=== PATIENT | male | born 1955 | race African-American/Black ===

== ENCOUNTER 2022-09-30 23:49 | Inpatient (IN) | payer MEDICAID, OTHER ==
[~2022-09-30] VITALS: Ht 175.3 cm; Wt 67.1 kg
--- NOTE | 2022-09-30 23:55 | NUR ---
GINA FROM [facility] C.O FEVER X 1 DAY
[2022-10-01] MEDS ORDERED: ONDANSETRON HCL/PF 4 MG/2 ML VIAL IVP ONE (00:30)
[2022-10-01] MEDS ORDERED: IV NS 0.9% 500 ML BAG IV ONE (00:30)
--- NOTE | 2022-10-01 00:45 | NUR ---
BLOOD COLLECTED AND SENT TO LAB
[2022-10-01] MEDS ORDERED: ONDANSETRON HCL/PF 4 MG/2 ML VIAL ONE (00:55)
--- NOTE | 2022-10-01 01:07 | NUR ---
COVID AND FLU SWABS COLLECTED AND SENT TO LAB.
[2022-10-01 01:10] LABS: BASOPHILS % (AUTO) 0.6 % (0.0-2.0); EOSINOPHILS % (AUTO) 0.1 % (0.0-6.0); HEMATOCRIT 39 % (39-51); HEMOGLOBIN 12.6 g/dL (13.5-17.5); LYMPHOCYTES # (AUTO) 1.1 K/uL (0.8-4.8); LYMPHOCYTES % (AUTO) 18.5 % (20.0-44.0); MEAN CORPUSCULAR HGB CONC 32 g/dl (31.0-36.0); MEAN CORPUSCULAR VOLUME 79 fL (80-96); MONOCYTES # (AUTO) 0.6 K/uL (0.1-1.30); MONOCYTES % (AUTO) 9.5 % (2.0-12.0); NEUTROPHILS # (AUTO) 4.4 K/uL (1.8-8.9); NEUTROPHILS % (AUTO) 71.3 % (43.0-81.0); PLATELET COUNT (AUTO) 168 K/uL (150-450); RED BLOOD CELL COUNT(AUTO) 4.92 MIL/uL (4.5-6.0); WHITE BLOOD COUNT (AUTO) 6.2 K/uL (4.3-11.0)
--- NOTE | 2022-10-01 01:14 | NUR ---
URINE COLLECTED AND SENT TO LAB
[2022-10-01 01:27] LABS: CALCIUM, SERUM 8.9 mg/dL (8.5-10.1); CARBON DIOXIDE 27 mmol/L (21-32); CHLORIDE 100 mmol/L (98-107); CREATININE 1.2 mg/dL (0.6-1.3); GLUCOSE 127 mg/dL (74-106); POTASSIUM 3.4 mmol/L (3.5-5.1); SODIUM SERUM 135 mmol/L (136-145); UREA NITROGEN, BLOOD 14 mg/dL (7-18)
[2022-10-01 01:40] LABS: ALANINE AMINOTRANSFERASE 14 U/L (12-78); ALBUMIN 3.3 g/dL (3.4-5.0); ALKALINE PHOSPHATASE 90 U/L (46-116); ASPARTATE AMINOTRANSFERASE 27 U/L (15-37); BILIRUBIN,DIRECT 0.1 mg/dL (0.0-0.2); BILIRUBIN,TOTAL 0.2 mg/dL (0.2-1.0); TOTAL PROTEIN, SERUM 8.3 g/dL (6.4-8.2)
[2022-10-01] MEDS ORDERED: ASPIRIN 325 MG TABLET PO ONE (02:00)
[2022-10-01 02:12] LABS: BILIRUBIN,URINE NEGATIVE (NEGATIVE); COLOR,URINE YELLOW (YELLOW); LEUKOCYTE ESTERASE ,URINE NEGATIVE (NEGATIVE); NITRITE, URINE NEGATIVE (NEGATIVE); PH,URINE 6.5 (5.0-8.0); PROTEIN,URINE 1+ mg/dl (NEGATIVE); UGLUCOSE NEGATIVE (NEGATIVE); UROBILINOGEN,URINE 0.2 EU/dL (0.2)
[2022-10-01 02:17] LABS: BACTERIA,URINE Rare /HPF (None Seen); SQUAMOUS EPITHELIAL CELL,UR Few /HPF (None Seen); WBC,URINE 0-2 /HPF (0-3)
[2022-10-01] MEDS ORDERED: ONDANSETRON HCL/PF 4 MG/2 ML VIAL IVP PRN (02:30)
[2022-10-01] MEDS ORDERED: ACETAMINOPHEN 325 MG TABLET PO PRN ×2 (02:30→09:00)
[2022-10-01] MEDS ORDERED: MORPHINE SULFATE INJ 2 MG/ML DISP.SYRIN IV PRN (02:30)
[2022-10-01] MEDS ORDERED: PIPERACILLIN /TAZOBACTAM 3.375 G VIAL IV ONE (02:44)
[2022-10-01] MEDS ORDERED: ASPIRIN 325 MG TABLET ONE (02:53)
[2022-10-01] MEDS ORDERED: VANCOMYCIN 1 GM in IV D5W 250 ML IV ONE (03:00)
[2022-10-01] MEDS ORDERED: PIPERACILLIN /TAZOBACTAM 3.375 G in IV D5W 50 ML IV ONE (03:00)
[2022-10-01] MEDS ORDERED: VANCOMYCIN 1 GM VIAL ONE (03:13)
--- NOTE | 2022-10-01 03:32 | NUR ---
PT BACK FROM CT Addendum: 10/01/22 at 0424 by ROLLY WRONG PT
[2022-10-01] MEDS ORDERED: ASPI-1420 PO (07:55)
[2022-10-01] MEDS ORDERED: DOCU-141 PO (07:55)
[2022-10-01] MEDS ORDERED: APIX5TAB PO (07:55)
[2022-10-01] MEDS ORDERED: MAGN400O6 PO (07:55)
[2022-10-01] MEDS ORDERED: ACET650S11 RC (07:55)
[2022-10-01] MEDS ORDERED: METF-440 PO (07:55)
[2022-10-01] MEDS ORDERED: MEMA10TA PO (07:55)
[2022-10-01] MEDS ORDERED: INSU100V11 SQ (07:55)
[2022-10-01] MEDS ORDERED: SENN-261 PO (07:55)
[2022-10-01] MEDS ORDERED: LOSA100T3 PO (07:55)
[2022-10-01] MEDS ORDERED: METO25TA20 PO (07:55)
[2022-10-01] MEDS ORDERED: DIVA125C2 PO ×2 (07:55)
[2022-10-01] MEDS ORDERED: LEVE500T9 PO (07:55)
[2022-10-01] MEDS ORDERED: BENZ-13 PO (07:55)
[2022-10-01] MEDS ORDERED: MULT-447 PO (07:55)
[2022-10-01] MEDS ORDERED: TAMS-12 PO (07:55)
[2022-10-01] MEDS ORDERED: TRAZ-257 PO (07:55)
[2022-10-01] MEDS ORDERED: ACET-868 PO (07:55)
[2022-10-01] MEDS ORDERED: OLAN2.5T3 PO (07:55)
[2022-10-01] MEDS ORDERED: CHOL100043 PO (07:55)
[2022-10-01] MEDS ORDERED: FINA5TAB11 PO (07:55)
[2022-10-01] MEDS ORDERED: ATOR40TA PO (07:55)
[2022-10-01] MEDS ORDERED: FAMO20TA8 PO (07:55)
[2022-10-01] MEDS ORDERED: IPRA3AMP23 IH (07:55)
[2022-10-01] MEDS ORDERED: OLAN5TAB3 PO (07:55)
--- NOTE | 2022-10-01 08:00 | NUR ---
ROOM 321-1
--- NOTE | 2022-10-01 08:27 | NUR ---
ROOM 326-1 PER INCLINED RAILWAY OPERATOR
--- NOTE | 2022-10-01 08:34 | NUR ---
CHRALENE GAINES, FOR REPORT, NOT AVAILABLE AT THIS TIME.
--- NOTE | 2022-10-01 08:44 | NUR ---
PT REPORT GIVEN TO CHARLENE GAINES
[2022-10-01] MEDS ORDERED: DEXTROSE 50%-WATER 50 ML DISP.SYRIN IV PRN (09:00)
[2022-10-01] MEDS ORDERED: MAGNESIUM HYDROXIDE 30 ML UDC PO PRN (09:00)
[2022-10-01] MEDS ORDERED: TRAZODONE 50 MG TABLET PO PRN (09:00)
[2022-10-01] MEDS ORDERED: ACETAMINOPHEN 650 MG/SUPP.RECT RC PRN (09:00)
--- NOTE | 2022-10-01 09:22 | NUR ---
MIDLINE NURSE AT BEDSIDE
--- NOTE | 2022-10-01 09:59 | NUR ---
MOVED TO ROOM SAFELY
--- NOTE | 2022-10-01 10:10 | NUR ---
RN NOTE PATIENT CAME TO UNIT VIA GURNEY WITH NO SIGN OF DISTRESS FROM ER. REPORT RECEIVED FROM ER NURSE. V/S TAKEN, STABLE AND RECORDED. SKIN ASSESSMENT DONE, SKIN INTACT. BELONGINGS CHECKED AND SIGNED. PATIENT WAS ORIENTED TO ROOM SET UP AND EDUCATED ON THE USE OF CALL LIGHT. PATIENT AWAKE IN BED RESTING A/O X 1. NO S/S OF PAIN NOTED AT THIS TIME. ON ROOM AIR, NO DISTRESS OR SHORTNESS OF BREATH NOTED. IV ACCESS JEFFERY MIDLINE, INTACT, PATENT AND FLUSHING WELL. FALL AND SAFETY MEASURES IN PLACE, BED ALARM ON, BED IN LOW AND LOCK POSITION, CALL LIGHT AND TABLE WITHIN EASY REACH, SIDE RAILS X2. WILL CONTINUE TO MONITOR.
[2022-10-01] MEDS: TAMSULOSIN 0.4 MG CAP.SR.24H PO SCH (11:33)
[2022-10-01] MEDS: SENNOSIDES 8.6 MG TABLET PO SCH (11:33)
[2022-10-01] MEDS: CHOLECALCIFEROL (VITAMIN D 3) 400 UNIT TABLET PO SCH (11:33)
[2022-10-01] MEDS: METFORMIN 500 MG TABLET PO SCH ×2 (11:33→17:14)
[2022-10-01] MEDS: LEVETIRACETAM (250 MG) 250 MG TABLET PO SCH ×2 (11:34→21:32)
[2022-10-01] MEDS: MEMANTINE HCL 5 MG TABLET PO SCH ×2 (11:34→17:14)
[2022-10-01] MEDS: BENZONATATE 100 MG CAPSULE PO SCH ×3 (11:34→17:13)
[2022-10-01] MEDS: FAMOTIDINE (20 MG) 20 MG TABLET PO SCH (11:34)
[2022-10-01] MEDS: ASPIRIN EC 81 MG TABLET.DR PO SCH (11:34)
[2022-10-01] MEDS: LOSARTAN POTASSIUM 50 MG TABLET PO SCH (11:34)
[2022-10-01] MEDS: MULTIVITAMINS,THERAGRAN 1 UDTAB TABLET PO SCH (11:35)
[2022-10-01] MEDS: METOPROLOL TARTRATE 50 MG TABLET PO SCH ×2 (11:35→21:00)
[2022-10-01] MEDS: OLANZAPINE 5 MG TABLET PO SCH ×3 (11:35→17:13)
[2022-10-01] MEDS: DOCUSATE SODIUM 100 MG CAPSULE PO SCH ×2 (11:35→17:14)
[2022-10-01] MEDS: APIXABAN 5 MG TABLET PO SCH ×2 (11:37→17:15)
[2022-10-01] MEDS: FINASTERIDE (5 MG) 5 MG TABLET PO SCH (11:41)
[2022-10-01] MEDS ORDERED: POTASSIUM CHLORIDE 20 MEQ TAB.PRT.SR PO ONE (12:00)
[2022-10-01 12:05] LABS: PHOSPHORUS 4.1 mg/dL (2.5-4.9)
[2022-10-01] MEDS: BLOOD SUGAR DIAGNOSTIC 1 EACH STRIP IN SCH ×3 (12:13→21:33)
[2022-10-01 12:19] LABS: THYROID STIMULATING HORMONE 1.171 uIU/mL (0.358-3.74)
[2022-10-01] MEDS: IV NS 0.9% 1,000 ML IV SCH ×2 (13:28→17:29)
[2022-10-01] MEDS: DIVALPROEX SODIUM 500 MG TABLET.DR PO SCH ×2 (13:28→17:13)
[2022-10-01 14:35] VITALS: BP 159/99
[2022-10-01 16:24] VITALS: BP 123/81
--- NOTE | 2022-10-01 19:03 | NUR ---
RN CLOSING NOTE PATIENT AWAKE IN BED RESTING A/O X 1. NO S/S OF PAIN NOTED AT THIS TIME. ON ROOM AIR, NO DISTRESS OR SHORTNESS OF BREATH NOTED. IV ACCESS JEFFERY MIDLINE, INTACT, PATENT AND FLUSHING WELL. SCHEDULE MEDICATIONS ADMINISTERED. PATIENT WAS TURNED AND REPOSITIONED PROTOCOL. FALL AND SAFETY MEASURES IN PLACE, BED ALARM ON, BED IN LOW AND LOCK POSITION, CALL LIGHT AND TABLE WITHIN EASY REACH, SIDE RAILS X2. WILL ENDORSE TO TRIP RIDER.
--- NOTE | 2022-10-01 19:39 | NUR ---
RN OPENING NOTE PATIENT AWAKE IN BED RESTING A/O X 1. NO S/S OF PAIN NOTED AT THIS TIME. ON ROOM AIR, NO DISTRESS OR SHORTNESS OF BREATH NOTED. IV ACCESS JEFFERY MIDLINE, INTACT, PATENT AND FLUSHING WELL. FALL AND SAFETY MEASURES IN PLACE, BED ALARM ON, BED IN LOW AND LOCK POSITION, CALL LIGHT AND TABLE WITHIN EASY REACH, SIDE RAILS X2.
[2022-10-01 20:00] VITALS: BP 105/57
[2022-10-01] MEDS: VANCOMYCIN 1 GM in IV D5W 250 ML IV SCH (20:16)
[2022-10-01] MEDS ORDERED: CEFEPIME 1 GM in IV D5W 50 ML IV SCH (21:00)
[2022-10-01] MEDS: ATORVASTATIN 40 MG TABLET PO SCH (21:32)
[2022-10-01] MEDS: OLANZAPINE 2.5 MG TABLET PO SCH (21:33)
[2022-10-01] MEDS: INSULIN REGULAR, HUMAN 100 UNIT/ML 3 ML VIAL SQ PRN (21:41)
[2022-10-01] MEDS: CEFEPIME 2 GM in IV D5W 100 ML IV SCH (21:42)
[2022-10-02] VITALS: BP 114/69
--- NOTE | 2022-10-02 00:53 | NUR ---
RN NOTE PRN TRAZODONE GIVEN FOR SLEEP. TOLERATED WELL.
[2022-10-02 04:00] VITALS: BP 112/76
[2022-10-02] MEDS: INSULIN REGULAR, HUMAN 100 UNIT/ML 3 ML VIAL SQ PRN ×2 (06:10→18:26)
[2022-10-02] MEDS: BLOOD SUGAR DIAGNOSTIC 1 EACH STRIP IN SCH ×4 (06:31→21:51)
--- NOTE | 2022-10-02 06:41 | NUR ---
RN CLOSING NOTE PATIENT AWAKE IN BED RESTING A/O X 1. NO S/S OF PAIN NOTED AT THIS TIME. ON ROOM AIR, NO DISTRESS OR SHORTNESS OF BREATH NOTED. IV ACCESS JEFFERY MIDLINE, INTACT, PATENT AND FLUSHING WELL. FALL AND SAFETY MEASURES IN PLACE, BED ALARM ON, BED IN LOW AND LOCK POSITION, CALL LIGHT AND TABLE WITHIN EASY REACH, SIDE RAILS X2.WILL ENDORSE CARE TO DAY SHIFT NURSE.
[2022-10-02 06:43] LABS: EOSINOPHILS % (AUTO) 7.6 % (0.0-6.0); HEMATOCRIT 34 % (39-51); HEMOGLOBIN 11.2 g/dL (13.5-17.5); LYMPHOCYTES # (AUTO) 1.1 K/uL (0.8-4.8); MEAN CORPUSCULAR HGB CONC 33 g/dl (31.0-36.0); MEAN CORPUSCULAR VOLUME 78 fL (80-96); MONOCYTES # (AUTO) 0.4 K/uL (0.1-1.30); MONOCYTES % (AUTO) 14.2 % (2.0-12.0); NEUTROPHILS % (AUTO) 37.2 % (43.0-81.0); PLATELET COUNT (AUTO) 149 K/uL (150-450); RED BLOOD CELL COUNT(AUTO) 4.32 MIL/uL (4.5-6.0); WHITE BLOOD COUNT (AUTO) 2.8 K/uL (4.3-11.0)
[2022-10-02 07:25] LABS: ALBUMIN 2.7 g/dL (3.4-5.0); BILIRUBIN,TOTAL 0.2 mg/dL (0.2-1.0); CALCIUM, SERUM 8.3 mg/dL (8.5-10.1); CREATININE 0.9 mg/dL (0.6-1.3); MAGNESIUM 1.9 mg/dL (1.8-2.4); PHOSPHORUS 3.4 mg/dL (2.5-4.9); POTASSIUM 3.7 mmol/L (3.5-5.1); TOTAL PROTEIN, SERUM 7.1 g/dL (6.4-8.2)
--- NOTE | 2022-10-02 07:36 | NUR ---
RN OPENING NOTE PATIENT AWAKE IN BED ASLEEP BUT AROUSABLE , WITH SITTER AT BEDSIDE A/O X 1. NO S/S OF PAIN NOTED AT THIS TIME. ON ROOM AIR, NO DISTRESS OR SHORTNESS OF BREATH NOTED. IV ACCESS JEFFERY MIDLINE, INTACT SL , PATENT AND INTACT . NO FEVER NOTED AND NO S/S OF COVID . FALL AND SAFETY MEASURES IN PLACE, BED ALARM ON, BED IN LOW AND LOCK POSITION, CALL LIGHT AND TABLE WITHIN EASY REACH, SIDE RAILS X2. WILL CONTINUE TO MONITOR
[2022-10-02] MEDS: DIVALPROEX SODIUM 500 MG TABLET.DR PO SCH ×3 (08:21→16:46)
[2022-10-02] MEDS: MULTIVITAMINS,THERAGRAN 1 UDTAB TABLET PO SCH (08:22)
[2022-10-02] MEDS: OLANZAPINE 5 MG TABLET PO SCH ×3 (08:22→16:46)
[2022-10-02] MEDS: FAMOTIDINE (20 MG) 20 MG TABLET PO SCH (08:22)
[2022-10-02] MEDS: LEVETIRACETAM (250 MG) 250 MG TABLET PO SCH ×2 (08:22→21:24)
[2022-10-02] MEDS: MEMANTINE HCL 5 MG TABLET PO SCH ×2 (08:22→16:46)
[2022-10-02] MEDS: SENNOSIDES 8.6 MG TABLET PO SCH (08:22)
[2022-10-02] MEDS: BENZONATATE 100 MG CAPSULE PO SCH ×3 (08:23→16:46)
[2022-10-02] MEDS: METFORMIN 500 MG TABLET PO SCH ×2 (08:23→16:46)
[2022-10-02] MEDS: DOCUSATE SODIUM 100 MG CAPSULE PO SCH ×2 (08:23→16:45)
[2022-10-02] MEDS: FINASTERIDE (5 MG) 5 MG TABLET PO SCH (08:23)
[2022-10-02] MEDS: ASPIRIN EC 81 MG TABLET.DR PO SCH (08:23)
[2022-10-02] MEDS: CHOLECALCIFEROL (VITAMIN D 3) 400 UNIT TABLET PO SCH (08:24)
[2022-10-02] MEDS: TAMSULOSIN 0.4 MG CAP.SR.24H PO SCH (08:24)
[2022-10-02] MEDS: APIXABAN 5 MG TABLET PO SCH ×2 (08:26→16:47)
[2022-10-02] MEDS: LOSARTAN POTASSIUM 50 MG TABLET PO SCH ×2 (08:28→08:32)
[2022-10-02] MEDS: METOPROLOL TARTRATE 50 MG TABLET PO SCH ×2 (08:32→21:24)
[2022-10-02] MEDS: VANCOMYCIN 1 GM in IV D5W 250 ML IV SCH (08:47)
[2022-10-02] MEDS: CEFEPIME 2 GM in IV D5W 100 ML IV SCH ×2 (10:37→21:23)
--- NOTE | 2022-10-02 10:50 | NUR ---
RN NOTES ENDORSED PATIENT TO MELVI WITH RN STORM , PATIENT FOR PUI FOR COVID , RESTRAINT WAS ORDERED PATIENT HAS THE BEHAVIOR OF CLIMBING OUR OF BED , ORDER NOTED AND CARRIED OUT .
--- NOTE | 2022-10-02 11:00 | NUR ---
RN OPENING NOTE PATIENT ALERT AND ORIENTED X1.PT HAS PERIODS OF CONFUSION. BLE NO S/S OF PAIN/DISCOMFORT NOTED AT THIS TIME. ON ROOM AIR TOLERATING WELL AT 99%. IV ACCESS JEFFERY MIDLINE, INTACT , PATENT AND INTACT, FLUSHING WELL. ALL SAFETY MEASURES IN PLACE, BED ALARM ON, BED IN LOW AND LOCKED POSITION, CALL LIGHT AND TABLE WITHIN EASY REACH, SIDE RAILS X2.
[2022-10-02 12:00] VITALS: BP 145/85
[2022-10-02 16:00] VITALS: BP 159/97
[2022-10-02 17:00] VITALS: BP 159/97
[2022-10-02] MEDS ORDERED: OLANZAPINE 10 MG VIAL IM ONE (17:30)
--- NOTE | 2022-10-02 17:30 | NUR ---
RN NOTE ATTEMPTED TO GIVE PT SCHEDULED PSYCH MEDS. REMOVED ONE RESTRAINT. PT GETTING OUT OF BED, ASKED PT TO GO BACK TO BED.PT REFUSED AND GRABBED MY RIGHT WRIST. ALEX HINES WAS CALLED. SECURITY, NURSE, AND NURSING ASSISTANTS WERE IN ROOM. HELPED PT USE RESTROOM, BUT PATIENT REFUSED TO GO BACK TO BED FOR A FEW MINUTES. PURCHASING AGENT MARIOLA KEEN WAS NOTIFIED.AND ORDERED ZYPREXA IM.
--- NOTE | 2022-10-02 18:30 | NUR ---
RN NOTE ZYPREXA IM NOT GIVEN DUE TO PT SLEEPING. MARIOLA KEEN AWARE AND ORDERED PRN FOR BROOCH MAKER NOVELTY
--- NOTE | 2022-10-02 19:45 | NUR ---
RN CLOSING NOTE PATIENT ALERT AND ORIENTED X1.PT HAS PERIODS OF CONFUSION. BLE NO S/S OF PAIN/DISCOMFORT NOTED AT THIS TIME. ON ROOM AIR TOLERATING WELL AT 99%.PT SLEEPING AT THIS TIME, BUT EASILY AROUSABLE. IV ACCESS JEFFERY MIDLINE, INTACT , PATENT AND INTACT, FLUSHING WELL. ALL SAFETY MEASURES IN PLACE, BED ALARM ON, BED IN LOW AND LOCKED POSITION, CALL LIGHT AND TABLE WITHIN EASY REACH, SIDE RAILS X2.
[2022-10-02 20:00] VITALS: BP 154/93
[2022-10-02] MEDS: OLANZAPINE 2.5 MG TABLET PO SCH (21:24)
[2022-10-02] MEDS: ATORVASTATIN 40 MG TABLET PO SCH (21:24)
[2022-10-02] MEDS ORDERED: OLANZAPINE 10 MG VIAL IM PRN (22:00)
--- NOTE | 2022-10-03 00:01 | NUR ---
MS RN OPENING NOTE PT RECEIVED IN BED, AWAKE, A&O X2, EXTREMELY RESTLESS. PT ON RA WITH CURRENT O2SAT OF 100%; NO S/S OF RESP DISTRESS, NO SOB OR COUGH, NON-LABORED AND EQUAL BREATHING. VSS, WILL CONTINUE TO MONITOR THROUGHOUT THE NIGHT NEEDED. JEFFERY MIDLINE INTACT AND PATENT, FLUSHES EASILY WITH NO RESISTANCE; NO MEDS/FLUIDS INFUSING THROUGH IT. PT NOTED TO HAVE BILATERAL SOFT WRIST RESTRAINTS; NO SIGNS OF IMPAIRED SKIN OR CIRCULATION; WILL PROVIDE PT WITH RELEASE OF RESTRAINTS, FLUIDS, HYGIENE. BED IN LOWEST POSITION, CALL LIGHT WITHIN REACH, SIDE RAILS UP X3. WILL CONTINUE TO MONITOR THROUGHOUT THE NIGHT.
[2022-10-03 04:00] VITALS: BP 184/103
[2022-10-03] MEDS: hydrALAZINE HCL IV 20 MG VIAL IV PRN (04:12)
--- NOTE | 2022-10-03 04:13 | NUR ---
RN NOTE PT NOTED TO HAVE BP OF 184/103, HR 57. PT ADMINISTERED HYDRALAZINE 10 MG IV. WILL MONITOR FOR EFFECTIVENESS.
--- NOTE | 2022-10-03 06:18 | NUR ---
MS RN CLOSING NOTE PT REMAINS IN BED, AWAKE, A&O X2, EXTREMELY RESTLESS, YELLING OUT. CONTINUES TO BE ON RA WITH O2SAT STABLE AT 100%; NO S/S OF RESP DISTRESS, NO SOB OR COUGH, NON-LABORED AND EQUAL BREATHING. BP NOTED TO BE ELEVATED FOR 0400; OTHERWISE VSS DURING THE NIGHT. JEFFERY MIDLINE INTACT AND PATENT, FLUSHES EASILY WITH NO RESISTANCE; NO MEDS/FLUIDS INFUSING THROUGH IT. BILATERAL SOFT WRIST RESTRAINTS REMAIN IN PLACE; NO SIGNS OF IMPAIRED SKIN OR CIRCULATION; PROVIDED PT WITH RELEASE OF RESTRAINTS, FLUIDS, HYGIENE. ALL DUE MEDS ADMINISTERED DURING THE NIGHT. BED IN LOWEST POSITION, CALL LIGHT WITHIN REACH, SIDE RAILS UP X3. WILL ENDORSE TO DAYSHIFT NURSE TO CONTINUE CARE.
[2022-10-03 07:42] LABS: ALBUMIN 3.1 g/dL (3.4-5.0); BILIRUBIN,TOTAL 0.4 mg/dL (0.2-1.0); CALCIUM, SERUM 8.8 mg/dL (8.5-10.1); CREATININE 0.9 mg/dL (0.6-1.3); POTASSIUM 3.2 mmol/L (3.5-5.1); TOTAL PROTEIN, SERUM 8.3 g/dL (6.4-8.2)
[2022-10-03 08:00] VITALS: BP 131/71
[2022-10-03] MEDS: VANCOMYCIN HCL 0.75 GM in IV D5W 250 ML IV SCH ×2 (08:26→20:17)
[2022-10-03] MEDS: BLOOD SUGAR DIAGNOSTIC 1 EACH STRIP IN SCH ×4 (08:26→22:26)
[2022-10-03] MEDS: BENZONATATE 100 MG CAPSULE PO SCH ×3 (08:26→17:54)
[2022-10-03] MEDS: DIVALPROEX SODIUM 500 MG TABLET.DR PO SCH ×3 (08:27→17:53)
[2022-10-03] MEDS: LEVETIRACETAM (250 MG) 250 MG TABLET PO SCH ×2 (08:27→21:33)
[2022-10-03] MEDS: SENNOSIDES 8.6 MG TABLET PO SCH (08:27)
[2022-10-03] MEDS: MEMANTINE HCL 5 MG TABLET PO SCH ×2 (08:27→17:54)
[2022-10-03] MEDS: ASPIRIN EC 81 MG TABLET.DR PO SCH (08:27)
[2022-10-03] MEDS: TAMSULOSIN 0.4 MG CAP.SR.24H PO SCH (08:28)
[2022-10-03] MEDS: CHOLECALCIFEROL (VITAMIN D 3) 400 UNIT TABLET PO SCH (08:28)
[2022-10-03] MEDS: MULTIVITAMINS,THERAGRAN 1 UDTAB TABLET PO SCH (08:28)
[2022-10-03] MEDS: FAMOTIDINE (20 MG) 20 MG TABLET PO SCH (08:28)
[2022-10-03] MEDS: FINASTERIDE (5 MG) 5 MG TABLET PO SCH (08:29)
[2022-10-03] MEDS: DOCUSATE SODIUM 100 MG CAPSULE PO SCH ×2 (08:29→17:54)
[2022-10-03] MEDS: METFORMIN 500 MG TABLET PO SCH ×3 (08:29→17:54)
[2022-10-03] MEDS: OLANZAPINE 5 MG TABLET PO SCH ×3 (08:29→17:54)
[2022-10-03] MEDS: APIXABAN 5 MG TABLET PO SCH ×2 (08:31→17:55)
[2022-10-03] MEDS: LOSARTAN POTASSIUM 50 MG TABLET PO SCH (08:47)
[2022-10-03] MEDS: METOPROLOL TARTRATE 50 MG TABLET PO SCH ×2 (08:48→21:33)
[2022-10-03] MEDS: CEFEPIME 2 GM in IV D5W 100 ML IV SCH ×2 (09:59→21:29)
[2022-10-03] MEDS ORDERED: LORAZEPAM 1 MG TABLET PO PRN (10:00)
[2022-10-03] MEDS: POTASSIUM CHLORIDE 20 MEQ POWDER PACKET PO SCH ×2 (11:14→12:09)
[2022-10-03] MEDS: INSULIN REGULAR, HUMAN 100 UNIT/ML 3 ML VIAL SQ PRN ×2 (11:40→22:29)
--- NOTE | 2022-10-03 15:30 | NUR ---
RN NOTES: BLOOD SUGAR 77 ASKED MARIOLA KEEN IF OK TO GIVE METFORMIN HE SAID TO HOLD, METFORMIN HELD
[2022-10-03 16:00] VITALS: BP 163/103
[2022-10-03 20:00] VITALS: BP 134/97
[2022-10-03] MEDS: ATORVASTATIN 40 MG TABLET PO SCH (22:26)
[2022-10-03] MEDS: TRAZODONE 50 MG TABLET PO SCH (22:27)
--- NOTE | 2022-10-03 23:35 | NUR ---
RN CLOSING NOTE PATIENT ALERT AND ORIENTED X1.PT HAS PERIODS OF CONFUSION. BLE NO S/S OF PAIN/DISCOMFORT NOTED AT THIS TIME. ON ROOM AIR TOLERATING WELL AT 99%.PT SLEEPING AT THIS TIME, BUT EASILY AROUSABLE.NOTED WITH MULTIPLE EPISODES OF AGITATION, FIGHTING AND RESISTING CARE. IV ACCESS JEFFERY MIDLINE, INTACT , PATENT AND INTACT, FLUSHING WELL. ALL SAFETY MEASURES IN PLACE, BED ALARM ON, BED IN LOW AND LOCKED POSITION, CALL LIGHT AND TABLE WITHIN EASY REACH, SIDE RAILS X2.ENDORSED TO BARBI CHANG FOR EFFIE
[2022-10-04] VITALS: BP 172/89
[2022-10-04] MEDS: hydrALAZINE HCL IV 20 MG VIAL IV PRN (04:38)
[2022-10-04 06:42] LABS: BASOPHILS % (AUTO) 0.2 % (0.0-2.0); EOSINOPHILS % (AUTO) 3.1 % (0.0-6.0); HEMATOCRIT 43 % (39-51); HEMOGLOBIN 14.3 g/dL (13.5-17.5); LYMPHOCYTES # (AUTO) 1.1 K/uL (0.8-4.8); LYMPHOCYTES % (AUTO) 23.3 % (20.0-44.0); MEAN CORPUSCULAR HGB CONC 33 g/dl (31.0-36.0); MEAN CORPUSCULAR VOLUME 79 fL (80-96); MONOCYTES # (AUTO) 0.3 K/uL (0.1-1.30); MONOCYTES % (AUTO) 6.7 % (2.0-12.0); NEUTROPHILS # (AUTO) 3.2 K/uL (1.8-8.9); NEUTROPHILS % (AUTO) 66.7 % (43.0-81.0); PLATELET COUNT (AUTO) 185 K/uL (150-450); RED BLOOD CELL COUNT(AUTO) 5.51 MIL/uL (4.5-6.0); WHITE BLOOD COUNT (AUTO) 4.8 K/uL (4.3-11.0)
[2022-10-04 06:52] LABS: ALBUMIN 3.4 g/dL (3.4-5.0); BILIRUBIN,TOTAL 0.4 mg/dL (0.2-1.0); CALCIUM, SERUM 9.5 mg/dL (8.5-10.1); CREATININE 1.1 mg/dL (0.6-1.3); POTASSIUM 3.7 mmol/L (3.5-5.1); TOTAL PROTEIN, SERUM 9.2 g/dL (6.4-8.2)
[2022-10-04 08:00] VITALS: BP 168/112
[2022-10-04] MEDS: BLOOD SUGAR DIAGNOSTIC 1 EACH STRIP IN SCH ×4 (09:15→22:22)
[2022-10-04] MEDS: SENNOSIDES 8.6 MG TABLET PO SCH (09:15)
[2022-10-04] MEDS: OLANZAPINE 5 MG TABLET PO SCH ×3 (09:16→17:46)
[2022-10-04] MEDS: METFORMIN 500 MG TABLET PO SCH ×2 (09:16→17:46)
[2022-10-04] MEDS: CHOLECALCIFEROL (VITAMIN D 3) 400 UNIT TABLET PO SCH (09:16)
[2022-10-04] MEDS: ASPIRIN EC 81 MG TABLET.DR PO SCH (09:16)
[2022-10-04] MEDS: BENZONATATE 100 MG CAPSULE PO SCH ×3 (09:16→17:46)
[2022-10-04] MEDS: FINASTERIDE (5 MG) 5 MG TABLET PO SCH (09:16)
[2022-10-04] MEDS: LOSARTAN POTASSIUM 50 MG TABLET PO SCH (09:16)
[2022-10-04] MEDS: TAMSULOSIN 0.4 MG CAP.SR.24H PO SCH (09:17)
[2022-10-04] MEDS: DIVALPROEX SODIUM 500 MG TABLET.DR PO SCH ×3 (09:17→17:46)
[2022-10-04] MEDS: FAMOTIDINE (20 MG) 20 MG TABLET PO SCH (09:17)
[2022-10-04] MEDS: MEMANTINE HCL 5 MG TABLET PO SCH ×2 (09:18→17:46)
[2022-10-04] MEDS: DOCUSATE SODIUM 100 MG CAPSULE PO SCH ×2 (09:18→17:46)
[2022-10-04] MEDS: LEVETIRACETAM (250 MG) 250 MG TABLET PO SCH ×2 (09:18→22:22)
[2022-10-04] MEDS: APIXABAN 5 MG TABLET PO SCH ×2 (09:19→17:45)
[2022-10-04] MEDS: MULTIVITAMINS,THERAGRAN 1 UDTAB TABLET PO SCH (09:23)
[2022-10-04] MEDS: METOPROLOL TARTRATE 50 MG TABLET PO SCH ×2 (09:23→22:21)
[2022-10-04] MEDS: INSULIN REGULAR, HUMAN 100 UNIT/ML 3 ML VIAL SQ PRN ×4 (10:11→19:39)
--- NOTE | 2022-10-04 14:59 | NUR ---
RN NOTE PATIENT HAS GLUCOSE LEVEL OF 131 , PATIENT REFUSED 2 UNITS OF INSULIN AFTER 3 ATTEMPTS TO ADMINISTER, PATIENT BECAME COMBATIVE. NOTIFED
[2022-10-04 16:00] VITALS: BP 146/101
--- NOTE | 2022-10-04 19:20 | NUR ---
RN NOTE PT IN BED, AO X 1-2, IN NO ACUTE DISTRESS, SATURATION AT 99% ON RA, HR IS 91. JEFFERY MIDLINE PATENT AND FLUSHING WELL, SALINE LOCKED. B SOFT WRIST RESTRAINTS IN PLACE, SKIN AND CIRCULATION ARE WNL. SAFETY MEASURES IN PLACE, BED IS LOCKED AND AT LOWEST POSITION, HOB ELEVATED, CALL LIGHT WITHIN REACH OF PATIENT. WILL CONT TO MONITOR AND REASSESS.
--- NOTE | 2022-10-04 20:42 | NUR ---
RN CLOSING NOTE PATIENT ALERT AND ORIENTED X 2. PT HAS PERIODS OF CONFUSION. NO S/S OF PAIN/DISCOMFORT NOTED AT THIS TIME. ON ROOM AIR TOLERATING WELL AT 94%. PT SLEEPING AT THIS TIME, BUT EASILY AROUSABLE. NOTED WITH MULTIPLE EPISODES OF AGITATION, FIGHTING AND RESISTING CARE. IV ACCESS JEFFERY MIDLINE, INTACT , PATENT AND INTACT, FLUSHING WELL. ALL SAFETY MEASURES IN PLACE, BED ALARM ON, BED IN LOW AND LOCKED POSITION, CALL LIGHT AND TABLE WITHIN EASY REACH, SIDE RAILS X2.
[2022-10-04] MEDS: ATORVASTATIN 40 MG TABLET PO SCH (22:22)
[2022-10-04] MEDS: TRAZODONE 50 MG TABLET PO SCH (22:22)
[2022-10-05 04:00] VITALS: BP 149/75
[2022-10-05 08:00] VITALS: BP 143/84
[2022-10-05] MEDS ORDERED: ACETAMINOPHEN 650 MG/20.3 ML UDC PO PRN ×2 (08:30)
[2022-10-05] MEDS: SENNOSIDES 8.6 MG TABLET PO SCH (09:00)
[2022-10-05] MEDS: ASPIRIN EC 81 MG TABLET.DR PO SCH (09:00)
[2022-10-05] MEDS: CHOLECALCIFEROL (VITAMIN D 3) 400 UNIT TABLET PO SCH (09:00)
[2022-10-05] MEDS: TAMSULOSIN 0.4 MG CAP.SR.24H PO SCH (09:00)
[2022-10-05] MEDS: LOSARTAN POTASSIUM 50 MG TABLET PO SCH (09:00)
[2022-10-05] MEDS: VALPROIC ACID 250 MG/5 ML UDC PO SCH ×3 (09:00→17:00)
[2022-10-05] MEDS: METOPROLOL TARTRATE 50 MG TABLET PO SCH ×2 (09:00→21:00)
[2022-10-05] MEDS ORDERED: LEVETIRACETAM SOL (5 ML) 100 MG/ML UDC PO SCH (09:00)
[2022-10-05] MEDS: OLANZAPINE 5 MG TABLET PO SCH ×3 (09:00→17:00)
[2022-10-05] MEDS: MEMANTINE HCL 5 MG TABLET PO SCH ×2 (09:00→17:00)
[2022-10-05] MEDS: BENZONATATE 100 MG CAPSULE PO SCH ×3 (09:00→17:00)
[2022-10-05] MEDS: DOCUSATE SODIUM LIQ 100 MG/10 ML UDC PO SCH ×2 (09:00→17:00)
[2022-10-05] MEDS: FAMOTIDINE (20 MG) 20 MG TABLET PO SCH (09:00)
[2022-10-05] MEDS: APIXABAN 5 MG TABLET PO SCH ×2 (09:00→17:00)
[2022-10-05] MEDS: METFORMIN 500 MG TABLET PO SCH ×2 (09:00→17:00)
[2022-10-05] MEDS: FINASTERIDE (5 MG) 5 MG TABLET PO SCH (09:00)
[2022-10-05] MEDS: MULTIVITAMINS,THERAGRAN 1 UDTAB TABLET PO SCH (09:00)
[2022-10-05] MEDS: BLOOD SUGAR DIAGNOSTIC 1 EACH STRIP IN SCH ×4 (09:46→22:06)
--- NOTE | 2022-10-05 09:59 | NUR ---
RN NOTE NOTIFIED MARIOLA KEEN MD PATIENT ASPIRATING BREAKFAST. MD ORDERED RT TO SUCTION AND SWALLOW EVALUATION. PATIENT IS COMBATIVE AT THIS TIME.
[2022-10-05 16:00] VITALS: BP 130/83
[2022-10-05 17:07] LABS: *SPE A/G RATIO 0.7 (0.7-1.7); *SPE ALPHA-1-GLOBULIN 0.3 g/dL (0.0-0.4); *SPE ALPHA-2-GLOBULIN 0.9 g/dL (0.4-1.0); *SPE BETA GLOBULIN 1.5 g/dL (0.7-1.3); *SPE M-SPIKE Not Observed g/dL (Not Observed)
[2022-10-05] MEDS: INSULIN REGULAR, HUMAN 100 UNIT/ML 3 ML VIAL SQ PRN ×2 (18:22→22:07)
--- NOTE | 2022-10-05 19:10 | NUR ---
RN NOTE PT IN BED, AO X 1-2, IN NO ACUTE DISTRESS, SATURATION AT 97% ON 2L VIA NC, HR IS 111. JEFFERY MIDLINE PATENT AND FLUSHING WELL, SALINE LOCKED. B SOFT WRIST RESTRAINTS IN PLACE, SKIN AND CIRCULATION ARE WNL. SAFETY MEASURES IN PLACE, BED IS LOCKED AND AT LOWEST POSITION, HOB ELEVATED, CALL LIGHT WITHIN REACH OF PATIENT. WILL CONT TO MONITOR AND REASSESS.
[2022-10-05 20:00] VITALS: BP 139/67
--- NOTE | 2022-10-05 20:24 | NUR ---
RN CLOSING NOTE PATIENT ALERT AND ORIENTED X 2. BREATHING ON NC OF 4LPM AT 91%. PATIENT COMBATIVE AND REFUSING CARE. IV ACCESS JEFFERY MIDLINE, INTACT , PATENT AND INTACT, FLUSHING WELL. ALL SAFETY MEASURES IN PLACE, BED ALARM ON, BED IN LOW AND LOCKED POSITION, CALL LIGHT AND TABLE WITHIN EASY REACH, SIDE RAILS X2. WILL ENDORSE CONTINUITY OF CARE TO TOLL PATROLMAN
[2022-10-05] MEDS ORDERED: CEFEPIME 1 GM in IV D5W 50 ML IV SCH (21:00)
[2022-10-05] MEDS: CEFEPIME 2 GM in IV D5W 100 ML IV SCH (21:37)
[2022-10-05] MEDS: TRAZODONE 50 MG TABLET PO SCH (21:44)
[2022-10-05] MEDS: ATORVASTATIN 40 MG TABLET PO SCH (21:44)
[2022-10-05] MEDS ORDERED: LEVETIRACETAM (500MG) 500 MG/5 ML VIAL IV ONE (22:35)
[2022-10-05] MEDS: LEVETIRACETAM (500MG) 500 MG in IV NS 0.9% 100 ML IV SCH (22:39)
[2022-10-05] MEDS: LORAZEPAM INJ 2 MG/ML VIAL IV PRN (23:03)
[2022-10-06 04:00] VITALS: BP 125/80
[2022-10-06] MEDS: CEFEPIME 2 GM in IV D5W 100 ML IV SCH ×3 (04:12→21:33)
[2022-10-06 08:00] VITALS: BP 142/66
[2022-10-06] MEDS: VALPROIC ACID 250 MG/5 ML UDC PO SCH ×3 (08:00→18:03)
[2022-10-06] MEDS: BLOOD SUGAR DIAGNOSTIC 1 EACH STRIP IN SCH ×4 (08:01→21:41)
[2022-10-06 08:02] LABS: CALCIUM, SERUM 8.3 mg/dL (8.5-10.1); POTASSIUM 3.9 mmol/L (3.5-5.1)
--- NOTE | 2022-10-06 08:15 | NUR ---
RN NOTE PATIENT BLOOD SUGAR 133, BUT DID NOT ADMINISTER INSULIN BECAUSE PATIENT IS NPO, INSULIN NOT GIVEN DUE TO RISK OF HYPOGLYCEMIA.
--- NOTE | 2022-10-06 08:45 | NUR ---
RN NOTE PATIENT ASPIRATED YESTERDY AND HE IS GOING TO HAVE SWALLOW EVALUATION TODAY. CHARGE NURSE INFORMED AND SHE SAID TO HOLD ALL PO MEDICATION UNTIL WE GET A CLARIFICATION FORM PATIENT'S DOCTOR.
[2022-10-06] MEDS: ASPIRIN EC 81 MG TABLET.DR PO SCH (09:00)
[2022-10-06] MEDS: TAMSULOSIN 0.4 MG CAP.SR.24H PO SCH (09:00)
[2022-10-06] MEDS: DOCUSATE SODIUM LIQ 100 MG/10 ML UDC PO SCH ×2 (09:00→18:04)
[2022-10-06] MEDS: FAMOTIDINE (20 MG) 20 MG TABLET PO SCH (09:00)
[2022-10-06] MEDS: MEMANTINE HCL 5 MG TABLET PO SCH ×2 (09:00→18:04)
[2022-10-06] MEDS: MULTIVITAMINS,THERAGRAN 1 UDTAB TABLET PO SCH (09:00)
[2022-10-06] MEDS: FINASTERIDE (5 MG) 5 MG TABLET PO SCH (09:00)
[2022-10-06] MEDS: BENZONATATE 100 MG CAPSULE PO SCH ×3 (09:00→18:04)
[2022-10-06] MEDS: APIXABAN 5 MG TABLET PO SCH ×2 (09:00→18:05)
[2022-10-06] MEDS: OLANZAPINE 5 MG TABLET PO SCH ×3 (09:00→18:03)
[2022-10-06] MEDS: METOPROLOL TARTRATE 50 MG TABLET PO SCH ×2 (09:00→21:34)
[2022-10-06] MEDS: SENNOSIDES 8.6 MG TABLET PO SCH (09:00)
[2022-10-06] MEDS: METFORMIN 500 MG TABLET PO SCH ×2 (09:00→18:03)
[2022-10-06] MEDS: CHOLECALCIFEROL (VITAMIN D 3) 400 UNIT TABLET PO SCH (09:00)
[2022-10-06] MEDS: LOSARTAN POTASSIUM 50 MG TABLET PO SCH (09:00)
[2022-10-06] MEDS: LEVETIRACETAM (500MG) 500 MG in IV NS 0.9% 100 ML IV SCH ×2 (10:09→21:34)
[2022-10-06] MEDS: IV D5/ 0.9% NACL 1,000 ML IV SCH (12:31)
--- NOTE | 2022-10-06 13:00 | NUR ---
RN NOTE PATIENT IS NPO DR. KEEN ORDERED NPO EXCEPT MEDIATIONS CRUSHED WITH APPLE SAUCE. PATIENT COULD TOLERATE THE CRUSHED MEDIATION WITH APPLE SAUCE WITHOUT ASPIRATION OR DISTRESS. ALL VITALS WNL.
[2022-10-06 16:00] VITALS: BP 115/71
--- NOTE | 2022-10-06 19:15 | NUR ---
RN NOTE PT IN BED, AO X 1-2, IN NO ACUTE DISTRESS, SATURATION AT 98% ON 4L VIA NC, HR IS 95. JEFFERY MIDLINE PATENT AND FLUSHING WELL, WITH D5NS AT 75 ML/HR. B SOFT WRIST RESTRAINTS IN PLACE, SKIN AND CIRCULATION ARE WNL. SAFETY MEASURES IMPLEMENTED, BED IS LOCKED AND AT LOWEST POSITION, HOB ELEVATED, CALL LIGHT WITHIN REACH OF PATIENT. WILL CONT TO MONITOR AND REASSESS.
--- NOTE | 2022-10-06 19:30 | NUR ---
RN CLOSING NOTE PATIENT ALERT AND ORIENTED X 2-3. BREATHING ON NC OF 4LPM AT 96%. PATIENT SLEPT MOST OF THE CASEY AND WOKE UP AND MEDCIATION WERE ADMINISTERED CRUSHED WITH APPLE SAUCE PATIENT IS NPO EXCEPT MEDS. IV D5 AT 75ML/HR RUNNING. ORDERED BY DR. KEEN. ACCESS JEFFERY MIDLINE, INTACT AND FLUSHING WELL. ALL SAFETY MEASURES IN PLACE, BED ALARM ON, BED IN LOW AND LOCKED POSITION, CALL LIGHT AND TABLE WITHIN EASY REACH, SIDE RAILS X2. WILL ENDORSE CONTINUITY OF CARE TO CAN SEALER NURSE.
[2022-10-06 20:00] VITALS: BP 120/84
[2022-10-06] MEDS: TRAZODONE 50 MG TABLET PO SCH (21:34)
[2022-10-06] MEDS: ATORVASTATIN 40 MG TABLET PO SCH (21:34)
[2022-10-06] MEDS: INSULIN REGULAR, HUMAN 100 UNIT/ML 3 ML VIAL SQ PRN (21:42)
[2022-10-07] MEDS: LORAZEPAM INJ 2 MG/ML VIAL IV PRN (03:25)
[2022-10-07] MEDS: IV D5/ 0.9% NACL 1,000 ML IV SCH ×2 (03:26→15:49)
[2022-10-07 04:00] VITALS: BP 125/80
[2022-10-07] MEDS: CEFEPIME 2 GM in IV D5W 100 ML IV SCH ×3 (04:18→22:10)
--- NOTE | 2022-10-07 07:05 | NUR ---
RN notes Received patient in bed. Patient is resting without active complaint. IV site is dry and intact with NS running at 75mL/hr. Circulation is good with restraints use. Call amin is placed within reach. Bed is locked and placed in the lowest position. All safety measures have been implemented. Will continue monitoring and care.
[2022-10-07] MEDS: BLOOD SUGAR DIAGNOSTIC 1 EACH STRIP IN SCH ×4 (07:30→22:32)
[2022-10-07 07:37] LABS: CALCIUM, SERUM 8.1 mg/dL (8.5-10.1); POTASSIUM 3.8 mmol/L (3.5-5.1)
[2022-10-07 08:00] VITALS: BP 101/63
[2022-10-07] MEDS: MEMANTINE HCL 5 MG TABLET PO SCH ×2 (08:34→17:22)
[2022-10-07] MEDS: FAMOTIDINE (20 MG) 20 MG TABLET PO SCH (08:34)
[2022-10-07] MEDS: CHOLECALCIFEROL (VITAMIN D 3) 400 UNIT TABLET PO SCH (08:34)
[2022-10-07] MEDS: DOCUSATE SODIUM LIQ 100 MG/10 ML UDC PO SCH ×2 (08:34→17:22)
[2022-10-07] MEDS: OLANZAPINE 5 MG TABLET PO SCH ×3 (08:34→17:22)
[2022-10-07] MEDS: METFORMIN 500 MG TABLET PO SCH ×2 (08:34→17:22)
[2022-10-07] MEDS: BENZONATATE 100 MG CAPSULE PO SCH ×3 (08:35→17:23)
[2022-10-07] MEDS: MULTIVITAMINS,THERAGRAN 1 UDTAB TABLET PO SCH (08:36)
[2022-10-07] MEDS: SENNOSIDES 8.6 MG TABLET PO SCH (08:36)
[2022-10-07] MEDS: TAMSULOSIN 0.4 MG CAP.SR.24H PO SCH (08:36)
[2022-10-07] MEDS: ASPIRIN EC 81 MG TABLET.DR PO SCH (08:36)
[2022-10-07] MEDS: FINASTERIDE (5 MG) 5 MG TABLET PO SCH (08:36)
[2022-10-07] MEDS: METOPROLOL TARTRATE 50 MG TABLET PO SCH ×2 (08:37→22:11)
[2022-10-07] MEDS: INSULIN REGULAR, HUMAN 100 UNIT/ML 3 ML VIAL SQ PRN (08:40)
[2022-10-07] MEDS: APIXABAN 5 MG TABLET PO SCH ×2 (08:41→17:25)
[2022-10-07] MEDS: VALPROIC ACID 250 MG/5 ML UDC PO SCH ×3 (08:45→17:23)
[2022-10-07] MEDS: LOSARTAN POTASSIUM 50 MG TABLET PO SCH (08:45)
[2022-10-07] MEDS: LEVETIRACETAM (500MG) 500 MG in IV NS 0.9% 100 ML IV SCH (10:35)
--- NOTE | 2022-10-07 14:30 | NUR ---
RN notes Patient didn't pass urine during this shift. Assisted patient to sit at bedside and try to urinate. He still couldn't pass urine. Bladder scan showed >300mL residual urine. Informed DEBBIE Mathews about acute retention of urine, he ordered nettles insertion. Done as ordered.
[2022-10-07 16:00] VITALS: BP 96/62
--- NOTE | 2022-10-07 18:46 | NUR ---
RN notes Patient is resting in bed. Noted that patient is tired-looking all day without any active complaint. Awake to pain. No choking was noted, but observed that his swallowing is very slow. Fed patient meds and fluids with a small spoon. Vital signs are normal. Morton collected 400mL yellowish urine. Circulation with restraints use is good. Call amin is placed within reach. Bed is locked and placed in the lowest position. All safety measures have been implemented. Will endorse PM nurse to continue monitoring and care.
[2022-10-07 20:00] VITALS: BP 136/80
--- NOTE | 2022-10-07 20:00 | NUR ---
MS RN NOTE RECEIVED PT IN BED SEMI SANCHEZ POSITION. A/O X 1-2 CONFUSED. NO SOB, NO DISTRESS OR DISCOMFORT NOTED. DENIES PAIN. IVF D5 1/2 NS INFUSING AT JEFFERY MIDLINE AT 75 ML/HR, NO S/S OF INFILTRATION NOTED. BILATERAL SOFT WRIST RESTRAINTS ON, F/C INTACT AND PATENT DRAINING YELLOWISH COLOR URINE. KEPT HIM DRY AND CLEAN. ALL NEEDS ATTENDED. VSS. CONTINUE TO MONITOR HIM.
[2022-10-07] MEDS: ATORVASTATIN 40 MG TABLET PO SCH (22:11)
[2022-10-07] MEDS: TRAZODONE 50 MG TABLET PO SCH (22:11)
[2022-10-07] MEDS: LEVETIRACETAM SOL (5 ML) 100 MG/ML UDC GT SCH (22:13)
[2022-10-08 04:00] VITALS: BP 128/70
[2022-10-08] MEDS: CEFEPIME 2 GM in IV D5W 100 ML IV SCH ×2 (04:42→12:54)
[2022-10-08] MEDS: IV D5/ 0.9% NACL 1,000 ML IV SCH (04:42)
[2022-10-08] MEDS: LOSARTAN POTASSIUM 50 MG TABLET PO SCH (10:15)
[2022-10-08 10:16] VITALS: BP 161/74
[2022-10-08] MEDS: METOPROLOL TARTRATE 50 MG TABLET PO SCH (10:16)
[2022-10-08] MEDS: LEVETIRACETAM SOL (5 ML) 100 MG/ML UDC GT SCH (10:16)
[2022-10-08] MEDS: VALPROIC ACID 250 MG/5 ML UDC PO SCH ×2 (10:16→13:56)
[2022-10-08] MEDS: OLANZAPINE 5 MG TABLET PO SCH ×2 (10:16→13:56)
[2022-10-08] MEDS: MEMANTINE HCL 5 MG TABLET PO SCH (10:17)
[2022-10-08] MEDS: BENZONATATE 100 MG CAPSULE PO SCH ×2 (10:18→13:56)
[2022-10-08] MEDS: METFORMIN 500 MG TABLET PO SCH (10:18)
[2022-10-08] MEDS: CHOLECALCIFEROL (VITAMIN D 3) 400 UNIT TABLET PO SCH (10:18)
[2022-10-08] MEDS: SENNOSIDES 8.6 MG TABLET PO SCH (10:18)
[2022-10-08] MEDS: BLOOD SUGAR DIAGNOSTIC 1 EACH STRIP IN SCH ×2 (10:19→12:54)
[2022-10-08] MEDS: ASPIRIN EC 81 MG TABLET.DR PO SCH (10:19)
[2022-10-08] MEDS: MULTIVITAMINS,THERAGRAN 1 UDTAB TABLET PO SCH (10:19)
[2022-10-08] MEDS: TAMSULOSIN 0.4 MG CAP.SR.24H PO SCH (10:19)
[2022-10-08] MEDS: FAMOTIDINE (20 MG) 20 MG TABLET PO SCH (10:19)
[2022-10-08] MEDS: FINASTERIDE (5 MG) 5 MG TABLET PO SCH (10:19)
[2022-10-08] MEDS: APIXABAN 5 MG TABLET PO SCH (10:21)
[2022-10-08] MEDS: DOCUSATE SODIUM LIQ 100 MG/10 ML UDC PO SCH (10:32)
[2022-10-08] MEDS ORDERED: CEFE2FRO IV (14:06)
--- NOTE | 2022-10-08 15:51 | NUR ---
rn note spoke with CHARLENE Watson from [facility] for anayeli.
--- NOTE | 2022-10-08 17:13 | NUR ---
RN NOTE PT D/C TO SNF, D/C INSTRUCTIONS GIVEN TO 2 AMBULANCE PERSONNEL. IV ACCESS KEPT IN PLACE, PT TO CONTINUE IV ABX CEFEPIME FOR [address] C[address] PL[address] DRAINING WELL. V/S STABLE. PT IN O2 VIA NC @2L WITH O2 SAT 96. NOT IN DISTRESS.
== END 2022-10-08 16:52 | DRG 137 ==
LOC: ER 23:52 → TELE 10-01 08:07 → TELE1 10-02 10:50 → MEDSG1 10-02 11:15
PROVIDERS: ADMIT Nurse Practitioner Acute Care; ATTEND Nurse Practitioner Acute Care
PROC: 05HA33Z Insertion of Infusion Device into Left Brachial Vein, Percutaneous Approach (ICD-10-PCS; principal; 2022-10-01)
DX: U07.1 COVID-19 (principal); J69.0 Pneumonitis due to inhalation of food and vomit; G93.40 Encephalopathy, unspecified; J15.6 Pneumonia due to other Gram-negative bacteria; I21.A1 Myocardial infarction type 2; D68.59 Other primary thrombophilia; E87.20 Acidosis, unspecified; E87.1 Hypo-osmolality and hyponatremia; G30.9 Alzheimer's disease, unspecified; F02.83 Dementia in other diseases classified elsewhere, unspecified severity, with mood disturbance; J15.9 Unspecified bacterial pneumonia; Z20.822 Contact with and (suspected) exposure to COVID-19; Z66 Do not resuscitate; G40.909 Epilepsy, unspecified, not intractable, without status epilepticus; I10 Essential (primary) hypertension; I25.2 Old myocardial infarction; N40.0 Benign prostatic hyperplasia without lower urinary tract symptoms; K21.9 Gastro-esophageal reflux disease without esophagitis; F32.A Depression, unspecified; E78.5 Hyperlipidemia, unspecified; E87.6 Hypokalemia; Z74.09 Other reduced mobility; D72.819 Decreased white blood cell count, unspecified; E11.9 Type 2 diabetes mellitus without complications; J44.0 Chronic obstructive pulmonary disease with (acute) lower respiratory infection; R13.10 Dysphagia, unspecified; F29 Unspecified psychosis not due to a substance or known physiological condition; Z79.51 Long term (current) use of inhaled steroids; Z79.4 Long term (current) use of insulin; Z79.82 Long term (current) use of aspirin; Z79.84 Long term (current) use of oral hypoglycemic drugs; Z79.899 Other long term (current) drug therapy; Z79.01 Long term (current) use of anticoagulants; F25.0 Schizoaffective disorder, bipolar type; Y95 Nosocomial condition; Z74.01 Bed confinement status; R09.89 Other specified symptoms and signs involving the circulatory and respiratory systems; R09.02 Hypoxemia; R06.03 Acute respiratory distress
CPT/HCPCS: 36410; 36415; 71045-TC; 80048-TC; 80053-TC; 80076-TC; 80164-TC; 80202-TC; 81001; 82728-TC; 82962-TC; 83605-TC; 83735-TC; 83880; 84100-TC; 84155; 84165; 84439-TC; 84443-TC; 84484-TC; 85025-TC; 85730-TC; 86140-TC; 86803; 87040-TC; 87081-TC; 87806; 92526; 92611-TC; 93307-TC; 94799-TC; 97110-TC; 97112-TC; 97116-TC; 97530-TC; A4349; C9803; G0378; J0360; J0692; J1815; J1953; J2060; J2405; J2543; J3370; J3490; J7030; J7040; J7042; J7050; J7060; U0003

== ENCOUNTER 2023-03-22 22:01 | Inpatient (IN) | payer MEDICAID, MEDICARE ==
[~2023-03-22] VITALS: Ht 177.8 cm; Wt 72.6 kg
[~2023-03-22 22:01] MED LIST: ACET-868 PO; ACET650S11 RC; APIX5TAB PO; ASPI-1420 PO; ATOR40TA PO; BENZ-13 PO; CEFE2FRO IV; CHOL100043 PO; DIVA125C2 PO; DOCU-141 PO; FAMO20TA8 PO; FINA5TAB11 PO; INSU100V11 SQ; IPRA3AMP23 IH; LEVE500T9 PO; LOSA100T3 PO; MAGN400O6 PO; MEMA10TA PO; METF-440 PO; METO25TA20 PO; MULT-447 PO; OLAN2.5T3 PO; OLAN5TAB3 PO; SENN-261 PO; TAMS-12 PO; TRAZ-257 PO
--- NOTE | 2023-03-22 22:09 | NUR ---
CALLED [facility] AND SPOKE WITH CARLOS TO SEND OVER CLINICALS
--- NOTE | 2023-03-22 22:16 | NUR ---
Pedro torres in [facility] - 03/22/23 at 2227 by BRANDEE RT AT PT'S BEDSIDE FOR ABG
--- NOTE | 2023-03-22 22:27 | NUR ---
COVID SWAB COLLECTED, SENT TO LAB
[2023-03-22] MEDS ORDERED: LEVOFLOXACIN 750 MG /D5W 150ML 150 ML IV ONE ×2 (22:30→22:57)
--- NOTE | 2023-03-22 22:31 | NUR ---
RECIEVED FAX FROM [facility]
[2023-03-22 22:54] LABS: BASOPHILS % (AUTO) 0.2 % (0.0-2.0); EOSINOPHILS % (AUTO) 0.4 % (0.0-6.0); HEMATOCRIT 37 % (39-51); HEMOGLOBIN 12.1 g/dL (13.5-17.5); LYMPHOCYTES # (AUTO) 0.9 K/uL (0.8-4.8); LYMPHOCYTES % (AUTO) 10.2 % (20.0-44.0); MEAN CORPUSCULAR HGB CONC 32 g/dl (31.0-36.0); MEAN CORPUSCULAR VOLUME 77 fL (80-96); MONOCYTES # (AUTO) 0.7 K/uL (0.1-1.30); MONOCYTES % (AUTO) 8.3 % (2.0-12.0); NEUTROPHILS # (AUTO) 7.3 K/uL (1.8-8.9); NEUTROPHILS % (AUTO) 80.9 % (43.0-81.0); PLATELET COUNT (AUTO) 162 K/uL (150-450); RED BLOOD CELL COUNT(AUTO) 4.86 MIL/uL (4.5-6.0)
[2023-03-22 23:17] LABS: ABG BASE EXCESS 3.6 mmol/L; ABG PCO2 40.2 mmHg (35.0-45.0); ABG PH 7.457 (7.350-7.450); ABG PO2 65.3 mmHg (75.0-100.0); COHb 0.9 % (0.5-1.5); MetHb 0.4 % (0.0-1.5); SITE, ABG Right Radial; VENT MODE, BG Nasal cannula
[2023-03-22 23:17] LABS: CALCIUM, SERUM 8.8 mg/dL (8.5-10.1); CARBON DIOXIDE 30 mmol/L (21-32); CHLORIDE 101 mmol/L (98-107); CREATININE 1.3 mg/dL (0.6-1.3); GLUCOSE 127 mg/dL (74-106); POTASSIUM 3.7 mmol/L (3.5-5.1); SODIUM SERUM 138 mmol/L (136-145); UREA NITROGEN, BLOOD 24 mg/dL (7-18)
--- NOTE | 2023-03-22 23:17 | NUR ---
RT AT PT'S BEDSIDE FOR ABG
--- NOTE | 2023-03-22 23:18 | NUR ---
INSERTED 16FR WITH URINE OUTPUT
[2023-03-22] MEDS ORDERED: IPRATROPIUM NEB FS 0.5 MG/2.5 ML AMPUL.NEB ONE (23:21)
[2023-03-22] MEDS ORDERED: ALBUTEROL FS 2.5 MG/3 ML VIAL.NEB ONE (23:21)
[2023-03-22] MEDS ORDERED: ALBUTEROL FS 2.5 MG/3 ML VIAL.NEB NEB ONE (23:30)
[2023-03-22] MEDS ORDERED: IPRATROPIUM NEB FS 0.5 MG/2.5 ML AMPUL.NEB NEB ONE (23:30)
[2023-03-22 23:32] LABS: ALANINE AMINOTRANSFERASE 23 U/L (12-78); ALBUMIN 2.9 g/dL (3.4-5.0); ALKALINE PHOSPHATASE 93 U/L (46-116); ASPARTATE AMINOTRANSFERASE 21 U/L (15-37); BILIRUBIN,DIRECT 0.2 mg/dL (0.0-0.2); BILIRUBIN,TOTAL 0.8 mg/dL (0.2-1.0); TOTAL PROTEIN, SERUM 8.2 g/dL (6.4-8.2)
--- NOTE | 2023-03-22 23:44 | NUR ---
PT ARRIVED ON NC AT 6L A/O X2, FROM SNF AUDIABLE RONCHI NOTED ON ASSESSMENT, LOW GRADE FEVER OF 99.2 SEPSIS WORK UP INITATED. CULTRES AND BLOOD LABS DRAWN. CONNECTED TO BEDSIDE MONITOR AND PLACED IN BED IN [facility].
--- NOTE | 2023-03-22 23:48 | NUR ---
RT AT PT'S BEDSIDE FOR BREATHING TX
[2023-03-22 23:50] LABS: BILIRUBIN,URINE NEGATIVE (NEGATIVE); COLOR,URINE YELLOW (YELLOW); LEUKOCYTE ESTERASE ,URINE NEGATIVE (NEGATIVE); NITRITE, URINE NEGATIVE (NEGATIVE); PH,URINE 7.5 (5.0-8.0); PROTEIN,URINE 2+ mg/dl (NEGATIVE); UGLUCOSE NEGATIVE (NEGATIVE)
[2023-03-23] MEDS ORDERED: HALOPERIDOL LACTATE INJ 5 MG/ML VIAL IM ONE
[2023-03-23] MEDS ORDERED: methylPREDNISolone SOD SUCC 125 MG/2ML VIAL IV ONE
[2023-03-23 00:02] LABS: BACTERIA,URINE Few /HPF (None Seen); MUCUS,URINE Moderate /LPF (None Seen); RBC,URINE NONE SEEN /HPF (0-2); SQUAMOUS EPITHELIAL CELL,UR None Seen /HPF (None Seen); WBC,URINE NONE SEEN /HPF (0-3)
[2023-03-23] MEDS ORDERED: HALOPERIDOL LACTATE INJ 5 MG/ML VIAL ONE (00:08)
[2023-03-23] MEDS ORDERED: methylPREDNISolone SOD SUCC 125 MG/2ML VIAL ONE (00:08)
[2023-03-23] MEDS ORDERED: ASPIRIN 300 MG/SUPP.RECT RC ONE ×2 (00:08)
--- NOTE | 2023-03-23 00:18 | NUR ---
MOVE SHEET SUBMITTED
--- NOTE | 2023-03-23 00:33 | NUR ---
MEDICAL DELIVERY TECHNICIAN AT PT'S BEDSIDE
--- NOTE | 2023-03-23 00:46 | NUR ---
[facility] PAGED
--- NOTE | 2023-03-23 01:57 | NUR ---
TROPONIN 238
[2023-03-23] MEDS ORDERED: ENOXAPARIN SODIUM 80 MG/0.8 ML DISP.SYRIN SQ ONE ×2 (02:00→02:03)
[2023-03-23] MEDS ORDERED: ONDANSETRON HCL/PF 4 MG/2 ML VIAL IVP PRN (02:00)
[2023-03-23] MEDS ORDERED: ACETAMINOPHEN 325 MG TABLET PO PRN (02:00)
[2023-03-23] MEDS ORDERED: DEXTROSE 50%-WATER 50 ML DISP.SYRIN IV PRN (02:00)
[2023-03-23] MEDS ORDERED: ALBUTEROL FS 2.5 MG/0.5 ML VIAL.NEB NEB PRN (02:00)
[2023-03-23] MEDS ORDERED: MORPHINE SULFATE INJ 2 MG/ML DISP.SYRIN IV PRN (02:00)
--- NOTE | 2023-03-23 02:51 | NUR ---
REPORT GIVEN TO RAYMOND OGDEN RN FOR EFFIE
--- NOTE | 2023-03-23 03:44 | NUR ---
PT TRANSFERRED TO 112-2 VIA ACLS PROTOCOL. VSS.
[2023-03-23] MEDS ORDERED: CEFEPIME 2 GM in IV D5W 100 ML IV ONE (04:00)
[2023-03-23 04:31] VITALS: BP 86/56
--- NOTE | 2023-03-23 05:21 | NUR ---
CLOSING NOTES: RECEIVED FROM ER UNRESPONSIVE TO NAME BEING CALLED / DEEP RUBBING THE CHEST /PUPILS 2 IN SIZE NONREACTIVE /ARMS AND LEGS FLACCID B/P RIGHT ARM 86/50 HR 75 RESP 18 02 5 LITERS SATS 95% TEXTED MD DA SILVA AND MADE HIM AWARE HE RECEIVED THE TEXT AND RESPONDED WITH "OK" READING THE ER NOTES HE WAS UNRESPONSIVE AT ONE POINT AND NONRESPONSIVE TO DEEP CHEST RUBBING...ER NURSE STATED WHEN HE IS AWAKE HIS SPEECH IS GARBLED PADDED THE SIDE RAILS D/T HX OF SEIZURES SKIN INTACT CALLED THE STRIKE OFF MACHINE OPERATOR TO BRING ME THE ORDERED IVPB ATB THAT IS ORDERED FOR 4AM LEONARDO CATH IN PLACE HX BPH SIDERAILS UP BEDALARM ON
[2023-03-23] MEDS ORDERED: CEFEPIME 1 GM VIAL ONE (05:35)
[2023-03-23] MEDS ORDERED: IPRATROPIUM/ALBUTEROL INHALER IH SCH (06:00)
--- NOTE | 2023-03-23 06:13 | NUR ---
BECAUSE OF PATIENT BEING A DIAB AND IN THIS UNRESPONSIVE STATE BLOOD SUGAR CHECKED 200
[2023-03-23] MEDS ORDERED: IPRATROPIUM NEB FS 0.5 MG/2.5 ML AMPUL.NEB NEB PRN (07:00)
[2023-03-23] MEDS: ALBUTEROL FS 2.5 MG/0.5 ML VIAL.NEB HHN SCH ×3 (07:35→19:21)
[2023-03-23] MEDS: BLOOD SUGAR DIAGNOSTIC 1 EACH STRIP VI SCH ×4 (07:58→21:40)
[2023-03-23 08:00] VITALS: BP 100/67
[2023-03-23] MEDS: DIVALPROEX SODIUM 125 MG CAP.SPRINK PO SCH ×3 (08:00→16:19)
[2023-03-23] MEDS: LOSARTAN POTASSIUM 50 MG TABLET PO SCH (09:00)
[2023-03-23] MEDS: METOPROLOL TARTRATE 25 MG TABLET PO SCH ×2 (09:00→16:19)
[2023-03-23] MEDS: MEMANTINE HCL 5 MG TABLET PO SCH ×2 (09:00→16:19)
[2023-03-23] MEDS: FINASTERIDE (5 MG) 5 MG TABLET PO SCH (09:00)
[2023-03-23] MEDS: LEVETIRACETAM (250 MG) 250 MG TABLET PO SCH ×2 (09:00→16:19)
[2023-03-23] MEDS: DOCUSATE SODIUM 100 MG CAPSULE PO SCH ×2 (09:00→16:19)
[2023-03-23] MEDS: FAMOTIDINE (20 MG) 20 MG TABLET PO SCH (09:00)
[2023-03-23] MEDS: TAMSULOSIN 0.4 MG CAP.SR.24H PO SCH (09:00)
[2023-03-23] MEDS: MULTIVIT W/MINERALS 1 TAB TABLET PO SCH (09:00)
[2023-03-23] MEDS: OLANZAPINE 5 MG TABLET PO SCH ×4 (09:00→18:44)
[2023-03-23] MEDS: BENZONATATE 100 MG CAPSULE PO SCH ×3 (09:00→16:19)
[2023-03-23] MEDS ORDERED: HEPARIN SODIUM, PORCINE 5000 UNITS/1 ML VIAL SQ SCH (09:00)
[2023-03-23] MEDS: CHOLECALCIFEROL 1,000 UNIT TABLET (VIT D3) PO SCH ×3 (09:00→16:19)
[2023-03-23] MEDS: ASPIRIN EC 81 MG TABLET.DR PO SCH (09:00)
[2023-03-23] MEDS: INSULIN REGULAR, HUMAN 100 UNIT/ML 3 ML VIAL SQ PRN ×3 (09:08→18:17)
--- NOTE | 2023-03-23 09:30 | NUR ---
SINCE I TOOK THE SHIFT PATIENT IS SLEEPING AND UNRESPONSIVE, BUT VITAL SIGNS WITHIN NORMAL, BLOOD SUGAR 211. ALL PO MEDS HELD BECAUSE PATIENT IS NOT ABUSABLE TO THE CHEST RUB. WILL LET THE DOTOR KNOW NOW. PER DATA CLERK NURSE PATIENT WAS GIVEN HALDOL 10 MG IN THE ER, SO MAYBE THAT IS THE REASON THAT PATIENT IS UNABLE TO RESPONSE AND IS IN A DEEP SLEEP.
[2023-03-23] MEDS ORDERED: BENZ1TAB7 PO (10:13)
[2023-03-23] MEDS ORDERED: LACT1CAP69 PO (10:13)
[2023-03-23] MEDS ORDERED: VALP250S4 PO (10:13)
[2023-03-23] MEDS ORDERED: FLUO40CA49 PO (10:14)
[2023-03-23] MEDS ORDERED: PANT40TA2 PO (10:14)
[2023-03-23] MEDS ORDERED: CLON0.1T PO (10:14)
[2023-03-23] MEDS ORDERED: LORA-259 PO (10:14)
[2023-03-23] MEDS ORDERED: DONE5TAB34 PO (10:14)
[2023-03-23] MEDS ORDERED: FERR325T23 PO (10:14)
[2023-03-23] MEDS ORDERED: LACT10SO3 PO (10:14)
[2023-03-23 12:00] VITALS: BP 101/65
[2023-03-23] MEDS: IPRATROPIUM NEB FS 0.5 MG/2.5 ML AMPUL.NEB NEB SCH ×2 (13:30→19:21)
[2023-03-23] MEDS: APIXABAN 5 MG TABLET PO SCH ×2 (14:14→21:38)
[2023-03-23 16:00] VITALS: BP 103/70
[2023-03-23] MEDS: CEFEPIME 2 GM in IV D5W 100 ML IV SCH (17:55)
--- NOTE | 2023-03-23 19:00 | NUR ---
RN CLOSING NOTE PATIENT ALERT ORIENTED TIMES 1-2,ON NC 5 LITERS. LEONARDO DRAINING CORNELIA COLOR URINE, PATIENT ON ABX. PATIENT WAS SLEEPING THE WHOLE DAY ALL PO MEDICATION HELD, DR. GRIMALDO WAS NOTIFIED. PATIENT WOKE UP AROUND 1845, HAD DINNER, QUALITY CONTROL LAB TECH FEED THE PATIENT. ALREADY INDORSED THE PATIENT TO THE [place] FLOOR REFINISHER NURSE FOR EFFIE.
[2023-03-23 20:00] VITALS: BP 107/63
[2023-03-23] MEDS: TRAZODONE 50 MG TABLET PO SCH (21:38)
[2023-03-23] MEDS: ATORVASTATIN 40 MG TABLET PO SCH (21:38)
[2023-03-23] MEDS: OLANZAPINE 2.5 MG TABLET PO SCH (21:38)
[2023-03-23] MEDS: *INSULIN REGULAR(HUMULIN R)HUM 100 UNIT/ML VIAL SQ PRN (21:46)
[2023-03-24] VITALS: BP 108/69
[2023-03-24] MEDS: ALBUTEROL FS 2.5 MG/0.5 ML VIAL.NEB HHN SCH ×4 (00:56→20:19)
[2023-03-24] MEDS: IPRATROPIUM NEB FS 0.5 MG/2.5 ML AMPUL.NEB NEB SCH ×4 (00:56→20:19)
[2023-03-24 04:00] VITALS: BP 92/60
[2023-03-24 05:42] LABS: HEMATOCRIT 34 % (39-51); HEMOGLOBIN 11.1 g/dL (13.5-17.5); LYMPHOCYTES % (AUTO) 3.7 % (20.0-44.0); MEAN CORPUSCULAR HGB CONC 32 g/dl (31.0-36.0); MEAN CORPUSCULAR VOLUME 77 fL (80-96); MONOCYTES % (AUTO) 5.3 % (2.0-12.0); PLATELET COUNT (AUTO) 173 K/uL (150-450); RED BLOOD CELL COUNT(AUTO) 4.44 MIL/uL (4.5-6.0); WHITE BLOOD COUNT (AUTO) 10.7 K/uL (4.3-11.0)
[2023-03-24 05:43] LABS: LYMPHOCYTES # (AUTO) 0.4 K/uL (0.8-4.8); MONOCYTES # (AUTO) 0.6 K/uL (0.1-1.30); NEUTROPHILS # (AUTO) 9.7 K/uL (1.8-8.9)
[2023-03-24] MEDS: CEFEPIME 2 GM in IV D5W 100 ML IV SCH ×2 (06:00→19:18)
[2023-03-24 06:24] LABS: ALBUMIN 2.5 g/dL (3.4-5.0); BILIRUBIN,TOTAL 0.4 mg/dL (0.2-1.0); CALCIUM, SERUM 8.8 mg/dL (8.5-10.1); CREATININE 1.3 mg/dL (0.6-1.3); MAGNESIUM 2.1 mg/dL (1.8-2.4); PHOSPHORUS 4.7 mg/dL (2.5-4.9); POTASSIUM 3.9 mmol/L (3.5-5.1); TOTAL PROTEIN, SERUM 7.6 g/dL (6.4-8.2)
--- NOTE | 2023-03-24 06:44 | NUR ---
INVESTMENT SALES ASSISTANT CLOSING NOTE PT IS RESTING IN BED, AWAKE, A&O X1-2, BREATHING EVEN AND UNLABORED, O2 VIA NC, LFA 20G, C/D/I, LEONARDO PATENT DRAINING CLEAR YELLOW URINE, ALL DUE MEDS GIVEN PER MD ORDERS, TOLERATED WELL, ALL BASIC NEEDS MET AND ANTICIPATED, WILL CONTINUE TO MONITOR
--- NOTE | 2023-03-24 07:00 | NUR ---
BREAKDOWN WORKER OPENING NOTE PATIENT A/A/OX3 02 5L N/C SATURATION 96%, NO RESPIRATORY DISTRESS NOTED, HOB ELEVATED. IV ACCESS LFA #20 INTACT. ON TELEMETRY SR, DENIES CHEST PAIN, KAREN SOB. F/C DRAINING CLEAR YELLOW URINE. SAFETY MEASURES IN PLACE, BED LOCKED TO THE LOWEST POSITION, SIDE RAILS UP X3. CALL LIGHT AND TABLE WITHIN REACH. CONT. TO MONITOR.
[2023-03-24 08:00] VITALS: BP 110/64
[2023-03-24] MEDS: *INSULIN REGULAR(HUMULIN R)HUM 100 UNIT/ML VIAL SQ PRN ×4 (08:04→21:47)
[2023-03-24] MEDS: LEVETIRACETAM (250 MG) 250 MG TABLET PO SCH ×2 (08:28→17:15)
[2023-03-24] MEDS: TAMSULOSIN 0.4 MG CAP.SR.24H PO SCH (08:28)
[2023-03-24] MEDS: FAMOTIDINE (20 MG) 20 MG TABLET PO SCH (08:28)
[2023-03-24] MEDS: CHOLECALCIFEROL 1,000 UNIT TABLET (VIT D3) PO SCH ×3 (08:28→17:15)
[2023-03-24] MEDS: MEMANTINE HCL 5 MG TABLET PO SCH ×2 (08:28→17:16)
[2023-03-24] MEDS: MULTIVIT W/MINERALS 1 TAB TABLET PO SCH (08:28)
[2023-03-24] MEDS: FINASTERIDE (5 MG) 5 MG TABLET PO SCH (08:28)
[2023-03-24] MEDS: BENZONATATE 100 MG CAPSULE PO SCH ×3 (08:28→17:15)
[2023-03-24] MEDS: DIVALPROEX SODIUM 125 MG CAP.SPRINK PO SCH ×3 (08:30→17:14)
[2023-03-24] MEDS: DOCUSATE SODIUM 100 MG CAPSULE PO SCH ×2 (08:30→17:15)
[2023-03-24] MEDS: ASPIRIN EC 81 MG TABLET.DR PO SCH (08:31)
[2023-03-24] MEDS: APIXABAN 5 MG TABLET PO SCH ×2 (08:33→17:17)
[2023-03-24] MEDS: METOPROLOL TARTRATE 25 MG TABLET PO SCH ×2 (08:43→17:00)
[2023-03-24] MEDS: LOSARTAN POTASSIUM 50 MG TABLET PO SCH (08:44)
[2023-03-24 10:09] LABS: THYROID STIMULATING HORMONE 1.341 uIU/mL (0.358-3.74)
[2023-03-24] MEDS: BLOOD SUGAR DIAGNOSTIC 1 EACH STRIP VI SCH ×4 (11:17→21:45)
[2023-03-24 12:00] VITALS: BP 95/52
--- NOTE | 2023-03-24 12:19 | NUR ---
FILM OR VIDEOTAPE EDITOR NOTE THE LAB CALLED ME (SOFÍA) CRITICAL TROPONIN LEVEL (109). I WILL CALL TO JASMIN RAMIREZ WITH RESULTS.
[2023-03-24] MEDS: OLANZAPINE 5 MG TABLET PO SCH ×2 (13:10→17:14)
[2023-03-24 16:00] VITALS: BP 105/65
--- NOTE | 2023-03-24 17:36 | NUR ---
PRESS OPERATOR PRINTING NOTE LOPRESSOR HELD PULSE 58
--- NOTE | 2023-03-24 18:25 | NUR ---
OFFSHORE WIND OPERATIONS MANAGER NOTE PATIENT AGITATED AND ATTEMPTING TO GET OUT OF BED, PULLING OXYGEN OFF, PULLING LEONARDO CATHETER. DR. ESTES ORDERED TO GIVE HALDOL 10MG IM X1, CONT. WITH SAME MEDS AND PSYCH CONSULT. CHARGE NURSE SOON GAOT THE ORDER.
[2023-03-24] MEDS ORDERED: HALOPERIDOL 5 MG TABLET PO SCH (18:30)
--- NOTE | 2023-03-24 18:52 | NUR ---
QUARRY EXTRACTION WORKER NOTE HALDOL 10MG IM ADMINISTERED DIRECTED BY . PATIENT ASSISTED BY ANOTHER NURSE TOLERATED WELL.
[2023-03-24] MEDS ORDERED: HALOPERIDOL LACTATE INJ 5 MG/ML VIAL IM ONE (19:00)
--- NOTE | 2023-03-24 19:00 | NUR ---
MEDICATION AIDE CLOSING NOTE PATIENT IS AWAKE, CALM, DENIES PAIN. 02 3L N/C NO S/S OF RESPIRATORY DISTRESS NOTED. HOB ELEVATED. BILATERAL SOFT WRIST RESTRAINTS IN PLACE, DR. ESTES ORDERED TODAY ALSO DOCTOR MEERA ORDERED DNR STATUS IN THIS PATIENT. ORDER COSIGNED BY RN. SULLIVAN WAS EFFECTIVE. SAFETY MEASURES IN PLACE, BED LOCKED TO THE LOWEST POSITION, CALL LIGHT WITHIN REACH.I WILL ENDOESE TO THE FOLLOWING NURSE.
--- NOTE | 2023-03-24 19:45 | NUR ---
RN OPENING NOTES: RECEIVED PATIENT IN BED, AWAKE, ALERT/ORIENTED X2 WITH CONFUSION AND VERBALLY RESPONSIVE. ON O2 AT 3L/MIN VIA N/C AND PT TOLERATED WELL. HOB ELEVATED. IV ACCESS LFA #20 INTACT AND PATENT. NO S/S OF INFILTRATIONS. NO C/O PAIN OR DISCOMFORT. NO ACUTE DISTRESS. F/C IN PLACE. DRAINING BY GRAVITY. NOTED CLEAR YELLOW URINE. BILATERAL SOFT RESTRAINTS ON. ALL SAFETY MEASURES IN PLACE, BED IN LOWEST POSITION AND LOCKED. SIDE RAILS UP X3. PLACE CALL LIGHT WITHIN REACH. WILL CONTINUE TO MONITOR.
[2023-03-24 20:00] VITALS: BP 95/60
--- NOTE | 2023-03-24 21:31 | NUR ---
RN NOTES: CALLED SISTER REZA [phone] FOR UPDATES, LEFT MESSAGE. WILL TRY AGAIN
[2023-03-24] MEDS: TRAZODONE 50 MG TABLET PO SCH (21:38)
[2023-03-24] MEDS: MUPIROCIN OINT 2% 22 GM TUBE TP SCH (21:38)
[2023-03-24] MEDS: OLANZAPINE 2.5 MG TABLET PO SCH (21:38)
[2023-03-24] MEDS: ATORVASTATIN 40 MG TABLET PO SCH (21:38)
[2023-03-25] VITALS: BP 136/84
--- NOTE | 2023-03-25 00:30 | NUR ---
RN NOTES: PT'S SISTER CALLED BACK, REZA [phone]. SHE MENTIONED, WHILE PT WAS AT SNF, HE WAS ON PUREED DIET WITH NECTAR THICK LIQUID. BECAUSE OF ASPIRATION PRECAUTION. PT IS ON REGULAR DIET NOW. REQUESTED FOR SWALLOW EVAL. AND AFTER SWALLOW EVAL, IF PT ID NOT ABLE TO PASS, CONSIDER GTUBE FEEDING. NOTIFIED ERIKA FORD. HE AGREED. NOTED AND CARRIED OUT. SISTER WANTS THE MORNING NURSE TO CALL HER AFTER SWALLOW EVAL. WILL ENDORSE TO MORNING SHIFT NURSE.
[2023-03-25] MEDS: ALBUTEROL FS 2.5 MG/0.5 ML VIAL.NEB HHN SCH ×4 (01:47→19:52)
[2023-03-25] MEDS: IPRATROPIUM NEB FS 0.5 MG/2.5 ML AMPUL.NEB NEB SCH ×4 (01:47→19:52)
[2023-03-25 04:00] VITALS: BP 139/84
[2023-03-25] MEDS: CEFEPIME 2 GM in IV D5W 100 ML IV SCH ×2 (05:24→18:17)
--- NOTE | 2023-03-25 06:46 | NUR ---
RN CLOSING NOTES: PATIENT IN BED, AWAKE, ALERT/ORIENTED X2 WITH CONFUSION AND VERBALLY RESPONSIVE. ON O2 AT 3L/MIN VIA N/C AND PT TOLERATED WELL. O2 SAT 95%. HOB ELEVATED. IV ACCESS LFA #20 INTACT AND PATENT. NO S/S OF INFILTRATIONS. NO C/O PAIN OR DISCOMFORT. NO ACUTE DISTRESS. F/C IN PLACE. DRAINING BY GRAVITY. NOTED CLEAR YELLOW URINE. BILATERAL SOFT RESTRAINTS ON. RELEASED Q 2 HOURS TO CHECK CIRCULATION. ALL SAFETY MEASURES IN PLACE, BED IN LOWEST POSITION AND LOCKED. SIDE RAILS UP X3. PLACE CALL LIGHT WITHIN REACH. WILL ENDORSE TO MORNING SHIFT NURSE.
--- NOTE | 2023-03-25 07:35 | NUR ---
MOTOR VEHICLE ASSEMBLER OPENING NOTE (MELVI DAY SHIFT) PATIENT IS ASLEEP, EASILY AROUSED, AND ORIENTED X 3 WITH CONFUSION. 02. ON 3 L N/C SATURATION 100%, NO RESPIRATORY DISTRESS NOTED, HOB ELEVATED. IV ACCESS LFA #20 INTACT. ON TELEMETRY SR, DENIES CHEST PAIN, KAREN SOB. F/C DRAINING CLEAR YELLOW URINE. SAFETY MEASURES IN PLACE, BED LOCKED TO THE LOWEST POSITION, SIDE RAILS UP X 3 AND PADDED FOR SEIZURE PRECAUTIONS. bILATERAL WRIST RESTRAINTS ON FOR SAFETY FROM PULLING OUT LINES AND TRYING TO GET UP OOB WITHOUT CALLING FOR ASSISTANCE. CALL LIGHT AND TABLE WITHIN REACH. WILL CONTINUE TO CARE FOR AND TO MONITOR PATIENT PER MD'S POC.
[2023-03-25 08:00] VITALS: BP 158/91
[2023-03-25] MEDS: INSULIN REGULAR, HUMAN 100 UNIT/ML 3 ML VIAL SQ PRN ×3 (11:09→18:16)
[2023-03-25] MEDS: BLOOD SUGAR DIAGNOSTIC 1 EACH STRIP VI SCH ×4 (11:09→21:17)
[2023-03-25] MEDS: DIVALPROEX SODIUM 125 MG CAP.SPRINK PO SCH ×3 (11:10→17:16)
[2023-03-25] MEDS: DOCUSATE SODIUM 100 MG CAPSULE PO SCH ×2 (11:11→17:16)
[2023-03-25] MEDS: ASPIRIN EC 81 MG TABLET.DR PO SCH (11:11)
[2023-03-25] MEDS: LOSARTAN POTASSIUM 50 MG TABLET PO SCH (11:13)
[2023-03-25] MEDS: APIXABAN 5 MG TABLET PO SCH ×2 (11:14→17:20)
[2023-03-25] MEDS: ATORVASTATIN 40 MG TABLET PO SCH (11:15)
[2023-03-25] MEDS: LEVETIRACETAM (250 MG) 250 MG TABLET PO SCH ×2 (11:15→17:20)
[2023-03-25] MEDS: METOPROLOL TARTRATE 25 MG TABLET PO SCH ×2 (11:16→17:22)
[2023-03-25] MEDS: CHOLECALCIFEROL 1,000 UNIT TABLET (VIT D3) PO SCH ×3 (11:18→17:23)
[2023-03-25] MEDS: FAMOTIDINE (20 MG) 20 MG TABLET PO SCH (11:18)
[2023-03-25] MEDS: MEMANTINE HCL 5 MG TABLET PO SCH ×2 (11:18→17:23)
[2023-03-25] MEDS: BENZONATATE 100 MG CAPSULE PO SCH ×3 (11:18→17:23)
[2023-03-25] MEDS: MULTIVIT W/MINERALS 1 TAB TABLET PO SCH (11:18)
[2023-03-25] MEDS: FINASTERIDE (5 MG) 5 MG TABLET PO SCH (11:18)
[2023-03-25] MEDS: OLANZAPINE 5 MG TABLET PO SCH ×3 (11:23→17:23)
[2023-03-25] MEDS: TAMSULOSIN 0.4 MG CAP.SR.24H PO SCH (11:23)
[2023-03-25] MEDS: MUPIROCIN OINT 2% 22 GM TUBE TP SCH ×2 (11:25→23:03)
[2023-03-25 12:00] VITALS: BP 137/77
[2023-03-25 15:03] LABS: BASOPHILS % (AUTO) 0.1 % (0.0-2.0); HEMATOCRIT 35 % (39-51); HEMOGLOBIN 11.1 g/dL (13.5-17.5); LYMPHOCYTES # (AUTO) 0.5 K/uL (0.8-4.8); LYMPHOCYTES % (AUTO) 9.2 % (20.0-44.0); MEAN CORPUSCULAR HGB CONC 32 g/dl (31.0-36.0); MEAN CORPUSCULAR VOLUME 77 fL (80-96); MONOCYTES # (AUTO) 0.7 K/uL (0.1-1.30); MONOCYTES % (AUTO) 12.5 % (2.0-12.0); NEUTROPHILS # (AUTO) 4.3 K/uL (1.8-8.9); NEUTROPHILS % (AUTO) 76.2 % (43.0-81.0); PLATELET COUNT (AUTO) 231 K/uL (150-450); RED BLOOD CELL COUNT(AUTO) 4.48 MIL/uL (4.5-6.0); WHITE BLOOD COUNT (AUTO) 5.6 K/uL (4.3-11.0)
[2023-03-25 15:42] LABS: CALCIUM, SERUM 8.6 mg/dL (8.5-10.1); CREATININE 0.8 mg/dL (0.6-1.3)
[2023-03-25 16:00] VITALS: BP 135/85
--- NOTE | 2023-03-25 18:34 | NUR ---
ASSISTANT PROSECUTING ATTORNEY CLOSING NOTE (MELVI DAY SHIFT) PATIENT IS AWAKE, CALM, DENIES PAIN. 02 3L N/C NO S/S OF RESPIRATORY DISTRESS NOTED. HOB ELEVATED. BILATERAL SOFT WRIST RESTRAINTS IN PLACE, LEONARDO CATHETER REMOVED DUE TO PT'S DISCOMFORT. VITAL SIGNS STABLE THROUGHOUT THE DAY. SAFETY MEASURES IN PLACE, BED LOCKED TO THE LOWEST POSITION, CALL LIGHT WITHIN REACH. WILL ENDOESE TO THE CARE PROGRAM RESIDENT NURSE FOR anayeli.
[2023-03-25] MEDS: IV NS 0.9% 1,000 ML IV PRN (19:52)
[2023-03-25 20:00] VITALS: BP 153/83
--- NOTE | 2023-03-25 20:16 | NUR ---
RESTRAINTS Patient in bed, restless, confused. Redd soft wrist restraints in place, unable to dc as patients still attempted removing lines/tubings by himself. Will cont to monitor.
[2023-03-25] MEDS: *INSULIN REGULAR(HUMULIN R)HUM 100 UNIT/ML VIAL SQ PRN (21:17)
[2023-03-25] MEDS: TRAZODONE 50 MG TABLET PO SCH (21:20)
[2023-03-25] MEDS: OLANZAPINE 2.5 MG TABLET PO SCH (21:20)
--- NOTE | 2023-03-25 23:10 | NUR ---
INDICATION FOR BACTROBAN OINTMENT Bactroban ointment non administered. Indication unknown, patient no MRSA on test, no wound. Will endorse to oncoming RN to follow up if medication still needed.
[2023-03-26 00:31] VITALS: BP 150/78
[2023-03-26] MEDS: ALBUTEROL FS 2.5 MG/0.5 ML VIAL.NEB HHN SCH ×4 (01:48→19:53)
[2023-03-26] MEDS: IPRATROPIUM NEB FS 0.5 MG/2.5 ML AMPUL.NEB NEB SCH ×4 (01:49→19:53)
[2023-03-26 04:00] VITALS: BP 166/90
--- NOTE | 2023-03-26 06:33 | NUR ---
END OF SHIFT REPORT Patient in bed, Alert Oriented x1 to self only. Bilateral soft wrist restraints in place. Sinus rhythm in the potline monitor, HR 65. Oxygen sat high 100 in 2L NC. Patient slept most of the night. This morning restless, trying to get out of bed, dangles both legs off the bed, strong BUE/BLE extremities, LFA IV line dislodged. Multiple IV peripheral attempts unsuccessful, patient hard stick. IV abx due at 0600am unable to infuse as no IV access at this time. Notified Dr. Rodriguez with new order for MIDLINE cath insertion. Informed House sup CHARLENE Kern, as well as 1:1 sitter needed. Will endorse to oncoming RN.
--- NOTE | 2023-03-26 07:30 | NUR ---
TELE OPENING RN NOTES RECEIVED Patient in bed AWAKE, Alert Oriented x1 to self only. Bilateral soft wrist restraints in place. Sinus rhythm in the personnel monitor. ON 02 VIA NC, TOLERATING WELL, NO SOB NOTED, RESPIRATION EVEN AND UNLABORED. NO PIV NOTED. BILATERAL SOFT WRIST RESTRAINT NOTED, CHECK FOR SKIN AND CIRCULATION PER PROTOCOL. SAFETY MEASURES IN PLACED. CALL LIGHT WITHIN REACH. BED IN LOWEST POSITION. PLAN OF CARE CONTINUE.
[2023-03-26 07:46] LABS: BASOPHILS % (AUTO) 0.1 % (0.0-2.0); EOSINOPHILS % (AUTO) 3.6 % (0.0-6.0); HEMATOCRIT 37 % (39-51); HEMOGLOBIN 11.8 g/dL (13.5-17.5); LYMPHOCYTES # (AUTO) 0.8 K/uL (0.8-4.8); LYMPHOCYTES % (AUTO) 11.8 % (20.0-44.0); MEAN CORPUSCULAR HGB CONC 32 g/dl (31.0-36.0); MEAN CORPUSCULAR VOLUME 78 fL (80-96); MONOCYTES # (AUTO) 0.7 K/uL (0.1-1.30); MONOCYTES % (AUTO) 10.2 % (2.0-12.0); NEUTROPHILS # (AUTO) 5.2 K/uL (1.8-8.9); NEUTROPHILS % (AUTO) 74.3 % (43.0-81.0); PLATELET COUNT (AUTO) 256 K/uL (150-450); RED BLOOD CELL COUNT(AUTO) 4.81 MIL/uL (4.5-6.0); WHITE BLOOD COUNT (AUTO) 7.1 K/uL (4.3-11.0)
[2023-03-26] MEDS: BLOOD SUGAR DIAGNOSTIC 1 EACH STRIP VI SCH ×4 (07:50→22:34)
[2023-03-26 08:00] VITALS: BP 157/71
[2023-03-26 08:05] LABS: CALCIUM, SERUM 9.4 mg/dL (8.5-10.1); CREATININE 0.8 mg/dL (0.6-1.3); MAGNESIUM 2.1 mg/dL (1.8-2.4); PHOSPHORUS 2.4 mg/dL (2.5-4.9)
[2023-03-26] MEDS: FINASTERIDE (5 MG) 5 MG TABLET PO SCH (08:19)
[2023-03-26] MEDS: DOCUSATE SODIUM 100 MG CAPSULE PO SCH ×2 (08:19→16:17)
[2023-03-26] MEDS: CHOLECALCIFEROL 1,000 UNIT TABLET (VIT D3) PO SCH ×3 (08:19→16:17)
[2023-03-26] MEDS: ASPIRIN EC 81 MG TABLET.DR PO SCH (08:19)
[2023-03-26] MEDS: BENZONATATE 100 MG CAPSULE PO SCH ×3 (08:19→16:17)
[2023-03-26] MEDS: OLANZAPINE 5 MG TABLET PO SCH ×3 (08:19→16:17)
[2023-03-26] MEDS: MULTIVIT W/MINERALS 1 TAB TABLET PO SCH (08:19)
[2023-03-26] MEDS: FAMOTIDINE (20 MG) 20 MG TABLET PO SCH (08:19)
[2023-03-26] MEDS: TAMSULOSIN 0.4 MG CAP.SR.24H PO SCH (08:20)
[2023-03-26] MEDS: LEVETIRACETAM (250 MG) 250 MG TABLET PO SCH ×2 (08:20→16:17)
[2023-03-26] MEDS: DIVALPROEX SODIUM 125 MG CAP.SPRINK PO SCH ×3 (08:20→16:17)
[2023-03-26] MEDS: METOPROLOL TARTRATE 25 MG TABLET PO SCH ×2 (08:21→16:53)
[2023-03-26] MEDS: MEMANTINE HCL 5 MG TABLET PO SCH ×2 (08:21→16:17)
[2023-03-26] MEDS: LOSARTAN POTASSIUM 50 MG TABLET PO SCH (08:21)
[2023-03-26] MEDS: APIXABAN 5 MG TABLET PO SCH ×2 (08:23→16:18)
[2023-03-26] MEDS: MUPIROCIN OINT 2% 22 GM TUBE TP SCH (09:00)
--- NOTE | 2023-03-26 09:00 | NUR ---
NEW PERIPHERAL IV LINE INSERTED ON LEFT FOREAM GAUGE 20, NOTED PATENT AND INTACT, FLUSHES WELL, IV FLUIDS RESTARTED.
[2023-03-26] MEDS: CEFEPIME 2 GM in IV D5W 100 ML IV SCH ×2 (09:06→17:00)
[2023-03-26] MEDS: NEUTRA PHOS 1 POWD.PACKET PO SCH ×2 (10:27→17:00)
[2023-03-26] MEDS: INSULIN REGULAR, HUMAN 100 UNIT/ML 3 ML VIAL SQ PRN (11:33)
[2023-03-26 12:00] VITALS: BP 110/69
--- NOTE | 2023-03-26 12:00 | NUR ---
HELD INSULIN DUE TO PATIENT HAD A EPISODE OF HYPOGLYCEMIA THIS MORNING.
[2023-03-26 16:00] VITALS: BP 112/71
--- NOTE | 2023-03-26 18:15 | NUR ---
TELE CLOSING RN NOTES Patient in bed AWAKE, Alert Oriented x1 to self only. Sinus rhythm in the bus monitor. ON 02 VIA NC, TOLERATING WELL, NO SOB NOTED, RESPIRATION EVEN AND UNLABORED. LEFT FOREAM PIV NOTED PATENT AND INTACT, FLUSHES WELL, ON IV FLUIDS ORDERED. BILATERAL SOFT WRIST RESTRAINT NOTED, CHECK FOR SKIN AND CIRCULATION PER PROTOCOL. SAFETY MEASURES IN PLACED. CALL LIGHT WITHIN REACH. BED IN LOWEST POSITION. WILL ENDORSE TO NIGHT NURSE FOR EFFIE.
--- NOTE | 2023-03-26 18:39 | NUR ---
PATIENT'S SISTER AND DPOA WANT'S TO SPEAK WITH MD, INFORMED DR. ESTES AND GAVE PATIENT'S SISTER PHONE NUMBER.
--- NOTE | 2023-03-26 19:30 | NUR ---
noc rn opening Received patient in bed. a/ox1, with bilateral soft wrist restraints. no s/s of apparent distress on 1lpm of o2 via nc. denies pain. reading sr with 69 bpm. IV NS running @60mls/hr. safety in place-- bed in lowest, locked position, rails up X4, bed alarm in place. will continue with patient's plan of care.
[2023-03-26 20:00] VITALS: BP 131/77
[2023-03-26] MEDS: TRAZODONE 50 MG TABLET PO SCH (21:35)
[2023-03-26] MEDS: ATORVASTATIN 40 MG TABLET PO SCH (21:35)
[2023-03-26] MEDS: OLANZAPINE 2.5 MG TABLET PO SCH (21:35)
[2023-03-26] MEDS: *INSULIN REGULAR(HUMULIN R)HUM 100 UNIT/ML VIAL SQ PRN (22:35)
--- NOTE | 2023-03-26 22:52 | NUR ---
noc rn note Patient weaned off oxygen. saturating 97% on room air.
[2023-03-27] MEDS: ALBUTEROL FS 2.5 MG/0.5 ML VIAL.NEB HHN SCH ×3 (01:45→13:21)
[2023-03-27] MEDS: IPRATROPIUM NEB FS 0.5 MG/2.5 ML AMPUL.NEB NEB SCH ×3 (01:45→13:21)
[2023-03-27] MEDS: IV NS 0.9% 1,000 ML IV PRN (03:16)
[2023-03-27 05:00] VITALS: BP 151/81
--- NOTE | 2023-03-27 05:36 | NUR ---
noc rn note-pain management patient BP very high 180 sbp. Patient in pain. given morphine 2mg as ordered PRN. will re-assess.
[2023-03-27] MEDS: CEFEPIME 2 GM in IV D5W 100 ML IV SCH ×2 (06:02→17:13)
--- NOTE | 2023-03-27 06:30 | NUR ---
noc rn note blood sugar 114 Hg/dL. no coverage needed.
[2023-03-27] MEDS: BLOOD SUGAR DIAGNOSTIC 1 EACH STRIP VI SCH ×3 (06:36→16:55)
[2023-03-27] MEDS: INSULIN REGULAR, HUMAN 100 UNIT/ML 3 ML VIAL SQ PRN (06:36)
--- NOTE | 2023-03-27 06:44 | NUR ---
noc rn closing note Patient in bed a/ox1, with bilateral soft wrist restraints. no s/s of apparent distress on room air. denies pain. IV NS running 60mls/hr. now M/S status. all needs attended. all scheduled medications administered. safety kept in place the whole shift. will endorse to morning shift rn for continuity of care.
--- NOTE | 2023-03-27 07:00 | NUR ---
RN OPENING NOTE RECEIVED PATIENT IN ROOM A/O X1, VERBALLY RESPONSIVE, ON ROOM AIR, WITH NO SIGNS OF SOB, DISTRESS, WITH BILATERAL SOFT RESTRAINS IN PLACE, WILL BE REMOVED EVERY 15 MINUTES TO MONITOR SKIN AND CIRCULATION PER HOSPITALS POLICY. IV ON LFA MARTÍNEZ 20 WITH NS 60ML/HR. WITH CONDOM CATH, URINE YELLOW. ALL MEASURES IMPLEMENTED, HOB ELEVATED,, BED IN LOWEST AND LOCKED POSITION, TABLE AND CALL LIGHT WITHIN REACH
[2023-03-27 07:12] LABS: BASOPHILS % (AUTO) 0.1 % (0.0-2.0); EOSINOPHILS % (AUTO) 4.2 % (0.0-6.0); HEMATOCRIT 37 % (39-51); HEMOGLOBIN 11.6 g/dL (13.5-17.5); LYMPHOCYTES # (AUTO) 0.7 K/uL (0.8-4.8); LYMPHOCYTES % (AUTO) 11.8 % (20.0-44.0); MEAN CORPUSCULAR HGB CONC 32 g/dl (31.0-36.0); MEAN CORPUSCULAR VOLUME 77 fL (80-96); MONOCYTES # (AUTO) 0.8 K/uL (0.1-1.30); MONOCYTES % (AUTO) 12.2 % (2.0-12.0); NEUTROPHILS # (AUTO) 4.5 K/uL (1.8-8.9); NEUTROPHILS % (AUTO) 71.7 % (43.0-81.0); PLATELET COUNT (AUTO) 240 K/uL (150-450); RED BLOOD CELL COUNT(AUTO) 4.75 MIL/uL (4.5-6.0); WHITE BLOOD COUNT (AUTO) 6.3 K/uL (4.3-11.0)
[2023-03-27 07:25] LABS: CALCIUM, SERUM 8.9 mg/dL (8.5-10.1); CREATININE 0.7 mg/dL (0.6-1.3); MAGNESIUM 2.2 mg/dL (1.8-2.4); PHOSPHORUS 2.7 mg/dL (2.5-4.9); POTASSIUM 3.7 mmol/L (3.5-5.1)
--- NOTE | 2023-03-27 08:20 | NUR ---
RECEIVED ON ROOM AIR WITH 98% SPO2. NO SOB NOTED Addendum: 03/27/23 at 0821 by DARRIN HILLS RT Amended: Links added.
[2023-03-27] MEDS: DIVALPROEX SODIUM 125 MG CAP.SPRINK PO SCH ×3 (08:49→16:13)
[2023-03-27] MEDS: CHOLECALCIFEROL 1,000 UNIT TABLET (VIT D3) PO SCH ×3 (08:50→16:14)
[2023-03-27] MEDS: LOSARTAN POTASSIUM 50 MG TABLET PO SCH (08:50)
[2023-03-27] MEDS: ASPIRIN EC 81 MG TABLET.DR PO SCH (08:50)
[2023-03-27] MEDS: LEVETIRACETAM (250 MG) 250 MG TABLET PO SCH ×2 (08:50→16:14)
[2023-03-27] MEDS: OLANZAPINE 5 MG TABLET PO SCH ×3 (08:50→16:14)
[2023-03-27] MEDS: MEMANTINE HCL 5 MG TABLET PO SCH ×2 (08:50→16:13)
[2023-03-27] MEDS: MULTIVIT W/MINERALS 1 TAB TABLET PO SCH (08:51)
[2023-03-27] MEDS: TAMSULOSIN 0.4 MG CAP.SR.24H PO SCH (08:51)
[2023-03-27] MEDS: APIXABAN 5 MG TABLET PO SCH ×2 (08:51→16:16)
[2023-03-27] MEDS: FINASTERIDE (5 MG) 5 MG TABLET PO SCH (08:51)
[2023-03-27] MEDS: BENZONATATE 100 MG CAPSULE PO SCH ×3 (08:51→16:13)
[2023-03-27] MEDS: DOCUSATE SODIUM 100 MG CAPSULE PO SCH ×2 (08:51→16:13)
[2023-03-27] MEDS: FAMOTIDINE (20 MG) 20 MG TABLET PO SCH (08:52)
[2023-03-27] MEDS: METOPROLOL TARTRATE 50 MG TABLET PO SCH ×2 (09:56→16:14)
[2023-03-27] MEDS ORDERED: CEFE2PIG2 IV (12:45)
[2023-03-27 16:06] VITALS: BP 117/68
[2023-03-27 16:14] VITALS: BP 117/68
--- NOTE | 2023-03-27 17:30 | NUR ---
RN NOTE [facility], ALERT AND ORIENTED X1, ON ROOM AIR,, 02 SAT 97%. NO SOB, DISCOMFORT OR ACUTE DISTRESS NOTED. PATIENT IN TO CONTINUE WITH ANTIBIOTIC, IV ACCESS ON LFA MARTÍNEZ 20 LEFT PATENT AND FLUSHING WELL. ALL DISCHARGE FORMS WERE SIGNED, INSTRUCTIONS GIVEN TO ANGELINA CHANG FROM [facility]. PATIENT LEFT VIA AMBULANCE.
== END 2023-03-27 20:53 | DRG 137 ==
LOC: ER 22:11 → TELE1 03-23 03:07 → MEDSG1 03-26 22:25
PROVIDERS: ADMIT Nurse Practitioner Acute Care; ATTEND Nurse Practitioner Acute Care
DX: J15.6 Pneumonia due to other Gram-negative bacteria (principal); J96.01 Acute respiratory failure with hypoxia; N17.0 Acute kidney failure with tubular necrosis; G93.41 Metabolic encephalopathy; D63.8 Anemia in other chronic diseases classified elsewhere; F03.93 Unspecified dementia, unspecified severity, with mood disturbance; E86.0 Dehydration; I21.A1 Myocardial infarction type 2; D50.9 Iron deficiency anemia, unspecified; E11.9 Type 2 diabetes mellitus without complications; Z66 Do not resuscitate; F20.9 Schizophrenia, unspecified; G40.909 Epilepsy, unspecified, not intractable, without status epilepticus; I25.2 Old myocardial infarction; J44.0 Chronic obstructive pulmonary disease with (acute) lower respiratory infection; K21.9 Gastro-esophageal reflux disease without esophagitis; N40.0 Benign prostatic hyperplasia without lower urinary tract symptoms; Z79.51 Long term (current) use of inhaled steroids; Z79.4 Long term (current) use of insulin; Z79.82 Long term (current) use of aspirin; Z79.899 Other long term (current) drug therapy; Z79.01 Long term (current) use of anticoagulants; Z79.84 Long term (current) use of oral hypoglycemic drugs; F32.9 Major depressive disorder, single episode, unspecified; E87.6 Hypokalemia; I10 Essential (primary) hypertension; J81.1 Chronic pulmonary edema; F03.94 Unspecified dementia, unspecified severity, with anxiety; F41.9 Anxiety disorder, unspecified; Y95 Nosocomial condition; Z78.1 Physical restraint status; Z86.16 Personal history of COVID-19
CPT/HCPCS: 31720; 36415; 36600; 70450-TC; 71045-TC; 80048-TC; 80053-TC; 80061-TC; 80076-TC; 81001; 82728-TC; 82803-TC; 82962-TC; 83540-TC; 83605-TC; 83735-TC; 83880; 84100-TC; 84439-TC; 84443-TC; 84484-TC; 85025-TC; 87040-TC; 87081-TC; 92526; 92611-TC; 93307-TC; 94799-TC; 97116-TC; 97530-TC; A4223; A4349; C9803; G0378; J0692; J1630; J1650; J1815; J1956; J2270; J2930; J7030; J7050; J7060

== ENCOUNTER 2023-04-14 10:25 | Inpatient (IN) | payer MEDICARE, OTHER ==
[~2023-04-14] VITALS: Ht 172.7 cm; Wt 75.3 kg
[~2023-04-14 10:25] MED LIST changes: -BENZ-13 PO; +BENZ1TAB7 PO; -CEFE2FRO IV; +CEFE2PIG2 IV; +CLON0.1T PO; -DIVA125C2 PO; +DONE5TAB34 PO; +FERR325T23 PO; +FLUO40CA49 PO; +LACT10SO3 PO; +LACT1CAP69 PO; +LORA-259 PO; -OLAN2.5T3 PO; +PANT40TA2 PO; +VALP250S4 PO
[2023-04-14] MEDS ORDERED: IV NS 0.9% 1,000 ML BAG IV ONE (11:00)
--- NOTE | 2023-04-14 11:45 | NUR ---
MOVE SHEET SUBMITTED.
--- NOTE | 2023-04-14 11:49 | NUR ---
iv established. 20G RAC
--- NOTE | 2023-04-14 11:49 | NUR ---
blood drawn and sent to lab
[2023-04-14 11:59] LABS: BASOPHILS % (AUTO) 0.5 % (0.0-2.0); HEMATOCRIT 35 % (39-51); HEMOGLOBIN 10.8 g/dL (13.5-17.5); LYMPHOCYTES # (AUTO) 1.5 K/uL (0.8-4.8); LYMPHOCYTES % (AUTO) 22.4 % (20.0-44.0); MEAN CORPUSCULAR HGB CONC 31 g/dl (31.0-36.0); MEAN CORPUSCULAR VOLUME 78 fL (80-96); MONOCYTES # (AUTO) 0.5 K/uL (0.1-1.30); MONOCYTES % (AUTO) 7.5 % (2.0-12.0); NEUTROPHILS # (AUTO) 4.5 K/uL (1.8-8.9); NEUTROPHILS % (AUTO) 65.6 % (43.0-81.0); PLATELET COUNT (AUTO) 330 K/uL (150-450); RED BLOOD CELL COUNT(AUTO) 4.47 MIL/uL (4.5-6.0); WHITE BLOOD COUNT (AUTO) 6.8 K/uL (4.3-11.0)
[2023-04-14 12:07] LABS: ALANINE AMINOTRANSFERASE 20 U/L (12-78); ALKALINE PHOSPHATASE 127 U/L (46-116); ASPARTATE AMINOTRANSFERASE 11 U/L (15-37); BILIRUBIN,DIRECT 0.1 mg/dL (0.0-0.2); BILIRUBIN,TOTAL 0.4 mg/dL (0.2-1.0); CALCIUM, SERUM 9.6 mg/dL (8.5-10.1); CARBON DIOXIDE 31 mmol/L (21-32); CHLORIDE 104 mmol/L (98-107); CREATININE 1.1 mg/dL (0.6-1.3); GLUCOSE 104 mg/dL (74-106); LIPASE 35 U/L (73-393); POTASSIUM 3.8 mmol/L (3.5-5.1); SODIUM SERUM 139 mmol/L (136-145); TOTAL PROTEIN, SERUM 9.4 g/dL (6.4-8.2); UREA NITROGEN, BLOOD 9 mg/dL (7-18)
--- NOTE | 2023-04-14 12:15 | NUR ---
urine collected and sent to lab
--- NOTE | 2023-04-14 13:07 | NUR ---
EPIC CAN LABELER PAGED.
[2023-04-14 13:24] LABS: BILIRUBIN,URINE NEGATIVE (NEGATIVE); COLOR,URINE YELLOW (YELLOW); LEUKOCYTE ESTERASE ,URINE NEGATIVE (NEGATIVE); NITRITE, URINE NEGATIVE (NEGATIVE); PH,URINE 6.5 (5.0-8.0); PROTEIN,URINE NEGATIVE (NEGATIVE); UGLUCOSE NEGATIVE (NEGATIVE); UROBILINOGEN,URINE 0.2 EU/dL (0.2)
[2023-04-14] MEDS ORDERED: ACETAMINOPHEN 325 MG TABLET PO PRN (13:30)
[2023-04-14] MEDS ORDERED: ONDANSETRON HCL/PF 4 MG/2 ML VIAL IVP PRN (13:30)
[2023-04-14] MEDS ORDERED: Z GUARD REMEDY 4 OZ OINT TP PRN (13:30)
--- NOTE | 2023-04-14 13:43 | NUR ---
patient taken to ct via marly
[2023-04-14] MEDS ORDERED: ASPIRIN 325 MG TABLET PO ONE (14:00)
--- NOTE | 2023-04-14 14:46 | NUR ---
GOT BED 313-1 ADMITTING INFORMED.
--- NOTE | 2023-04-14 15:35 | NUR ---
report given to maryjane for continuation of care
--- NOTE | 2023-04-14 15:49 | NUR ---
PATIENT TRANSFERRED VIA ACLS PROTOCOL
--- NOTE | 2023-04-14 16:00 | NUR ---
BUCKET WASH OPERATOR NOTE. 67 YEAR OLD MALE CAME IN FROM ED WITH ALTERED MENTAL STATUS. A/OX1, VITALS ARE ELEVATED BP-204/110. DR MARTINEZ NOTIFIED ORDERED HYDRALAZINE 20MG IV PUSH Q6 PRN. PT IS AWAKE AND RESPONSIVE TO VOICE. PT IS SHIVERING AND PROVIDED WARM BLANKET. TEMP AT 98.2F. ABLE TO MAKE NEEDS KNOWN. PT CONTINUES TO TRY AND GET OU OF BED. BED AT LOWEST POSITION. SIDE RAILS UP X4. CALL LIGHT WITHIN REACH. WILL CONTINUE TO MONITOR. Addendum: 04/14/23 at 1730 by ERWIN ISLAS RN PT ON TELE WITH NORMAL SINUS RYTHEM 84. BED ALARM ON.
[2023-04-14] MEDS ORDERED: hydrALAZINE HCL IV 20 MG VIAL IV PRN (16:30)
--- NOTE | 2023-04-14 17:15 | NUR ---
RN NOTE- BP- 166/90. CONTINUE TO MONITOR,
--- NOTE | 2023-04-14 17:49 | NUR ---
RN NOTE WRIST RESTRAINTS PLACED. PT NON COOPERATIVE AND PULLING ON TELE MONITOR. NON EVASIVE METHODS DONE PRIOR AND DID NOT HELP. WILL CONTINUE TO MONITOR.
--- NOTE | 2023-04-14 18:20 | NUR ---
RN NOTE- CATHLEEN DHALIWAL (SISTER) PHONED. PRIMARY CAREGIVER . SHE SAID PT HAD CARDIAC ARREST 4 YEARS AGO AND HAD BRAIN DAMAGE FROM IT. DX DEMENTIA, SCHIZOPHRENIA. PT ON PUREED DIET IN PAST DUE TO PREVIOUS ASPIRATION . WILL MONITOR / ASSIST
--- NOTE | 2023-04-14 18:47 | NUR ---
RN NOTE- CT SHOWED SUSPICIOUS FOR INFARCT. PARAMETERS OF HYDRALAZINE CHANGED PER DR MARTINEZ. NIH STROKE SCALE ASSESS DONE. ST OT PT ORDERED
--- NOTE | 2023-04-14 19:00 | NUR ---
RN CLOSING NOTE. PATENT LAYING IN BED WITH BILATERAL SOFT WRIST RESTRAINTS. PT IS A/OX1 AND IS UNCOOPERATIVE.NO SIGNS OF SOB AT THE MOMENT. RIGHT ARM AC #20G INTACT AND PATENT SL. O2 @99% VIA NC AT 3L. TELE MONITOR ON READING SINUS TACH 114. BED AT LOWEST POSITION. HOB AT 45*, CALL LIGHT WITHIN REACH. WILL ENDORSE TO NOC SHIFT FOR EFFIE.
--- NOTE | 2023-04-14 19:30 | NUR ---
CLINICAL TRIALS DATA COORDINATOR OPENING NOTE RECEIVED PATIENT FROM AM NURSE; PATIENT AWAKE IN BED, A/O X 1, CONFUSED; STABLE ON 3LPM OXYGEN VIA NASAL CANNULA, BREATHING EVENLY AND NO S/S OF DISTRESS NOTED; PATIENT WAS ON BILATERAL SOFT WRIST RESTRAINTS FOR SAFETY; HOOKED ON TELE MONITORING CURRENTLY READING SINUS TACHYCARDIA; WITH IV ACCESS AT [facility] G#20 SALINE LOCK; PATIENT WAS NOTED TO HAVE GARBLED SPEECH BUT IS ABLE TO RESPOND ON FEW QUESTIONS; SAFETY MEASURES IMPLEMENTED, HEAD OF BED ELEVATED, BED LOCKED IN LOWEST POSITION, SIDE RAILS UP X 4, CALL LIGHT WITHIN REACH; WILL CONTINUE TO MONITOR THROUGHOUT SHIFT
[2023-04-14 20:00] VITALS: BP 191/105
[2023-04-14] MEDS ORDERED: ENOXAPARIN SODIUM 40 MG/0.4 ML DISP.SYRIN SQ SCH (21:00)
[2023-04-14] MEDS: ATORVASTATIN 40 MG TABLET PO SCH (21:09)
[2023-04-15] VITALS: BP 142/94
[2023-04-15 04:00] VITALS: BP 164/99
--- NOTE | 2023-04-15 06:48 | NUR ---
FOREMAN OR SUPERVISOR AND OPERATOR CLOSING NOTE PATIENT AWAKE IN BED, A/O X 1, CONFUSED; STABLE ON 3LPM OXYGEN VIA NASAL CANNULA, BREATHING EVENLY AND NO S/S OF DISTRESS NOTED; PATIENT WAS ON BILATERAL SOFT WRIST RESTRAINTS FOR SAFETY, CHECKED FOR CIRCULATION ACCORDINGLY; HOOKED ON TELE MONITORING CURRENTLY READING SINUS RHYTHM 60SS BPM; WITH IV ACCESS AT RAC G#20 SALINE LOCK, INTACT AND PATENT; PATIENT WAS NOTED TO HAVE GARBLED SPEECH; ADMINISTERED MEDICATIONS PRESCRIBED; PATIENT'S NEEDS ATTENDED; SAFETY MEASURES IMPLEMENTED, HEAD OF BED ELEVATED, BED LOCKED IN LOWEST POSITION, SIDE RAILS UP X 4, CALL LIGHT WITHIN REACH; WILL ENDORSE TO AM NURSE FOR EFFIE.
[2023-04-15 06:58] LABS: BASOPHILS % (AUTO) 0.3 % (0.0-2.0); EOSINOPHILS % (AUTO) 1.8 % (0.0-6.0); HEMATOCRIT 38 % (39-51); LYMPHOCYTES # (AUTO) 1.3 K/uL (0.8-4.8); LYMPHOCYTES % (AUTO) 16.1 % (20.0-44.0); MEAN CORPUSCULAR HGB CONC 32 g/dl (31.0-36.0); MEAN CORPUSCULAR VOLUME 78 fL (80-96); MONOCYTES # (AUTO) 0.8 K/uL (0.1-1.30); MONOCYTES % (AUTO) 9.8 % (2.0-12.0); NEUTROPHILS # (AUTO) 5.6 K/uL (1.8-8.9); PLATELET COUNT (AUTO) 213 K/uL (150-450); RED BLOOD CELL COUNT(AUTO) 4.89 MIL/uL (4.5-6.0); WHITE BLOOD COUNT (AUTO) 7.8 K/uL (4.3-11.0)
--- NOTE | 2023-04-15 07:21 | NUR ---
MANGLE CATCHER OPENING NOTE RECEIVED PATIENT IN BED, SLEEPING, AROUSABLE TO VERBAL STIMULI, A/O X 1, CONFUSED; STABLE ON 3LPM OXYGEN VIA NASAL CANNULA, BREATHING EVENLY AND NO S/S OF DISTRESS NOTED, SATURATING AT 98%, PATIENT WAS ON BILATERAL SOFT WRIST RESTRAINTS FOR SAFETY, HOOKED ON TELE MONITORING CURRENTLY READING SR WITH A HR OF 64, WITH IV ACCESS AT RAC G#20 SALINE LOCK, INTACT AND PATIENT, FLUSHING WELL, WAS NOTED TO HAVE GARBLED SPEECH BUT IS ABLE TO RESPOND ON FEW QUESTIONS; SAFETY MEASURES IMPLEMENTED, HEAD OF BED ELEVATED, BED LOCKED IN LOWEST POSITION, SIDE RAILS UP X 4, CALL LIGHT WITHIN EASY REACH, WILL CONTINUE TO MONITOR THROUGHOUT SHIFT
[2023-04-15 08:00] VITALS: BP 152/101
[2023-04-15 08:18] LABS: ALBUMIN 2.7 g/dL (3.4-5.0); BILIRUBIN,TOTAL 0.6 mg/dL (0.2-1.0); CALCIUM, SERUM 9.4 mg/dL (8.5-10.1); CREATININE 0.8 mg/dL (0.6-1.3); MAGNESIUM 1.8 mg/dL (1.8-2.4); PHOSPHORUS 3.5 mg/dL (2.5-4.9); POTASSIUM 3.7 mmol/L (3.5-5.1); TOTAL PROTEIN, SERUM 8.5 g/dL (6.4-8.2)
[2023-04-15] MEDS ORDERED: IOHEXOL-350 100 ML VIAL IV ONE ×2 (10:04→10:46)
[2023-04-15] MEDS ORDERED: IV NS 0.9% 250 ML IV ONE ×2 (10:04→10:46)
[2023-04-15] MEDS ORDERED: CT SWABBABLE VALVE TRANS SET 1 EA INFUS.SET MC ONE (10:04)
[2023-04-15 10:38] LABS: CHOLESTEROL 141 mg/dL (<200); HDL CHOLESTEROL 55 mg/dL (40-60); LDL 69 mg/dL (0-99); TRIGLYCERIDES 42 mg/dL (30-150)
--- NOTE | 2023-04-15 11:16 | NUR ---
RN NOTES CTA OF BRAIN AND CAROTID DONE, NO RESULTS AT THIS TIME. PER TIME STAMP ASSEMBLER NANCY, HOLD METFORMIN FOR 48 HOURS, RESUMED ON 04/17/23 AT 1700.
[2023-04-15 12:00] VITALS: BP 130/78
[2023-04-15] MEDS ORDERED: ALBUTEROL FS 2.5 MG/0.5 ML VIAL.NEB NEB PRN (12:00)
[2023-04-15] MEDS ORDERED: IPRATROPIUM NEB FS 0.5 MG/2.5 ML AMPUL.NEB NEB PRN (12:00)
[2023-04-15] MEDS: VALPROIC ACID 250 MG/5 ML UDC PO SCH ×2 (13:00→16:49)
[2023-04-15] MEDS: OLANZAPINE 5 MG TABLET PO SCH ×2 (13:00→16:50)
[2023-04-15 16:00] VITALS: BP 120/85
[2023-04-15] MEDS: LEVETIRACETAM SOL (5 ML) 100 MG/ML UDC PO SCH (16:49)
[2023-04-15] MEDS: MEMANTINE HCL 5 MG TABLET PO SCH (16:50)
[2023-04-15] MEDS: FAMOTIDINE (20 MG) 20 MG TABLET PO SCH (16:50)
[2023-04-15] MEDS: METOPROLOL TARTRATE 25 MG TABLET PO SCH (16:52)
[2023-04-15] MEDS: APIXABAN 5 MG TABLET PO SCH (16:55)
[2023-04-15] MEDS: METFORMIN 500 MG TABLET PO SCH (17:00)
[2023-04-15] MEDS: BENZTROPINE MESYLATE (1 MG) 1 MG TABLET PO SCH (17:15)
--- NOTE | 2023-04-15 18:44 | NUR ---
MERCHANDISE EXECUTION LEADER CLOSING NOTE (315-1) RECEIVED PATIENT IN BED, SLEEPING, A/O X 1, CONFUSED; STABLE ON 3LPM OXYGEN VIA NASAL CANNULA, BREATHING EVENLY AND NO S/S OF DISTRESS NOTED, SATURATING AT 98%, PATIENT WAS ON BILATERAL SOFT WRIST RESTRAINTS FOR SAFETY, ON CARDIAC MONITORING CURRENTLY READING SR WITH A HR OF 77, WITH IV ACCESS AT R WRIST G#18 SALINE LOCK, INTACT AND PATIENT, FLUSHING WELL, SAFETY MEASURES IN PLACE AND MAINTAINED AT ALL TIMES, HEAD OF BED ELEVATED, BED LOCKED IN LOWEST POSITION, SIDE RAILS UP X 4, CALL LIGHT WITHIN EASY REACH, SCHEDULED MEDICATIONS ADMINISTERED, PATIENT WAS TURNED AND REPOSITIONED PER PROTOCOL, ALL NEEDS ATTENDED AND ANTICIPATED, WILL ENDORSE TO CLOUD AUTOMATION TESTER NURSE.
--- NOTE | 2023-04-15 19:25 | NUR ---
TELERN FULLY AWAKE, TRYING TO GET OOB. ON BILATERAL SOFT WRIST RESTRAINTS. SAFETY PRECAUTIONS EMPHASIZED, NEEDS FURTHER INSTRUCTIONS NEEDS CONSTANT MONITORING. SR ON THE MONITOR, CONTINUED MONITORING. V/S STABLE.
[2023-04-15 20:00] VITALS: BP 135/84
[2023-04-15] MEDS: ATORVASTATIN 40 MG TABLET PO SCH (21:47)
[2023-04-15] MEDS: TRAZODONE 50 MG TABLET PO SCH (21:48)
[2023-04-15] MEDS: DONEPEZIL 5 MG TABLET PO SCH (21:48)
--- NOTE | 2023-04-15 22:00 | NUR ---
TELERN ASSESSED PER FLOW SHEET. ABLE TO FOLLOW INSTRUCTIONS. DUE MEDS ADMINISTERED CRUSHED WITH PUDDING, ASSISTED ATE 100 %.HS CARE DONE, KEPT EDRY CLEAN AND COMFORTABLE. REPOSITIONED PER COMFORT.
[2023-04-16] VITALS: BP 130/87
[2023-04-16 04:00] VITALS: BP 129/80
--- NOTE | 2023-04-16 06:53 | NUR ---
MSRN AM CARE DONE. WAS SCREAMING EAR;IER AND WANTED TO GET OUT OF BED. WANTED TO EAT SOLID FOOD. WILL ADDRESS TO INCOMING RN . ALLOWED ONLY PUREED DIET.
--- NOTE | 2023-04-16 07:22 | NUR ---
YARN COMBER OPENING NOTE RECEIVED PATIENT IN BED, SLEEPING, A/O X 1, CONFUSED; STABLE ON 3LPM OXYGEN VIA NASAL CANNULA, BREATHING EVENLY AND NO S/S OF DISTRESS NOTED, SATURATING AT 98%, PATIENT WAS ON BILATERAL SOFT WRIST RESTRAINTS FOR SAFETY, HOOKED ON TELE MONITORING CURRENTLY READING SR WITH A HR OF 62, WITH IV ACCESS AT R WRIST #18G SALINE LOCK, INTACT AND PATIENT, FLUSHING WELL, WAS NOTED TO HAVE GARBLED SPEECH BUT IS ABLE TO RESPOND ON FEW QUESTIONS; SAFETY MEASURES IMPLEMENTED, HEAD OF BED ELEVATED, BED LOCKED IN LOWEST POSITION, SIDE RAILS UP X 4, CALL LIGHT WITHIN EASY REACH, WILL CONTINUE TO MONITOR.
[2023-04-16 08:00] VITALS: BP 154/98
[2023-04-16] MEDS: VALPROIC ACID 250 MG/5 ML UDC PO SCH ×3 (08:49→16:45)
[2023-04-16] MEDS: LEVETIRACETAM SOL (5 ML) 100 MG/ML UDC PO SCH ×2 (08:49→16:45)
[2023-04-16] MEDS: TAMSULOSIN 0.4 MG CAP.SR.24H PO SCH (08:50)
[2023-04-16] MEDS: OLANZAPINE 5 MG TABLET PO SCH ×3 (08:50→16:45)
[2023-04-16] MEDS: MEMANTINE HCL 5 MG TABLET PO SCH ×2 (08:50→16:46)
[2023-04-16] MEDS: APIXABAN 5 MG TABLET PO SCH ×2 (08:51→16:47)
[2023-04-16] MEDS: FAMOTIDINE (20 MG) 20 MG TABLET PO SCH ×2 (08:51→16:45)
[2023-04-16] MEDS: METOPROLOL TARTRATE 25 MG TABLET PO SCH ×2 (08:52→16:46)
[2023-04-16] MEDS: FERROUS SULFATE (325 MG) 325 MG/TAB TABLET PO SCH (08:52)
[2023-04-16] MEDS: LOSARTAN POTASSIUM 50 MG TABLET PO SCH (08:52)
[2023-04-16] MEDS: BENZTROPINE MESYLATE (1 MG) 1 MG TABLET PO SCH ×2 (08:52→17:10)
[2023-04-16] MEDS: METFORMIN 500 MG TABLET PO SCH ×2 (09:00→17:00)
[2023-04-16] MEDS: FINASTERIDE (5 MG) 5 MG TABLET PO SCH (09:16)
[2023-04-16] MEDS ORDERED: ASPI-1169 PO (10:49)
[2023-04-16] MEDS ORDERED: INSU3INS8 SQ (10:49)
[2023-04-16] MEDS ORDERED: AMIN30LI27 PO (10:49)
[2023-04-16] MEDS: ASPIRIN EC 81 MG TABLET.DR PO SCH (11:30)
[2023-04-16] MEDS ORDERED: DOCUSATE SODIUM 100 MG CAPSULE PO PRN (12:00)
[2023-04-16] MEDS ORDERED: DOCUSATE SODIUM 250 MG CAPSULE PO ONE (12:00)
--- NOTE | 2023-04-16 14:43 | NUR ---
TEXTED DR. RAMOS FOR MRI APPROVAL.
--- NOTE | 2023-04-16 14:44 | NUR ---
MRI ON HOLD FOR NOW PER DR. RAMSO HE WILL LET US KNOW.
[2023-04-16 16:00] VITALS: BP 172/96
--- NOTE | 2023-04-16 16:30 | NUR ---
RN NOTE CALLED MRI UNIT TO ASK UPDATE REGARDING PROCEDURE BUT WAS INFORMED BY TECH THAT THEY ARE STILL WAITING FOR AN AUTHORIZATION. WILL ENDORSE TO AVIATION PROGRAM MANAGER NURSE.
--- NOTE | 2023-04-16 18:37 | NUR ---
SHIP RIGGER CLOSING NOTE PATIENT IN BED, AA/O X 1-2, CONFUSED; STABLE ON 3LPM OXYGEN VIA NASAL CANNULA, BREATHING EVENLY AND NO S/S OF DISTRESS NOTED, SATURATING AT 98%, PATIENT WAS ON BILATERAL SOFT WRIST RESTRAINTS FOR SAFETY, ON CARDIAC MONITORING CURRENTLY READING SB WITH A HR OF 52, WITH IV ACCESS AT R WRIST G#18 SALINE LOCK, INTACT AND PATIENT, FLUSHING WELL, SAFETY MEASURES IN PLACE AND MAINTAINED AT ALL TIMES, HEAD OF BED ELEVATED, BED LOCKED IN LOWEST POSITION, SIDE RAILS UP X 4, CALL LIGHT WITHIN EASY REACH, SCHEDULED MEDICATIONS ADMINISTERED, PATIENT WAS TURNED AND REPOSITIONED PER PROTOCOL, ALL NEEDS ATTENDED AND ANTICIPATED, WILL ENDORSE TO MERCURY CELL CLEANER NURSE.
--- NOTE | 2023-04-16 19:40 | NUR ---
PLANT SECURITY GUARD OPENING NOTE RECEIVED PATIENT IN BED, SLEEPING. PT A/O X 1, CONFUSED. ON 3LPM OXYGEN VIA NASAL CANNULA, BREATHING EVENLY. NO S/S OF DISTRESS NOTED. PATIENT ON BILATERAL SOFT WRIST RESTRAINTS FOR SAFETY. ON CARDIAC MONITORING CURRENTLY READING SR. IV ACCESS TO RIGHT WRIST #18G SALINE LOCK, INTACT AND PATIENT, FLUSHING WELL. SAFETY MEASURES IMPLEMENTED, HEAD OF BED ELEVATED, BED LOCKED IN LOWEST POSITION, SIDE RAILS UP X 4, CALL LIGHT WITHIN EASY REACH, WILL CONTINUE TO MONITOR.
[2023-04-16 20:00] VITALS: BP 140/83
[2023-04-16] MEDS: DONEPEZIL 5 MG TABLET PO SCH (22:18)
[2023-04-16] MEDS: ATORVASTATIN 40 MG TABLET PO SCH (22:18)
[2023-04-16] MEDS: TRAZODONE 50 MG TABLET PO SCH (22:18)
[2023-04-17] VITALS: BP 122/80
[2023-04-17 04:00] VITALS: BP 132/84
[2023-04-17 05:53] LABS: BASOPHILS % (AUTO) 0.4 % (0.0-2.0); EOSINOPHILS % (AUTO) 7.8 % (0.0-6.0); HEMATOCRIT 38 % (39-51); HEMOGLOBIN 12.2 g/dL (13.5-17.5); LYMPHOCYTES # (AUTO) 1.3 K/uL (0.8-4.8); LYMPHOCYTES % (AUTO) 39.8 % (20.0-44.0); MEAN CORPUSCULAR HGB CONC 32 g/dl (31.0-36.0); MEAN CORPUSCULAR VOLUME 77 fL (80-96); MONOCYTES # (AUTO) 0.3 K/uL (0.1-1.30); MONOCYTES % (AUTO) 10.2 % (2.0-12.0); NEUTROPHILS # (AUTO) 1.4 K/uL (1.8-8.9); NEUTROPHILS % (AUTO) 41.8 % (43.0-81.0); PLATELET COUNT (AUTO) 226 K/uL (150-450); RED BLOOD CELL COUNT(AUTO) 4.91 MIL/uL (4.5-6.0); WHITE BLOOD COUNT (AUTO) 3.3 K/uL (4.3-11.0)
[2023-04-17 06:10] LABS: CALCIUM, SERUM 9.1 mg/dL (8.5-10.1); CREATININE 0.8 mg/dL (0.6-1.3); MAGNESIUM 1.8 mg/dL (1.8-2.4); PHOSPHORUS 3.4 mg/dL (2.5-4.9); POTASSIUM 3.6 mmol/L (3.5-5.1)
--- NOTE | 2023-04-17 06:30 | NUR ---
BLEACHER SULFITE PULP CLOSING NOTE LEFT PATIENT IN BED, SLEEPING. PT A/O X 1, CONFUSED. ON 3LPM OXYGEN VIA NASAL CANNULA. NO S/S OF DISTRESS NOTED. PATIENT ON BILATERAL SOFT WRIST RESTRAINTS FOR SAFETY. ON CARDIAC MONITORING CURRENTLY READING SR. IV ACCESS TO RIGHT WRIST #18G SALINE LOCK, INTACT AND PATIENT, FLUSHING WELL. SAFETY MEASURES IMPLEMENTED, HEAD OF BED ELEVATED, BED LOCKED IN LOWEST POSITION, SIDE RAILS UP X 4, CALL LIGHT WITHIN EASY REACH. PT LEFT CLEAN, AND DRY. ALL DUE MEDS GIVEN. WILL ENDORSE PT TO AM SHIFT NURSE FOR EFFIE.
--- NOTE | 2023-04-17 07:25 | NUR ---
COMPUTER NUMERICAL CONTROL PROGRAMMER OPENING NOTE RECEIVED PATIENT ASLEEP IN BED BUT EASILY AROUSABLE, A/O X 1-2, CONFUSED; ON 2LPM OXYGEN VIA NASAL CANNULA, WITH EVEN AND UNLABORED BREATHING AND NO S/S OF DISTRESS NOTED. PATIENT ON TELE MONITORING CURRENTLY READING SR WITH A HR OF 61, WITH IV ACCESS AT LEFT WRIST #18G SALINE LOCK, INTACT AND PATIENT. PATIENT WAS ON BILATERAL SOFT WRIST RESTRAINTS FOR SAFETY. SAFETY MEASURES IMPLEMENTED, HEAD OF BED ELEVATED, BED LOCKED IN LOWEST POSITION, SIDE RAILS UP X 4, CALL LIGHT WITHIN EASY REACH, WILL CONTINUE WITH THE PLAN OF CARE.
[2023-04-17] MEDS: OLANZAPINE 5 MG TABLET PO SCH ×3 (08:57→16:59)
[2023-04-17] MEDS: VALPROIC ACID 250 MG/5 ML UDC PO SCH ×3 (08:57→16:59)
[2023-04-17] MEDS: LEVETIRACETAM SOL (5 ML) 100 MG/ML UDC PO SCH ×2 (08:57→16:59)
[2023-04-17] MEDS: TAMSULOSIN 0.4 MG CAP.SR.24H PO SCH (08:57)
[2023-04-17] MEDS: FERROUS SULFATE (325 MG) 325 MG/TAB TABLET PO SCH (08:58)
[2023-04-17] MEDS: MEMANTINE HCL 5 MG TABLET PO SCH ×2 (08:58→17:00)
[2023-04-17] MEDS: ASPIRIN EC 81 MG TABLET.DR PO SCH (08:59)
[2023-04-17] MEDS: APIXABAN 5 MG TABLET PO SCH ×2 (08:59→17:03)
[2023-04-17] MEDS: FINASTERIDE (5 MG) 5 MG TABLET PO SCH (09:00)
[2023-04-17] MEDS: BENZTROPINE MESYLATE (1 MG) 1 MG TABLET PO SCH ×2 (09:00→16:59)
[2023-04-17] MEDS: LOSARTAN POTASSIUM 50 MG TABLET PO SCH (09:01)
[2023-04-17] MEDS: METOPROLOL TARTRATE 25 MG TABLET PO SCH ×2 (09:02→17:00)
[2023-04-17] MEDS: METFORMIN 500 MG TABLET PO SCH ×2 (09:05→16:59)
[2023-04-17] MEDS: FAMOTIDINE (20 MG) 20 MG TABLET PO SCH ×2 (09:05→16:59)
[2023-04-17 09:24] VITALS: BP 151/85
--- NOTE | 2023-04-17 10:40 | NUR ---
ELECTROLYSIS OPERATOR NOTE SEEN AND EXAMINED BY HOSPITALIST DEUCE.
[2023-04-17 13:15] VITALS: BP 133/81
[2023-04-17 18:47] VITALS: BP 141/91
--- NOTE | 2023-04-17 18:55 | NUR ---
ASSISTANT SUPERINTENDENT FOR CURRICULUM CLOSING NOTES PATIENT RESTING IN BED, A/O X 1-2, CONFUSED; STABLE ON 2LPM OXYGEN VIA NASAL CANNULA, WITH EVEN AND UNLABORED BREATHING AND NO S/S OF DISTRESS NOTED. PATIENT ON TELE MONITORING CURRENTLY READING SR WITH A HR OF 63, WITH IV ACCESS AT LEFT WRIST #18G SALINE LOCK, INTACT AND PATIENT. PATIENT WAS ON BILATERAL SOFT WRIST RESTRAINTS FOR SAFETY. WILL CONTINUE NEURO CHECK EVERY 4 HOURS , NO SIGNIFICANT CHANGES. SAFETY MEASURES IMPLEMENTED, HEAD OF BED ELEVATED, BED LOCKED IN LOWEST POSITION, SIDE RAILS UP X 4, CALL LIGHT WITHIN EASY REACH, WILL CONTINUE WITH THE PLAN OF CARE.
--- NOTE | 2023-04-17 19:50 | NUR ---
GALLERY MANAGER OPENING NOTE RECEIVED PATIENT IN BED, AWAKE. PT A/O X 1-2, CONFUSED. ON 3LPM OXYGEN VIA NASAL CANNULA, BREATHING EVENLY. NO S/S OF DISTRESS NOTED. PATIENT ON BILATERAL SOFT WRIST RESTRAINTS FOR SAFETY. ON CARDIAC MONITORING CURRENTLY READING SR, WITH HR: 60. IV ACCESS TO RIGHT WRIST #18G SALINE LOCK, INTACT AND PATIENT, FLUSHING WELL. SAFETY MEASURES IMPLEMENTED, HEAD OF BED ELEVATED, BED LOCKED IN LOWEST POSITION, SIDE RAILS UP X 4, CALL LIGHT WITHIN EASY REACH, WILL CONTINUE TO MONITOR.
[2023-04-17 20:00] VITALS: BP 162/98
[2023-04-17] MEDS: DONEPEZIL 5 MG TABLET PO SCH (21:39)
[2023-04-17] MEDS: TRAZODONE 50 MG TABLET PO SCH (21:39)
[2023-04-17] MEDS: ATORVASTATIN 40 MG TABLET PO SCH (21:39)
[2023-04-18] VITALS: BP 149/76
[2023-04-18 04:00] VITALS: BP 144/82
--- NOTE | 2023-04-18 06:40 | NUR ---
ROCK STAR CLOSING NOTE LEFT PATIENT IN BED, AWAKE. PT A/O X 1, CONFUSED. NO S/S OF RESPIRATORY DISTRESS NOTED. PATIENT ON BILATERAL SOFT WRIST RESTRAINTS FOR SAFETY. ON CARDIAC MONITORING. IV ACCESS TO RIGHT WRIST #18G SALINE LOCK, INTACT AND PATIENT, FLUSHING WELL. SAFETY MEASURES IMPLEMENTED, HEAD OF BED ELEVATED, BED LOCKED IN LOWEST POSITION, SIDE RAILS UP X 4, CALL LIGHT WITHIN EASY REACH. PT LEFT CLEAN, AND DRY. ALL DUE MEDS GIVEN. WILL ENDORSE PT TO INCOMING SHIFT NURSE FOR CONTINUITY OF CARE.
--- NOTE | 2023-04-18 07:18 | NUR ---
ASSOCIATE PROFESSOR OF GEOLOGY OPENING NOTE RECEIVED PATIENT AWAKE IN BED , A/O X 1-2, CONFUSED; ON 2LPM OXYGEN VIA NASAL CANNULA, WITH EVEN AND UNLABORED BREATHING AND NO S/S OF DISTRESS NOTED. PATIENT ON TELE MONITORING CURRENTLY READING SR WITH A HR OF 68, WITH IV ACCESS AT LEFT WRIST #18G SALINE LOCK, INTACT AND PATIENT. PATIENT WAS ON BILATERAL SOFT WRIST RESTRAINTS FOR SAFETY. SAFETY MEASURES IMPLEMENTED, HEAD OF BED ELEVATED, BED LOCKED IN LOWEST POSITION, SIDE RAILS UP X 4, CALL LIGHT WITHIN EASY REACH, WILL CONTINUE WITH THE PLAN OF CARE.
[2023-04-18 08:00] VITALS: BP 152/88
[2023-04-18] MEDS: APIXABAN 5 MG TABLET PO SCH ×2 (08:43→09:00)
[2023-04-18] MEDS: LEVETIRACETAM (250 MG) 250 MG TABLET PO SCH ×3 (08:44→17:29)
[2023-04-18] MEDS: MEMANTINE HCL 5 MG TABLET PO SCH ×3 (08:44→17:30)
[2023-04-18] MEDS: ASPIRIN EC 81 MG TABLET.DR PO SCH ×2 (08:44→09:00)
[2023-04-18] MEDS: BENZTROPINE MESYLATE (1 MG) 1 MG TABLET PO SCH ×3 (08:44→17:30)
[2023-04-18] MEDS: FERROUS SULFATE (325 MG) 325 MG/TAB TABLET PO SCH ×2 (08:44→09:00)
[2023-04-18] MEDS: TAMSULOSIN 0.4 MG CAP.SR.24H PO SCH ×2 (08:44→09:00)
[2023-04-18] MEDS: FAMOTIDINE (20 MG) 20 MG TABLET PO SCH ×3 (08:44→17:30)
[2023-04-18] MEDS: FINASTERIDE (5 MG) 5 MG TABLET PO SCH ×2 (08:45→09:00)
[2023-04-18] MEDS: VALPROIC ACID 250 MG/5 ML UDC PO SCH ×4 (08:45→17:29)
[2023-04-18] MEDS: OLANZAPINE 5 MG TABLET PO SCH ×4 (08:45→17:29)
[2023-04-18] MEDS: METFORMIN 500 MG TABLET PO SCH ×3 (08:45→17:29)
[2023-04-18] MEDS: LOSARTAN POTASSIUM 50 MG TABLET PO SCH ×2 (08:46→09:00)
[2023-04-18] MEDS: METOPROLOL TARTRATE 25 MG TABLET PO SCH ×3 (08:46→17:30)
[2023-04-18 09:34] LABS: BASOPHILS % (AUTO) 0.5 % (0.0-2.0); EOSINOPHILS % (AUTO) 6.8 % (0.0-6.0); HEMATOCRIT 39 % (39-51); HEMOGLOBIN 12.4 g/dL (13.5-17.5); LYMPHOCYTES # (AUTO) 0.9 K/uL (0.8-4.8); LYMPHOCYTES % (AUTO) 20.3 % (20.0-44.0); MEAN CORPUSCULAR HGB CONC 32 g/dl (31.0-36.0); MEAN CORPUSCULAR VOLUME 78 fL (80-96); MONOCYTES # (AUTO) 0.5 K/uL (0.1-1.30); MONOCYTES % (AUTO) 9.9 % (2.0-12.0); NEUTROPHILS # (AUTO) 2.9 K/uL (1.8-8.9); NEUTROPHILS % (AUTO) 62.5 % (43.0-81.0); PLATELET COUNT (AUTO) 248 K/uL (150-450); RED BLOOD CELL COUNT(AUTO) 5.05 MIL/uL (4.5-6.0); WHITE BLOOD COUNT (AUTO) 4.6 K/uL (4.3-11.0)
--- NOTE | 2023-04-18 09:50 | NUR ---
FARM CONTRACTOR BUYER NOTE PATIENT BECOME AGITATED TRYING TO GET UP FROM HIS BED WITHOUT ASSISTANCE. TRYING TO ENCOURAGE PATIENT TO CALM DOWN. ASSISTED PATIENT TO WALK AROUND THE [address] BUT PATIENT STILL AGITATED. PLACE ON 2 POINT RESTRAINT TO PREVENT FROM INJURY. INFORMED HOSPITALIST DEUCE OF PATIENT'S BEHAVIOR.
[2023-04-18 09:51] LABS: MAGNESIUM 1.6 mg/dL (1.8-2.4); PHOSPHORUS 2.9 mg/dL (2.5-4.9); POTASSIUM 3.6 mmol/L (3.5-5.1)
[2023-04-18] MEDS ORDERED: LORAZEPAM INJ 2 MG/ML VIAL IV STA (10:20)
--- NOTE | 2023-04-18 10:35 | NUR ---
SAFETY TRAINER NOTE WITNESSED WASTING OF PARTIAL DOSE OF MEDICATION ATIVAN WITH CHARLENE PAUL ORDERED.
--- NOTE | 2023-04-18 10:40 | NUR ---
MS RN NOTE PATIENT ASSISTED TO BED AND PLACED ON 4 POINT RESTRAINT. PATIENT STILL AGITATED AT THIS POINT. PROVIDED WITH LOW STIMULUS ENVIRONMENT.
--- NOTE | 2023-04-18 10:45 | NUR ---
NEUROPATHOLOGIST NOTE SEEN BY HOSPITALIST BLANK TRIPATHI, PATIENT WAS STILL AGITATED WITH RESTRAINTS ON, PROVIDED WITH CALM AND QUIET ENVIRONMENT. WITH ORDER TO GIVE ATIVAN X1. WASTED ATIVAN WITH CHARLENE JACKSON AND ADMINISTERED MEDICATION ORDERED. COMFORT MEASURES PROVIDED. WILL CONTINUE WITH PLAN OF CARE.
--- NOTE | 2023-04-18 10:45 | NUR ---
ALARM INSTALLATION TECHNICIAN NOTE KEPT PATIENT ON 4POINT RESTRAINT PER HOSPITALIST TO ALSO FOR DE ESCALATION. PATIENT KEPT WITHIN VISUAL FIELD FOR MONITORING. PROVIDED WITH CALM AND QUIET ENVIRONMENT.
--- NOTE | 2023-04-18 11:20 | NUR ---
AVIATION WARFARE SYSTEMS OPERATOR NOTE PATIENT STILL RESTLESS BUT APPEARS LESS AGITATED THAN LAST TIME.
[2023-04-18 12:00] VITALS: BP 136/93
--- NOTE | 2023-04-18 13:00 | NUR ---
GETTERER NOTE' PATIENT MORE COOPERATIVE NOW, PATIENT FINISHED HIS LUNCH BUT REFUSED MEDICATIONS. KEPT ON 4 POINT RESTRAINT WITH NO APPARENT CIRCULATORY AND MOTOR DEFICIT. WILL CONTINUE WITH PLAN OF CARE.
[2023-04-18 16:00] VITALS: BP 137/84
[2023-04-18] MEDS: RIVAROXABAN 10 MG TABLET PO SCH (17:32)
--- NOTE | 2023-04-18 18:58 | NUR ---
SALES PROMOTION MANAGER CLOSING NOTES PATIENT RESTING IN BED, A/O X 1-2, CONFUSED; STABLE ON 2LPM OXYGEN VIA NASAL CANNULA, WITH EVEN AND UNLABORED BREATHING AND NO S/S OF DISTRESS NOTED. PATIENT NOT ON TELE MONITORING WITH D/C ORDER FROM MD, WITH IV ACCESS AT RIGHT FA #22G SALINE LOCK, INTACT AND PATIENT. PATIENT WAS ON BILATERAL SOFT WRIST RESTRAINTS FOR SAFETY. WILL CONTINUE NEURO CHECK EVERY 4 HOURS , NO SIGNIFICANT CHANGES. PATIENT BECAME CALM AND ABLE TO TOOK HIS MEDS. SAFETY MEASURES IMPLEMENTED, HEAD OF BED ELEVATED, BED LOCKED IN LOWEST POSITION, SIDE RAILS UP X 4, CALL LIGHT WITHIN EASY REACH, WILL ENDORSE ACCORDINGLY.
[2023-04-18 20:00] VITALS: BP 194/99
--- NOTE | 2023-04-18 20:00 | NUR ---
RN MS OPENING NOTES RECEIVED PATIENT IN BED, A/O X 2 CONFUSED, HOOKED TO OXYGEN VIA NASAL CANNULA AT 2LPM SATURATING WELL NO SOB/ NOTED AT THIS TIME. ON PUREED DIET CRUSHED MEDICATIONS ON ASPIRATION PRECAUTIONS KEPT HEAD OF THE BED ELEVATED AT ALL TIMES. AMBULATE WITH ASSISTANCE. ON 4 POINT RESTRAINT. ON PERMISSIVE HYPERTENSION. KEPT BED ON LOWER LOCKED POSITION, KEPT SIDE RAILS UP X 3 ALL THE TIME, KEPT CALL LIGHT WITHIN AT REACH. KEPT PATIENT WARM AND COMFORTABLE. WILL CONTINUE TO MONITOR
[2023-04-18] MEDS: DONEPEZIL 5 MG TABLET PO SCH (21:35)
[2023-04-18] MEDS: ATORVASTATIN 40 MG TABLET PO SCH (21:35)
[2023-04-18] MEDS: TRAZODONE 50 MG TABLET PO SCH (21:35)
--- NOTE | 2023-04-19 06:32 | NUR ---
RN MS CLOSING NOTES PATIENT IS IN BED, A/O X 2 CONFUSED, HOOKED TO OXYGEN VIA NASAL CANNULA AT 2LPM SATURATING WELL NO SOB/ NOTED AT THIS TIME. ON PUREED DIET CRUSHED MEDICATIONS ON ASPIRATION PRECAUTIONS KEPT HEAD OF THE BED ELEVATED AT ALL TIMES. AMBULATE WITH ASSISTANCE. ON 4 POINT RESTRAINT. ON PERMISSIVE HYPERTENSION. KEPT BED ON LOWER LOCKED POSITION, ALL DUE MEDICATIONS GIVEN, ALL NEEDS ATTENDED, KEPT PATIENT WARM AND COMFORTABLE, KEPT SIDE RAILS UP X 3 ALL THE TIME, KEPT CALL LIGHT WITHIN AT REACH. KEPT PATIENT WARM AND COMFORTABLE. WILL ENDORSED TO NECT SHIFT FOR EFFIE.
[2023-04-19 06:44] LABS: BASOPHILS % (AUTO) 1.2 % (0.0-2.0); HEMATOCRIT 37 % (39-51); HEMOGLOBIN 11.5 g/dL (13.5-17.5); LYMPHOCYTES # (AUTO) 1.4 K/uL (0.8-4.8); LYMPHOCYTES % (AUTO) 32.8 % (20.0-44.0); MEAN CORPUSCULAR HGB CONC 31 g/dl (31.0-36.0); MEAN CORPUSCULAR VOLUME 78 fL (80-96); MONOCYTES # (AUTO) 0.6 K/uL (0.1-1.30); MONOCYTES % (AUTO) 13.9 % (2.0-12.0); NEUTROPHILS # (AUTO) 1.8 K/uL (1.8-8.9); NEUTROPHILS % (AUTO) 44.1 % (43.0-81.0); PLATELET COUNT (AUTO) 211 K/uL (150-450); RED BLOOD CELL COUNT(AUTO) 4.69 MIL/uL (4.5-6.0); WHITE BLOOD COUNT (AUTO) 4.1 K/uL (4.3-11.0)
[2023-04-19 07:26] LABS: CALCIUM, SERUM 8.9 mg/dL (8.5-10.1); CREATININE 0.8 mg/dL (0.6-1.3); MAGNESIUM 1.7 mg/dL (1.8-2.4); PHOSPHORUS 3.4 mg/dL (2.5-4.9); POTASSIUM 3.9 mmol/L (3.5-5.1)
[2023-04-19 07:30] VITALS: BP 137/74
--- NOTE | 2023-04-19 07:45 | NUR ---
RN MS OPENING NOTES RECEIVED PT ASLEEP IN BED WITH HOB SLIGHTLY ELEVATED, EASILY AWAKEN BY VERBAL AND TACTILE STIMULI, RESPONSIVE, ABLE TO MAKE NEEDS KNOWN. A/OX1-2, APPEARS CONFUSED, ON OXYGEN SUPPLEMENTATION AT 2LPM VIA NC, SATURATING WELL. NO NOTED DYSPNEA NOTED AT THIS TIME, BREATHING EVEN. ON ASPIRATION AND FALL PRECAUTIONS. IV ACCESS NOTED ON THE LFA G#22 SALINE LOCKED. ON SOFT RESTRAINT ON ALL EXTREMITIES, CIRCULATION GOOD. SAFETY MEASURES IN PLACE: BED IN LOWEST AND LOCKED POSITION, SIDE RAILS UP X 3 ALL THE TIME, BED ALARM ON, VISUAL CHECKS HOURLY, CALL LIGHT AND TRAY TABLE WITHIN EASY REACH.
--- NOTE | 2023-04-19 08:06 | NUR ---
MS RN NOTES - DISCONTINUED LOWER BILATERAL SOFT RESTRAINTS, PATIENT IS CALM, COOPERATIVE AT THE MOMENT, MD AWARE.
[2023-04-19] MEDS: LOSARTAN POTASSIUM 50 MG TABLET PO SCH ×2 (09:00→09:39)
[2023-04-19] MEDS: METOPROLOL TARTRATE 25 MG TABLET PO SCH ×2 (09:00→17:00)
[2023-04-19] MEDS: METFORMIN 500 MG TABLET PO SCH ×2 (09:39→18:16)
[2023-04-19] MEDS: OLANZAPINE 5 MG TABLET PO SCH ×3 (09:39→18:16)
[2023-04-19] MEDS: FAMOTIDINE (20 MG) 20 MG TABLET PO SCH ×2 (09:39→18:17)
[2023-04-19] MEDS: LEVETIRACETAM (250 MG) 250 MG TABLET PO SCH ×2 (09:39→18:17)
[2023-04-19] MEDS: VALPROIC ACID 250 MG/5 ML UDC PO SCH ×3 (09:39→18:16)
[2023-04-19] MEDS: FERROUS SULFATE (325 MG) 325 MG/TAB TABLET PO SCH (09:39)
[2023-04-19] MEDS: TAMSULOSIN 0.4 MG CAP.SR.24H PO SCH (09:39)
[2023-04-19] MEDS: BENZTROPINE MESYLATE (1 MG) 1 MG TABLET PO SCH ×2 (09:39→18:18)
[2023-04-19] MEDS: FINASTERIDE (5 MG) 5 MG TABLET PO SCH (09:40)
[2023-04-19] MEDS: ASPIRIN EC 81 MG TABLET.DR PO SCH (09:40)
[2023-04-19] MEDS: MEMANTINE HCL 5 MG TABLET PO SCH ×2 (09:41→18:18)
--- NOTE | 2023-04-19 09:53 | NUR ---
RN NOTES - PERMISSIVE HTN = NO TREATMENT REQUIRED FOR SBP BELOW 180 PER MD. CONTINUE MS LEVEL PER MD.
[2023-04-19] MEDS ORDERED: MAGNESIUM OXIDE 400 MG TABLET PO ONE (10:00)
--- NOTE | 2023-04-19 11:44 | NUR ---
RN NOTES - PATIENT IS AGITATED, STARTED ABOUT 40 MINUTES AGO, PATIENT IS NOT DIRECT-ABLE DESPITE REORIENTATION. PATIENT'S GRASP IS REALLY STRONG, STILL ON BILATERAL SOFT WRIST RESTRAINTS DUE TO FALL RISK. INFORMED MD, AWAITING NEW ORDERS. WILL CONTINUE TO MONITOR.
[2023-04-19 15:30] VITALS: BP 154/90
--- NOTE | 2023-04-19 15:53 | NUR ---
RN NOTES - HOSPITALIST ORDERED ATIVAN 1 MG IVP ONCE FOR AGITATION/ANXIETY, CARRIED OUT
[2023-04-19] MEDS ORDERED: LORAZEPAM INJ 2 MG/ML VIAL IV ONE (16:00)
--- NOTE | 2023-04-19 16:21 | NUR ---
PARTIAL DOSE WASTED AND WITNESSED: ATIVAN 1MG IV.
--- NOTE | 2023-04-19 16:21 | NUR ---
RN NOTES - PATIENT SEVERELY AGITATED EVIDENCED BY TRYING TO GET OUT BED, SCREAMING, PATIENT ISNT REDIRECTABLE. GIVEN 1 MG ATIVAN IVP ORDERED BY . WASTE WITNESSED BY CHARLENE THOMAS. WILL CONTINUE TO MONITOR.
[2023-04-19] MEDS: RIVAROXABAN 10 MG TABLET PO SCH (18:17)
--- NOTE | 2023-04-19 19:26 | NUR ---
RN MS CLOSING NOTES PT ASLEEP IN BED WITH HOB SLIGHTLY ELEVATED, EASILY AROUSABLE, RESPONSIVE, ABLE TO MAKE NEEDS KNOWN. A/OX1-2, STILL ON OXYGEN SUPPLEMENTATION AT 2LPM VIA NC, SATURATING WELL BREATHING WITHOUT DIFFICULT. STILL WITH IV ACCESS NOTED ON THE LFA G#22 SALINE LOCKED. MAINTAINED ON SOFT RESTRAINT ON BILATERAL WRIST, CIRCULATION GOOD. KEPT SAFE, ALL DUE MEDS GIVEN, ALL NEEDS MET. SAFETY MEASURES MAINTAINED: BED IN LOWEST AND LOCKED POSITION, SIDE RAILS UP X 3 ALL THE TIME, BED ALARM ON, VISUAL CHECKS DONE HOURLY. ENDORSED TO DELINQUENT TAX COLLECTOR NURSE
--- NOTE | 2023-04-19 19:50 | NUR ---
MS RN OPENING NOTES RECEIVED PATIENT ASLEEP IN BED WITH HOB SLIGHTLY ELEVATED. EASILY AWAKEN BY VERBAL STIMULI. PATIENT IS RESPONSIVE. A/O X 2, ABLE TO MAKE NEEDS KNOWN. PATIENT ON 2LPM OXYGEN VIA NC, BREATHING EVEN AND UNLABORED, NO DISTRESS OR SOB NOTED. NO S/S OF PAIN NOTED AT THIS TIME. IV ACCESS LFA #22G ON SALINE LOCK, INTACT AND PATENT. ON BILATERAL SOFT WRIST RESTRAINT, GOOD CIRCULATION. SAFETY MEASURES IN PLACEWITH BED IN LOWEST AND LOCKED POSITION. SIDE RAILS UP X 4. CALL LIGHT AND TRAY WITHIN EASY REACH. BED ALARM ON. WILL CONTINUE TO MONITOR THE PATIENT.
[2023-04-19 20:00] VITALS: BP 142/94
[2023-04-19] MEDS: ATORVASTATIN 40 MG TABLET PO SCH (22:10)
[2023-04-19] MEDS: TRAZODONE 50 MG TABLET PO SCH (22:10)
[2023-04-19] MEDS: DONEPEZIL 5 MG TABLET PO SCH (22:10)
--- NOTE | 2023-04-20 07:26 | NUR ---
MS RN CLOSING NOTES PATIENT ASLEEP IN BED WITH HOB SLIGHTLY ELEVATED. EASILY AWAKEN BY VERBAL STIMULI. PATIENT IS RESPONSIVE. A/O X 2-3, ABLE TO MAKE NEEDS KNOWN. PATIENT ON 2LPM OXYGEN VIA NC, BREATHING EVEN AND UNLABORED, NO DISTRESS OR SOB NOTED. NO S/S OF PAIN NOTED AT THIS TIME. IV ACCESS LFA #22G ON SALINE LOCK, INTACT AND PATENT. ON BILATERAL SOFT WRIST RESTRAINT, GOOD CIRCULATION. SAFETY MEASURES MAINTAINED DURING SHIFT. WILL ENDORSE TO THE AM NURSE FOR EFFIE.
--- NOTE | 2023-04-20 07:30 | NUR ---
MS RN OPENING NOTES RECEIVED PATIENT RESTING ON BED WITH HOB SLIGHTLY ELEVATED. EASILY AWAKEN BY VERBAL STIMULI, RESPONSIVE AND A/O X 2-3, ABLE TO MAKE NEEDS KNOWN. ON O2 AT 2LPM VIA NASAL CANNULA TOLERATING WELL. NO SOB NOTED. NOT IN DISTRESS. WITH IV ACCESS AT THE LEFT FOREARM G22, SALINE LOCK, INTACT AND PATENT. ON BILATERAL SOFT WRIST RESTRAINT WITH GOOD CIRCULATION NOTED. SAFETY MEASURES IN PLACED. CALL LIGHT WITHIN REACH. BED ON LOWEST LOCKED POSITION, SIDE RAILS UP X2. WILL CONTINUE TO MONITOR.
[2023-04-20 08:00] VITALS: BP 134/88
[2023-04-20] MEDS: METOPROLOL TARTRATE 25 MG TABLET PO SCH ×2 (09:00→18:02)
[2023-04-20] MEDS: ASPIRIN EC 81 MG TABLET.DR PO SCH (10:05)
[2023-04-20] MEDS: FAMOTIDINE (20 MG) 20 MG TABLET PO SCH ×2 (10:05→18:00)
[2023-04-20] MEDS: BENZTROPINE MESYLATE (1 MG) 1 MG TABLET PO SCH ×2 (10:05→18:00)
[2023-04-20] MEDS: VALPROIC ACID 250 MG/5 ML UDC PO SCH ×3 (10:05→17:59)
[2023-04-20] MEDS: TAMSULOSIN 0.4 MG CAP.SR.24H PO SCH (10:06)
[2023-04-20] MEDS: LEVETIRACETAM (250 MG) 250 MG TABLET PO SCH ×2 (10:06→18:00)
[2023-04-20] MEDS: FINASTERIDE (5 MG) 5 MG TABLET PO SCH (10:06)
[2023-04-20] MEDS: FERROUS SULFATE (325 MG) 325 MG/TAB TABLET PO SCH (10:06)
[2023-04-20] MEDS: METFORMIN 500 MG TABLET PO SCH ×2 (10:06→18:00)
[2023-04-20] MEDS: OLANZAPINE 5 MG TABLET PO SCH ×3 (10:08→18:00)
[2023-04-20] MEDS: MEMANTINE HCL 5 MG TABLET PO SCH ×2 (10:08→18:00)
[2023-04-20] MEDS: LOSARTAN POTASSIUM 50 MG TABLET PO SCH (10:12)
[2023-04-20] MEDS ORDERED: LORAZEPAM INJ 2 MG/ML VIAL IV PRN (11:00)
[2023-04-20 16:00] VITALS: BP 153/90
[2023-04-20] MEDS: RIVAROXABAN 10 MG TABLET PO SCH (18:12)
--- NOTE | 2023-04-20 18:30 | NUR ---
MS RN CLOSING NOTES PATIENT ON BED WITH HOB SLIGHTLY ELEVATED AND A/O X 2-3, ABLE TO MAKE NEEDS KNOWN. ON O2 AT 2LPM VIA NASAL CANNULA TOLERATING WELL. NO SOB NOTED. NOT IN DISTRESS. WITH IV ACCESS AT THE LEFT FOREARM G22, SALINE LOCKED, INTACT AND PATENT. ON BILATERAL SOFT WRIST RESTRAINT WITH GOOD CIRCULATION NOTED. DUE MEDS GIVEN. SAFETY MEASURES IN PLACED. CALL LIGHT WITHIN REACH. BED ON LOWEST LOCKED POSITION, SIDE RAILS UP X2. WILL ENDORSE TO NEXT SHIFT FOR EFFIE.
--- NOTE | 2023-04-20 19:30 | NUR ---
MS RN OPENING NOTES RECEIVED PT ON BED WITH HOB SLIGHTLY ELEVATED. A/O X1, ORIENTED TO PERSON ONLY, ABLE TO VERBALIZE SOME NEEDS BUT UNABLE TO UNDERSTAND SOME WORDS DUE TO GARBLED SPEECH. ON O2 AT 2LPM VIA NASAL CANNULA TOLERATING WELL. NO SOB NOTED. NOT IN DISTRESS. WITH IV ACCESS AT THE LEFT FOREARM G22, SALINE LOCKED, INTACT AND PATENT. ON BILATERAL SOFT WRIST RESTRAINT WITH GOOD CIRCULATION NOTED. SAFETY MEASURES IN PLACE: CALL LIGHT WITHIN REACH, BED ON LOWEST LOCKED POSITION, SIDE RAILS UP X2. WILL CONTINUE TO MONITOR AND ASSIST.
[2023-04-20 20:00] VITALS: BP 163/96
--- NOTE | 2023-04-20 20:23 | NUR ---
RN NOTE: BP 163/96, HR 60. NO MEDS GIVEN DUE TO PERMISSIVE HTN UP TO 180 SBP.
[2023-04-20] MEDS: ATORVASTATIN 40 MG TABLET PO SCH (21:21)
[2023-04-20] MEDS: TRAZODONE 50 MG TABLET PO SCH (21:21)
[2023-04-20] MEDS: DONEPEZIL 5 MG TABLET PO SCH (21:21)
--- NOTE | 2023-04-21 05:06 | NUR ---
RN NOTE: PT COMFORTABLY SLEEPING AT THIS TIME AND HAS BEEN SINCE 0130. WAS RESTLESS/AGITATED SINCE START OF SHIFT, PT KEPT SAYING "I NEED TO GET OUT OF THIS BED". EXPLAINED TO PATIENT THAT HE NEEDS TO STAY TO GET BETTER AND THAT WE DONT WANT HIM TO FALL, PT NODS TO SHOW UNDERSTANDING BUT WILL LATER TRY TO GET OUT AGAIN. GIVEN FOOD/WATER MULTIPLE TIMES PER REQUEST, MADE COMFORTABLE, REDIRECTED, PROVIDED DISTRACTION, PT STAYED RESTLESS. CHANGED THE SHEETS AROUND 0100 THEN FELL ASLEEP RIGHT AFTER. NEUROCHECK PERFORMED AT THIS TIME, NO CHANGES FROM LAST ASSESSMENT.
--- NOTE | 2023-04-21 06:44 | NUR ---
MS RN CLOSING NOTES PT ON BED WITH HOB SLIGHTLY ELEVATED, SLEEPING AT THIS TIME, EASILY AROUSABLE. A/O X1, ORIENTED TO PERSON ONLY, ABLE TO VERBALIZE SOME NEEDS BUT UNABLE TO UNDERSTAND SOME WORDS DUE TO UNCLEAR SPEECH. STABLE ON O2 AT 2LPM VIA NASAL CANNULA TOLERATING WELL. NO SOB NOTED. NOT IN DISTRESS. WITH IV ACCESS AT THE LEFT FOREARM G22, SALINE LOCKED, INTACT AND PATENT. ON BILATERAL SOFT WRIST RESTRAINT, CIRCULATION ASSESSED REGULARLY, WNL. ALL CARE PROVIDED AND MEDS TOLERATED WELL. SAFETY MEASURES MAINTAINED: CALL LIGHT WITHIN REACH, BED ON LOWEST LOCKED POSITION, SIDE RAILS UP X2. WILL ENDORSE EFFIE TO DAY SHIFT NURSE.
[2023-04-21 07:00] VITALS: BP 148/85
--- NOTE | 2023-04-21 07:39 | NUR ---
MS RN OPENING NOTE RECEIVED PATIENT RESTING ON BED WITH HOB SLIGHTLY ELEVATED. EASILY AWAKEN BY VERBAL STIMULI, RESPONSIVE AND A/O X 2-3, ABLE TO MAKE NEEDS KNOWN. ON O2 AT 2LPM VIA NASAL CANNULA TOLERATING WELL. NO SOB NOTED. NOT IN DISTRESS. WITH IV ACCESS AT THE LFA G22, SALINE LOCK, INTACT, PATENT, AND INFUSING WELL. ON BILATERAL SOFT WRIST RESTRAINT WITH GOOD CIRCULATION NOTED. SAFETY MEASURES IN PLACED. CALL LIGHT WITHIN REACH. BED ON LOWEST LOCKED POSITION, SIDE RAILS UP X2. WILL CONTINUE TO MONITOR PATIENT THROUGHOUT THE SHIFT.
[2023-04-21] MEDS: VALPROIC ACID 250 MG/5 ML UDC PO SCH ×3 (08:18→16:08)
[2023-04-21] MEDS: METFORMIN 500 MG TABLET PO SCH ×2 (08:18→16:10)
[2023-04-21] MEDS: BENZTROPINE MESYLATE (1 MG) 1 MG TABLET PO SCH ×2 (08:18→16:09)
[2023-04-21] MEDS: TAMSULOSIN 0.4 MG CAP.SR.24H PO SCH (08:18)
[2023-04-21] MEDS: LEVETIRACETAM (250 MG) 250 MG TABLET PO SCH ×2 (08:18→16:08)
[2023-04-21] MEDS: FERROUS SULFATE (325 MG) 325 MG/TAB TABLET PO SCH (08:18)
[2023-04-21] MEDS: OLANZAPINE 5 MG TABLET PO SCH ×3 (08:19→16:08)
[2023-04-21] MEDS: FINASTERIDE (5 MG) 5 MG TABLET PO SCH (08:19)
[2023-04-21] MEDS: MEMANTINE HCL 5 MG TABLET PO SCH ×2 (08:19→16:08)
[2023-04-21] MEDS: FAMOTIDINE (20 MG) 20 MG TABLET PO SCH ×2 (08:19→16:08)
[2023-04-21] MEDS: ASPIRIN EC 81 MG TABLET.DR PO SCH (08:19)
[2023-04-21] MEDS: METOPROLOL TARTRATE 25 MG TABLET PO SCH ×2 (09:00→16:16)
[2023-04-21] MEDS: LOSARTAN POTASSIUM 50 MG TABLET PO SCH (09:00)
--- NOTE | 2023-04-21 09:00 | NUR ---
RN NOTE: BP 148/85, HR 57. NO MEDS GIVEN DUE TO PERMISSIVE HTN UP TO 180 SBP.
[2023-04-21] MEDS ORDERED: clonazePAM 1 MG TABLET PO PRN (11:00)
[2023-04-21] MEDS: clonazePAM 1 MG TABLET PO SCH ×2 (14:29→16:09)
--- NOTE | 2023-04-21 14:29 | NUR ---
RN NOTE DR. BLANK PEREZ ORDERED 2MG OF CLONAZEPAM. I ONLY TOOK 1MG OF CLONAZEPAM INSTEAD OF 2MG IN THE OMNICELL. CALLED PHARMACY AND SPOKE TO LAUREN ABOUT THE MEDICATION ERROR, SHE TOLD ME TO RETURNED THE MEDICATION AND TAKE ANOTHER 2 TABS. I ALREADY RETURNED THE MEDICATION AND WITNESSED BY CHRISTOPHE LATIF RN.
[2023-04-21] MEDS: HALOPERIDOL 5 MG TABLET PO SCH ×2 (15:13→17:33)
[2023-04-21 16:00] VITALS: BP 151/95
--- NOTE | 2023-04-21 16:16 | NUR ---
RN NOTE: BP 151/95, HR 86. NO MEDS GIVEN DUE TO PERMISSIVE HTN UP TO 180 SBP.
[2023-04-21] MEDS: RIVAROXABAN 10 MG TABLET PO SCH (16:21)
--- NOTE | 2023-04-21 18:24 | NUR ---
MS RN CLOSING NOTES PATIENT AWAKE ON BED WITH HOB SLIGHTLY ELEVATED. A/O X1-2, ABLE TO VERBALIZE SOME NEEDS BUT UNABLE TO UNDERSTAND SOME WORDS DUE TO UNCLEAR SPEECH. STABLE ON O2 AT 2LPM VIA NASAL CANNULA, TOLERATING WELL. NO DISTRESS OR SOB NOTED.WITH IV ACCESS AT THE LEFT FOREARM G22, SALINE LOCKED, INTACT, PATENT AND INFUSING WELL. ON BILATERAL SOFT WRIST RESTRAINT, CIRCULATION ASSESSED REGULARLY, WNL. ALL CARE PROVIDED AND MEDS TOLERATED WELL. SAFETY MEASURES MAINTAINED: CALL LIGHT WITHIN REACH, BED ON LOWEST LOCKED POSITION, SIDE RAILS UP X2. WILL ENDORSE TO THE FUR GRADER NURSE FOR EFFIE.
--- NOTE | 2023-04-21 19:00 | NUR ---
RN OPENING NOTE RECEIVED PT AWAKE IN BED. PT IS A/OX1-2. PT IS IN 2L O2 INHALATION VIA NASAL CANNULA, TOLERATING WELL, BREATHING EVEN AND UNLABORED @ THIS TIME. PT IV PRESENT ON THE LEFT FOREARM #22G, PATENT, INTACT AND FLUSHES WELL W/ NO S&SX OF INFILTRATION @ SITE NOTED. SAFETY MEASURES IN PLACE. BED IN LOWEST & LOCKED POSITION. SIDE RAILS UP X 4. BEDSIDE TABLE & CALL LIGHT IS EASY REACH. BED ALARM IS ON. WILL CONTINUE TO MONITOR PT ACCORDINGLY.
[2023-04-21 20:00] VITALS: BP 159/111
[2023-04-21] MEDS: TRAZODONE 50 MG TABLET PO SCH (21:13)
[2023-04-21] MEDS: DONEPEZIL 5 MG TABLET PO SCH (21:14)
[2023-04-21] MEDS: ATORVASTATIN 40 MG TABLET PO SCH (21:14)
--- NOTE | 2023-04-22 06:41 | NUR ---
RN CLOSING NOTE PT AWAKE & RESTING COMFORTABLY IN BED. PT IS A/OX1-2. PT IS IN 2L O2 INHALATION VIA NASAL CANNULA, W/ NO S&SX OF INFILTRATION @ SITE NOTED. PT IV PRESENT ON THE LEFT FOREARM #22G, PATENT, INTACT AND FLUSHES WELL W/ NO S&SX OF INFILTRATION @ SITE NOTED. SAFETY MEASURES IN PLACE. BED IN LOWEST & LOCKED POSITION. SIDE RAILS UP X 2. BEDSIDE TABLE & CALL LIGHT IS EASY REACH. BED ALARM IS ON. WILL ENDORSE PT TO THE NEXT SHIFT FOR EFFIE.
--- NOTE | 2023-04-22 07:46 | NUR ---
MS RN OPENING NOTE (DAY SHIFT) RECEIVED PATIENT RESTING ON BED WITH HOB SLIGHTLY ELEVATED. EASILY AWAKEN BY VERBAL STIMULI, RESPONSIVE AND A/O X 2-3, ABLE TO MAKE NEEDS KNOWN. ON O2 AT 2LPM VIA NASAL CANNULA TOLERATING WELL. NO SOB NOTED. NOT IN DISTRESS. WITH IV ACCESS AT THE LFA #22G, SALINE LOCKED, INTACT, PATENT, AND FLUSHED WELL WITHOUT ANY SIGNS OF COMPLICATIONS OF IV THERAPY. SEIZURE PRECAUTIONS IMPLEMENTED WITH BED SIDE RAILS PADDED WITH BLANKETS AND SUCTION EQUIPMENT AT BEDSIDE. SAFETY MEASURES IMPLEMENTED. CALL LIGHT WITHIN REACH. BED ON LOWEST LOCKED POSITION, SIDE RAILS UP X 2. WILL CONTINUE TO MONITOR AND CARE FOR PATIENT THROUGHOUT THE SHIFT PER HOSPITALIST'S POC.
[2023-04-22 08:00] VITALS: BP 150/86
[2023-04-22] MEDS ORDERED: HALO5TAB8 PO (08:06)
[2023-04-22] MEDS ORDERED: RIVA10TA PO (08:06)
[2023-04-22] MEDS ORDERED: CLON1TAB12 PO (08:06)
[2023-04-22] MEDS ORDERED: AMLODIPINE BESYLATE 10 MG TABLET PO SCH (09:00)
[2023-04-22] MEDS: ASPIRIN EC 81 MG TABLET.DR PO SCH (09:33)
[2023-04-22] MEDS: BENZTROPINE MESYLATE (1 MG) 1 MG TABLET PO SCH (09:33)
[2023-04-22] MEDS: VALPROIC ACID 250 MG/5 ML UDC PO SCH (09:34)
[2023-04-22] MEDS: FERROUS SULFATE (325 MG) 325 MG/TAB TABLET PO SCH (09:34)
[2023-04-22] MEDS: METFORMIN 500 MG TABLET PO SCH (09:34)
[2023-04-22] MEDS: TAMSULOSIN 0.4 MG CAP.SR.24H PO SCH (09:34)
[2023-04-22] MEDS: LOSARTAN POTASSIUM 50 MG TABLET PO SCH (09:34)
[2023-04-22] MEDS: LEVETIRACETAM (250 MG) 250 MG TABLET PO SCH (09:35)
[2023-04-22] MEDS: HALOPERIDOL 5 MG TABLET PO SCH (09:35)
[2023-04-22] MEDS: clonazePAM 1 MG TABLET PO SCH (09:36)
[2023-04-22 09:37] VITALS: BP 150/86
[2023-04-22] MEDS: MEMANTINE HCL 5 MG TABLET PO SCH (09:37)
[2023-04-22] MEDS: FINASTERIDE (5 MG) 5 MG TABLET PO SCH (09:37)
[2023-04-22] MEDS: FAMOTIDINE (20 MG) 20 MG TABLET PO SCH (09:37)
[2023-04-22] MEDS: METOPROLOL TARTRATE 25 MG TABLET PO SCH (09:37)
[2023-04-22] MEDS: OLANZAPINE 5 MG TABLET PO SCH (09:38)
--- NOTE | 2023-04-22 13:17 | NUR ---
MS HOME HEALTH SCHEDULER BACK TO SNF NOTE (DAY SHIFT) Phone report given to receiving nurse, Robin, of [facility]. Verbal report given to ambulance EMT staff. Peripheral IV catheter removal fully intact, tolerated well by patient and showed no signs of complications of IV therapy. Patient departed [facility] via gurney to ambulance bound for [facility] at 13:10 hours.
== END 2023-04-22 13:00 | DRG 64 ==
LOC: ER 10:29 → TELE 15:46 → MED 04-18 15:55
PROVIDERS: ADMIT Internal Medicine; ATTEND Nurse Practitioner Acute Care
DX: I63.81 Other cerebral infarction due to occlusion or stenosis of small artery (principal); G93.41 Metabolic encephalopathy; N17.0 Acute kidney failure with tubular necrosis; I21.A1 Myocardial infarction type 2; F03.94 Unspecified dementia, unspecified severity, with anxiety; F03.93 Unspecified dementia, unspecified severity, with mood disturbance; F05 Delirium due to known physiological condition; K21.9 Gastro-esophageal reflux disease without esophagitis; N40.0 Benign prostatic hyperplasia without lower urinary tract symptoms; I16.0 Hypertensive urgency; I10 Essential (primary) hypertension; G40.909 Epilepsy, unspecified, not intractable, without status epilepticus; Z79.4 Long term (current) use of insulin; Z79.51 Long term (current) use of inhaled steroids; Z79.82 Long term (current) use of aspirin; Z79.84 Long term (current) use of oral hypoglycemic drugs; Z79.01 Long term (current) use of anticoagulants; F20.9 Schizophrenia, unspecified; D50.9 Iron deficiency anemia, unspecified; Z86.74 Personal history of sudden cardiac arrest; Z78.1 Physical restraint status; Z79.899 Other long term (current) drug therapy; E11.9 Type 2 diabetes mellitus without complications; F32.9 Major depressive disorder, single episode, unspecified; F41.9 Anxiety disorder, unspecified; F29 Unspecified psychosis not due to a substance or known physiological condition; R29.703 NIHSS score 3
CPT/HCPCS: 36415; 70450-TC; 70496-TC; 70498-TC; 71045-TC; 80048-TC; 80053-TC; 80061-TC; 80076-TC; 80164-TC; 82962-TC; 83690-TC; 83735-TC; 84100-TC; 84484-TC; 85025-TC; 87040-TC; 87081-TC; 87086-TC; 92526; 92611-TC; 93880-TC; 97110-TC; 97116-TC; 97530-TC; G0378; J0360; J1650; J1953; J2060; J7030; J7050; Q9967

== ENCOUNTER 2023-05-06 11:52 | Inpatient (IN) | payer OTHER, MEDICARE ==
[~2023-05-06] VITALS: Ht 172.7 cm; Wt 75.3 kg
[~2023-05-06 11:52] MED LIST changes: +AMIN30LI27 PO; -APIX5TAB PO; +ASPI-1169 PO; -ASPI-1420 PO; -CEFE2PIG2 IV; +CLON1TAB12 PO; +HALO5TAB8 PO; -INSU100V11 SQ; +INSU3INS8 SQ; +RIVA10TA PO
--- NOTE | 2023-05-06 12:00 | NUR ---
CONNOR RA 86 FROM [facility] FOR LOW O2SAT
[2023-05-06 12:55] LABS: CALCIUM, SERUM 9.4 mg/dL (8.5-10.1); CARBON DIOXIDE 28 mmol/L (21-32); CHLORIDE 106 mmol/L (98-107); GLUCOSE 104 mg/dL (74-106); SODIUM SERUM 141 mmol/L (136-145); UREA NITROGEN, BLOOD 13 mg/dL (7-18)
[2023-05-06 13:12] LABS: ALANINE AMINOTRANSFERASE 22 U/L (12-78); ALBUMIN 2.9 g/dL (3.4-5.0); ALKALINE PHOSPHATASE 114 U/L (46-116); ASPARTATE AMINOTRANSFERASE 15 U/L (15-37); BILIRUBIN,DIRECT 0.1 mg/dL (0.0-0.2); BILIRUBIN,TOTAL 0.2 mg/dL (0.2-1.0); TOTAL PROTEIN, SERUM 8.5 g/dL (6.4-8.2)
[2023-05-06 13:17] LABS: BASOPHILS % (AUTO) 0.7 % (0.0-2.0); EOSINOPHILS % (AUTO) 4.1 % (0.0-6.0); HEMATOCRIT 37 % (39-51); HEMOGLOBIN 11.7 g/dL (13.5-17.5); LYMPHOCYTES # (AUTO) 1.5 K/uL (0.8-4.8); LYMPHOCYTES % (AUTO) 28.8 % (20.0-44.0); MEAN CORPUSCULAR HGB CONC 32 g/dl (31.0-36.0); MEAN CORPUSCULAR VOLUME 78 fL (80-96); MONOCYTES # (AUTO) 0.5 K/uL (0.1-1.30); MONOCYTES % (AUTO) 8.6 % (2.0-12.0); NEUTROPHILS % (AUTO) 57.8 % (43.0-81.0); PLATELET COUNT (AUTO) 208 K/uL (150-450); RED BLOOD CELL COUNT(AUTO) 4.76 MIL/uL (4.5-6.0); WHITE BLOOD COUNT (AUTO) 5.2 K/uL (4.3-11.0)
[2023-05-06] MEDS ORDERED: ASPIRIN 325 MG TABLET PO ONE (13:30)
[2023-05-06] MEDS ORDERED: ASPIRIN 325 MG TABLET ONE (13:33)
--- NOTE | 2023-05-06 14:13 | NUR ---
NO PO MEDS , PATIENT IS HIGH RISK FOR ASPIRATION. MD AWARE
--- NOTE | 2023-05-06 14:18 | NUR ---
BED GIVEN 326-1
[2023-05-06] MEDS ORDERED: Z GUARD REMEDY 4 OZ OINT TP PRN (14:30)
[2023-05-06] MEDS: ENOXAPARIN SODIUM 40 MG/0.4 ML DISP.SYRIN SQ SCH (14:30)
[2023-05-06] MEDS ORDERED: MAGNESIUM HYDROXIDE 30 ML UDC PO PRN (14:30)
[2023-05-06] MEDS ORDERED: ACETAMINOPHEN 325 MG TABLET PO PRN (14:30)
[2023-05-06] MEDS ORDERED: ZOLPIDEM TARTRATE 5 MG TABLET PO PRN (14:30)
[2023-05-06] MEDS ORDERED: ONDANSETRON HCL/PF 4 MG/2 ML VIAL IVP PRN (14:30)
[2023-05-06] MEDS ORDERED: MAG HYDROX/AL HYDROX/SIMETH 30 ML UDC PO PRN (14:30)
--- NOTE | 2023-05-06 14:54 | NUR ---
TALK TO RN MARVIN REGARDING BED REPORT,SHE TOLD SHE WILL CONFIRM WITH HER CHARGE NURSE BEFORE ACCEPTING THE PATIENT AND CALL BACK.
--- NOTE | 2023-05-06 15:46 | NUR ---
MOVED TO INPATIENT ROOM SAFELY PER ACLS PROTOCOL
[2023-05-06 16:00] VITALS: BP 169/98; TEMP 98
--- NOTE | 2023-05-06 16:00 | NUR ---
FERMENTATION ENGINEER NOTE RECEIVED PATIENT FROM ER VIA GURNEY. PATIENT IS A/O X2. PATIENT ORIENTED TO ROOM AND HOW TO USE THE CALL LIGHT. ON ROOM AIR BREATHING AN UNLABORED. WITH IV ACCESS ON RIGHT FOOT #20G SL, INTACT, PATENT AND FLUSHING WELL. VS TAKEN FOLLOWS BP 169/98, HR 48, O2 SATURATION OF 100 AND TEMP OF 98. SKIN ASSESSMENT DONE WITH SCABS NOTED ON BILATERAL LEGS. PHOTOS TAKEN AND PLACED IN CHART. FALL AND SAFETY MEASURES IN PLACE AND MAINTAINED AT ALL TIMES, BED ALARM ON, BED IN LOW AND LOCK POSITION, CALL LIGHT AND TABLE WITHIN EASY REACH, SIDE RAILS UP X2. WILL CONTINUE TO MONITOR THE PATIENT.
--- NOTE | 2023-05-06 16:30 | NUR ---
RN NOTE PATIENT'S BP IS 169/98. INFORMED HYDRALAZINE 10MG IV ORDERED AROUND 1830. NOTED AND CARRIED OUT. WILL CONTINUE TO MONITOR THE PATIENT
[2023-05-06] MEDS ORDERED: hydrALAZINE HCL IV 20 MG VIAL IV PRN (18:30)
[2023-05-06] MEDS: hydrALAZINE HCL IV 20 MG VIAL IV PRN (19:01)
--- NOTE | 2023-05-06 19:15 | NUR ---
CO FOUNDER AND CHAIRMAN NOTES SR-70 ON TELE MONITOR,ON BED SLEEPING,AROUSABLE TO VERBAL STIMULI,BREATHING NORMAL.NOT IN ANY FORM OF DISTRESS.SALINE LOCK RIGHT LOWER LEG INTACT AND PATENT.FALL PRECAUTION OBSERVED,BED ON LOWEST POSITION AND LOCKED.FREQUENT CHECKED INITIATED.
--- NOTE | 2023-05-06 19:30 | NUR ---
CONTRACT COORDINATOR NOTES AWAKE,TRYING TO JUMP OUT OF BED,ON BED ALARM.REPOSITION TO COMFORT.
--- NOTE | 2023-05-06 19:30 | NUR ---
FLATBED DRIVER CLOSING NOTES PATIENT AWAKE IN BED RESTING. A/O X2. NO S/S OF PAIN NOTED AT THIS TIME. ON ROOM AIR, BREATHING EVEN AND UNLABORED, NO DISTRESS OR SOB NOTED. IV ACCESS RIGHT FOOT #20G SL, INTACT, PATENT AND FLUSHING WELL. ATTACHED TO EXTERNAL PLAYGROUND WORKER WITH READING OF SINUS RHYTHM WITH HR OF 61, NO CARDIAC DISTRESS NOTED. FALL AND SAFETY MEASURES IN PLACE AND MAINTAINED AT ALL TIMES, BED ALARM ON, BED IN LOW AND LOCK POSITION, CALL LIGHT AND TABLE WITHIN EASY REACH, SIDE RAILS UP X2. WILL ENDORSE TO CADDIE SUPERVISOR NURSE
[2023-05-06 20:00] VITALS: BP_SYST 140; BP_SYST 154; BP_DIAS 81; BP_DIAS 87; TEMP 100.8; TEMP 97.8
--- NOTE | 2023-05-06 20:50 | NUR ---
SENIOR DATA WAREHOUSE DEVELOPER NOTES ACUTE MEDICAL RESTRAINTS STARTED FOR SAFETY WITH ORDER BY HOSPITALIST STUDIO DESIGNER BLANK TRIPATHI DNP.
--- NOTE | 2023-05-06 21:25 | NUR ---
SURFACE GRINDING MACHINE HAND NOTES RELAYED BY LAB,THIRD TROPONIN WAS 101,HOSPITALIST BLANK TRIPATHI MADE AWARE,NNO NEW ORDER
[2023-05-07] VITALS: BP 163/79; TEMP 97.7
[2023-05-07] MEDS ORDERED: CLONIDINE HCL 0.1 MG TABLET PO PRN ×2 (01:00→09:30)
[2023-05-07 04:00] VITALS: BP 163/93; TEMP 97.9
--- NOTE | 2023-05-07 06:46 | NUR ---
CAR WASH SUPERVISOR NOTES AWAKE,ALERT,CONFUSED,RESTRAINTS IN USED ORDERED.STILL TRYING TO GET OUT OF BED,FALL RISK,BED ALARM,IN NO ACUTE DISTRESS.
[2023-05-07 06:49] LABS: BASOPHILS % (AUTO) 0.8 % (0.0-2.0); EOSINOPHILS % (AUTO) 3.6 % (0.0-6.0); HEMATOCRIT 41 % (39-51); LYMPHOCYTES # (AUTO) 1.4 K/uL (0.8-4.8); LYMPHOCYTES % (AUTO) 30.4 % (20.0-44.0); MEAN CORPUSCULAR HGB CONC 32 g/dl (31.0-36.0); MEAN CORPUSCULAR VOLUME 78 fL (80-96); MONOCYTES # (AUTO) 0.3 K/uL (0.1-1.30); MONOCYTES % (AUTO) 7.5 % (2.0-12.0); NEUTROPHILS # (AUTO) 2.7 K/uL (1.8-8.9); NEUTROPHILS % (AUTO) 57.7 % (43.0-81.0); PLATELET COUNT (AUTO) 274 K/uL (150-450); RED BLOOD CELL COUNT(AUTO) 5.25 MIL/uL (4.5-6.0); WHITE BLOOD COUNT (AUTO) 4.6 K/uL (4.3-11.0)
[2023-05-07 07:16] LABS: CALCIUM, SERUM 9.7 mg/dL (8.5-10.1); CREATININE 0.9 mg/dL (0.6-1.3); MAGNESIUM 1.7 mg/dL (1.8-2.4); PHOSPHORUS 2.2 mg/dL (2.5-4.9); POTASSIUM 3.4 mmol/L (3.5-5.1)
[2023-05-07] MEDS ORDERED: PANTOPRAZOLE 40 MG TABLET.DR PO SCH (07:30)
--- NOTE | 2023-05-07 07:30 | NUR ---
DISPLAY TRIMMER OPENING NOTES RECEIVED PATIENT AWAKE, RESTING IN BED. A/O X1. NO S/S OF PAIN NOTED AT THIS TIME. ON2l O2 VIA NC, BREATHING EVEN AND UNLABORED, NO DISTRESS OR SOB NOTED. IV ACCESS RIGHT FOOT #20G SL, INTACT, PATENT AND FLUSHING WELL. ATTACHED TO EXTERNAL DEVELOPMENT SPEC WITH READING OF SINUS RHYTHM WITH HR OF 65, NO CARDIAC DISTRESS NOTED. WITH BILATERAL SOFT WRIST RESTRAINTS. FALL AND SAFETY MEASURES IN PLACE AND MAINTAINED AT ALL TIMES, BED ALARM ON, BED IN LOW AND LOCK POSITION, CALL LIGHT AND TABLE WITHIN EASY REACH, SIDE RAILS UP X2. WILL ADMINISTER ALL DUE MEDS ORDERED. WILL CONTINUE OT MONITOR.
[2023-05-07] MEDS: DOCUSATE SODIUM 100 MG CAPSULE PO SCH ×2 (08:11→18:17)
[2023-05-07] MEDS: LEVETIRACETAM (250 MG) 250 MG TABLET PO SCH ×2 (08:11→20:01)
[2023-05-07] MEDS: ASPIRIN 81 MG TAB.CHEW PO SCH (08:11)
[2023-05-07 08:12] VITALS: BP 152/105; TEMP 97.8
[2023-05-07] MEDS: VALPROIC ACID 250 MG/5 ML UDC PO SCH ×3 (08:12→18:17)
[2023-05-07] MEDS: BENZTROPINE MESYLATE (1 MG) 1 MG TABLET PO SCH ×2 (08:12→18:17)
[2023-05-07] MEDS: FERROUS SULFATE (325 MG) 325 MG/TAB TABLET PO SCH (08:12)
[2023-05-07] MEDS: FINASTERIDE (5 MG) 5 MG TABLET PO SCH (08:12)
[2023-05-07] MEDS: OLANZAPINE 5 MG TABLET PO SCH ×3 (08:12→18:17)
[2023-05-07] MEDS: TAMSULOSIN 0.4 MG CAP.SR.24H PO SCH (08:12)
[2023-05-07] MEDS: LOSARTAN POTASSIUM 50 MG TABLET PO SCH (08:13)
[2023-05-07] MEDS: PANTOPRAZOLE 40 MG TABLET.DR PO SCH (08:13)
[2023-05-07] MEDS: MEMANTINE HCL 5 MG TABLET PO SCH ×2 (08:13→18:17)
[2023-05-07] MEDS: METOPROLOL TARTRATE 50 MG TABLET PO SCH ×2 (08:14→18:20)
[2023-05-07] MEDS: FLUOXETINE HCL 20 MG/5 ML UDC PO SCH (08:23)
[2023-05-07] MEDS ORDERED: ASPIRIN 81 MG TAB.CHEW PO SCH (09:00)
[2023-05-07] MEDS: Magnesium 1GM/D5W 100ML PREMIX 100 ML IV SCH ×2 (10:11→14:16)
[2023-05-07] MEDS: IPRATROPIUM NEB FS 0.5 MG/2.5 ML AMPUL.NEB NEB SCH ×3 (10:30→19:30)
--- NOTE | 2023-05-07 14:15 | NUR ---
RN NOTES IV MEDS LATE ADMINISTRATION AWAITING MIDLINE INSERTION.
[2023-05-07] MEDS: POTASSIUM PHOSPHATE MM 7.5 MMOL in IV NS 0.9% 100 ML IV SCH ×2 (15:34→18:20)
[2023-05-07] MEDS: ENOXAPARIN SODIUM 40 MG/0.4 ML DISP.SYRIN SQ SCH (15:35)
[2023-05-07] MEDS: RIVAROXABAN 10 MG TABLET PO SCH (18:18)
--- NOTE | 2023-05-07 19:30 | NUR ---
SUPERVISOR ALTERATION WORKROOM OPENING NOTE RECEIVED PATIENT IN BED, AWAKE, ALERT AND ORIENTED. AGITATED AT THIS TIME. AFEBRILE AND NOT IN ANY FORM OF ACUTE DISTRESS. BREATHING EVEN AND NON LABORED. WITH IV ACCESS ON JEFFERY MIDLINE RUNNING WITH K PHOSPHATE AT 35ML/HR. WITH BILATERAL SOFT WRIST RESTRAINTS, NOTED WITH GOOD CIRCULATION AND INTACT SKIN. SAFETY MEASURES IN PLACE. KEPT BED IN LOCKED AND IN LOW POSITION. SIDE RAILS UP X2. BED ALARM ON. CALL LIGHT WITHIN EASY REACH.
--- NOTE | 2023-05-07 19:47 | NUR ---
OCCUPATIONAL MEDICINE PHYSICIAN CLOSING NOTE PATIENT IN BED, AWAKE, ALERT AND ORIENTED. AGITATED AT THIS TIME. AFEBRILE AND NOT IN ANY FORM OF ACUTE DISTRESS. BREATHING EVEN AND NON LABORED. WITH IV ACCESS ON JEFFERY MIDLINE RUNNING WITH K PHOSPHATE AT 35ML/HR. WITH BILATERAL SOFT WRIST RESTRAINTS, NOTED WITH GOOD CIRCULATION AND INTACT SKIN. SAFETY MEASURES IN PLACE. KEPT BED IN LOCKED AND IN LOW POSITION. SIDE RAILS UP X2. BED ALARM ON. CALL LIGHT WITHIN EASY REACH. WILL ENDORSE TO NEXT SHIFT. ALL DUE MEDS GIVEN ORDERED.
[2023-05-07 20:00] VITALS: BP 156/73; TEMP 97.7
[2023-05-07] MEDS: DONEPEZIL 5 MG TABLET PO SCH (21:23)
[2023-05-07] MEDS: TRAZODONE 50 MG TABLET PO SCH (21:23)
[2023-05-07] MEDS: ATORVASTATIN 40 MG TABLET PO SCH (21:23)
[2023-05-08] VITALS (11 sets, daily range): BP systolic 134–179; BP diastolic 63–100; TEMP 97.4–99.8
[2023-05-08] MEDS: IPRATROPIUM NEB FS 0.5 MG/2.5 ML AMPUL.NEB NEB SCH ×4 (02:29→19:18)
--- NOTE | 2023-05-08 06:30 | NUR ---
ADJUNCT FACULTY INSTRUCTOR CLOSING NOTE PATIENT IN BED, WITH HOB ELEVATED, SLEEPING INTERMITENTLY. AFEBRILE AND NOT IN ANY FORM OF ACUTE DISTRESS. BREATHING EVEN AND NON LABORED. ON TELE MONITORING WITH CURRENT READING OF SR/SB. WITH IV ACCESS ON JEFFERY MIDLINE-SL. WITH BILATERAL SOFT WRIST RESTRAINTS, NOTED WITH GOOD CIRCULATION AND INTACT SKIN. MEDICTED ORDERED. SAFETY MEASURES IN PLACE. KEPT BED IN LOCKED AND IN LOW POSITION. SIDE RAILS UP X2. BED ALARM ON. CALL LIGHT WITHIN EASY REACH. ALL NURSING NEEDS ATTENDED. ENDORSED TO INCOMING SHIFT FOR CONTINUITY OF CARE.
--- NOTE | 2023-05-08 07:29 | NUR ---
SHOEBLACK OPENING NOTE Received patient in bed, asleep, hard to arouse. A/O x 1, confused. No c/o pain/discomfort noted at this time. On O2 via nc at 3LPM, tolerating well. JEFFERY midline #18g, sl. Safety measures maintained: bed in lowest locked position, side rails up x 3, call light and tray table within easy reach. Will continue to monitor. Addendum: 05/08/23 at 1135 by Kassandra Painter RN Addendum: On tele monitor with current reading of SB-48.
[2023-05-08] MEDS: PANTOPRAZOLE 40 MG TABLET.DR PO SCH (07:46)
[2023-05-08] MEDS: LEVETIRACETAM (250 MG) 250 MG TABLET PO SCH ×2 (08:42→21:00)
[2023-05-08] MEDS: VALPROIC ACID 250 MG/5 ML UDC PO SCH ×3 (08:42→16:12)
[2023-05-08] MEDS: BENZTROPINE MESYLATE (1 MG) 1 MG TABLET PO SCH ×2 (08:43→16:11)
[2023-05-08] MEDS: DOCUSATE SODIUM 100 MG CAPSULE PO SCH ×2 (08:43→16:12)
[2023-05-08] MEDS: FERROUS SULFATE (325 MG) 325 MG/TAB TABLET PO SCH (08:43)
[2023-05-08] MEDS: FINASTERIDE (5 MG) 5 MG TABLET PO SCH (08:43)
[2023-05-08] MEDS: TAMSULOSIN 0.4 MG CAP.SR.24H PO SCH (08:43)
[2023-05-08] MEDS: METOPROLOL TARTRATE 50 MG TABLET PO SCH ×2 (08:43→16:12)
[2023-05-08] MEDS: ASPIRIN 81 MG TAB.CHEW PO SCH (08:43)
[2023-05-08] MEDS: MEMANTINE HCL 5 MG TABLET PO SCH ×2 (08:44→16:12)
[2023-05-08] MEDS: LOSARTAN POTASSIUM 50 MG TABLET PO SCH (08:44)
[2023-05-08] MEDS: OLANZAPINE 5 MG TABLET PO SCH ×3 (08:44→16:12)
[2023-05-08] MEDS: FLUOXETINE HCL 20 MG/5 ML UDC PO SCH (08:45)
[2023-05-08 08:57] LABS: BASOPHILS % (AUTO) 0.3 % (0.0-2.0); EOSINOPHILS % (AUTO) 1.9 % (0.0-6.0); HEMATOCRIT 36 % (39-51); HEMOGLOBIN 11.6 g/dL (13.5-17.5); LYMPHOCYTES # (AUTO) 1.6 K/uL (0.8-4.8); LYMPHOCYTES % (AUTO) 18.9 % (20.0-44.0); MEAN CORPUSCULAR HGB CONC 32 g/dl (31.0-36.0); MEAN CORPUSCULAR VOLUME 77 fL (80-96); MONOCYTES # (AUTO) 0.4 K/uL (0.1-1.30); MONOCYTES % (AUTO) 4.5 % (2.0-12.0); NEUTROPHILS # (AUTO) 6.4 K/uL (1.8-8.9); NEUTROPHILS % (AUTO) 74.4 % (43.0-81.0); PLATELET COUNT (AUTO) 270 K/uL (150-450); RED BLOOD CELL COUNT(AUTO) 4.68 MIL/uL (4.5-6.0); WHITE BLOOD COUNT (AUTO) 8.6 K/uL (4.3-11.0)
[2023-05-08 09:06] LABS: CALCIUM, SERUM 9.2 mg/dL (8.5-10.1); CREATININE 0.8 mg/dL (0.6-1.3); POTASSIUM 3.8 mmol/L (3.5-5.1)
--- NOTE | 2023-05-08 09:24 | NUR ---
PATIENT FOUND ON 2 L O2 NC AND IS KEPT ON O2 AT 2L. Addendum: 05/08/23 at 0924 by MARCEL KLEIN RT Amended: Links added.
--- NOTE | 2023-05-08 09:45 | NUR ---
RN NOTE- DR LOPEZ WANTED SWALLOW EVAL. ST STATED PT COULDN'T SWALLOW / DIDN'T PASS . ASPIRATION RISK/ COUGHING. PLACED NPO. DR LOPEZ TO ARRANGE FOR PEG
--- NOTE | 2023-05-08 13:56 | NUR ---
PATIENT WERE FOUND AGITATED, MOVING WITHOUT O2 ON. PATIENT IS NOT IN ANY DISTRESS. Addendum: 05/08/23 at 1357 by MARCEL KLEIN RT Amended: Links added.
[2023-05-08] MEDS: ENOXAPARIN SODIUM 40 MG/0.4 ML DISP.SYRIN SQ SCH (14:30)
[2023-05-08] MEDS ORDERED: IV NS 0.9% 1,000 ML IV PRN (14:30)
--- NOTE | 2023-05-08 14:35 | NUR ---
RN NOTE Lovenox 40mg SQ due at 1430 not given, patient scheduled for surgery.
[2023-05-08] MEDS: RIVAROXABAN 10 MG TABLET PO SCH (16:12)
[2023-05-08] MEDS: hydrALAZINE HCL IV 20 MG VIAL IV PRN (16:49)
--- NOTE | 2023-05-08 16:52 | NUR ---
RN NOTE Rechecked BP-179/100, TN-94, patient is also agitated. Apresoline IV 10mg/0.5ml prn given at 1649. Will continue to monitor.
--- NOTE | 2023-05-08 17:00 | NUR ---
RN NOTE Patient refused BP rechecked.
--- NOTE | 2023-05-08 18:48 | NUR ---
CONTINUITY COORDINATOR CLOSING NOTE Patient went to OR via hospital bed accompanied by 2 Surgery staff. Will endorse to slot shift manager.
--- NOTE | 2023-05-08 19:15 | NUR ---
java software Opening Note Received Pt report from day shift nurse. Pt is still in the OR. Continue waiting for pt to come back to the floor.
--- NOTE | 2023-05-08 20:49 | NUR ---
RN Note Received pt care from PACU nurseJet. Pt was transferred via gurney with no sign of distress at 2036. Pt was sleeping in bed, easily awake by light touch. A/O*2. No s/s of pain noted. On oxygen 2L NC, even unlabored and no SOB noted. IV access left upper arm midline 18G running NS at 75mL/H. Pt bus monitor reading SR at 74bpm, no cardiac distress noted. New G-tube in place, dressing intact, covered by abdominal bind. Dr Herman ordered stat tube feeding in AM. Checked CMS and applied soft restraints on bilateral wrist. V/S recorded stable and recorded. Contacted Dr. Reyes for PM medications. Received order to hold medication for PM. Fall and safety measures in place, bed alarm on, bed in low and locked position, call light in reach, side rails up*4, rails padded by blanket for seizure precaution. Will continue monitoring throughout the night.
[2023-05-08] MEDS: TRAZODONE 50 MG TABLET PO SCH (21:03)
[2023-05-08] MEDS: DONEPEZIL 5 MG TABLET PO SCH (21:03)
[2023-05-08] MEDS: ATORVASTATIN 40 MG TABLET PO SCH (21:04)
[2023-05-09] VITALS: BP 134/88; TEMP 98.1
[2023-05-09 00:12] VITALS: BP 134/88; TEMP 98.1
[2023-05-09] MEDS: IPRATROPIUM NEB FS 0.5 MG/2.5 ML AMPUL.NEB NEB SCH ×3 (04:10→13:48)
[2023-05-09 04:14] VITALS: BP 138/88; TEMP 97.8
[2023-05-09 06:18] LABS: BASOPHILS % (AUTO) 0.2 % (0.0-2.0); EOSINOPHILS % (AUTO) 0.5 % (0.0-6.0); HEMATOCRIT 36 % (39-51); HEMOGLOBIN 11.5 g/dL (13.5-17.5); LYMPHOCYTES # (AUTO) 1.6 K/uL (0.8-4.8); LYMPHOCYTES % (AUTO) 15.3 % (20.0-44.0); MEAN CORPUSCULAR HGB CONC 32 g/dl (31.0-36.0); MEAN CORPUSCULAR VOLUME 78 fL (80-96); MONOCYTES # (AUTO) 0.6 K/uL (0.1-1.30); MONOCYTES % (AUTO) 5.6 % (2.0-12.0); NEUTROPHILS # (AUTO) 8.1 K/uL (1.8-8.9); NEUTROPHILS % (AUTO) 78.4 % (43.0-81.0); PLATELET COUNT (AUTO) 246 K/uL (150-450); RED BLOOD CELL COUNT(AUTO) 4.63 MIL/uL (4.5-6.0); WHITE BLOOD COUNT (AUTO) 10.3 K/uL (4.3-11.0)
--- NOTE | 2023-05-09 06:30 | NUR ---
RN Note Pt did not void during the night auditor. Performed bladder scan, and it showed 490mL. Contacted for advice. Received order of FC insertion and UA.
--- NOTE | 2023-05-09 06:35 | NUR ---
RN Closing Note Pt sleeping in bed, easily awake by light touch. A/O*2, confusion. No s/s of pain noted. On oxygen 2L NC, even unlabored and no SOB noted. IV access left upper arm midline 18G running NS at 75mL/H. Pt night monitor reading Sinus Jean-Paul at 56bpm, no cardiac distress noted. G-tube in place, dressing intact, covered by abdominal bind. Checked CMS and re-applied soft restraints on bilateral Pt turned and repositioned per protocol. All needs attended and anticipated. Motivated to participate in self-care. Fall and safety measures in place and maintained throughout the shift, bed alarm on, bed in low and locked position, call light in reach, side rails up*4, rails padded by blanket for seizure precaution. Will endorse care to day shift.
[2023-05-09 06:50] LABS: CREATININE 0.8 mg/dL (0.6-1.3); POTASSIUM 4.2 mmol/L (3.5-5.1)
[2023-05-09 07:00] VITALS: BP 163/96; TEMP 97.6
--- NOTE | 2023-05-09 07:00 | NUR ---
BUYER TOBACCO HEAD OPENING NOTES RECEIVED PATIENT IN BED, ASLEEP. ON 2L O2 VIA NC, BREATHING EVEN AND UNLABORED, NO DISTRESS OR SOB NOTED. IV ACCESS JEFFERY, MIDLINE, INTACT, PATENT AND INFUSING WELL WITH NS AT 75 ML/HR. ATTACHED TO EXTERNAL PHYSICAL METALLURGIST WITH READING OF SINUS RHYTHM WITH HR OF 65, NO CARDIAC DISTRESS NOTED. PT HAS GTUBE IN PLACED: DRESSING INTACT AND IS COVERED BY ABDOMINAL BINDER, NO RESIDUAL NOTED. WITH BILATERAL SOFT WRIST RESTRAINTS. FALL AND SAFETY MEASURES IN PLACE AND MAINTAINED AT ALL TIMES, BED ALARM ON, BED IN LOW AND LOCK POSITION, CALL LIGHT AND TABLE WITHIN EASY REACH, SIDE RAILS UP X3. NO S/S OF PAIN NOTED AT THIS TIME. WILL CONTINUE MONITORING PT.
[2023-05-09] MEDS ORDERED: GLUCERNA 1.2 1,000 ML BOTTLE NG PRN (08:00)
[2023-05-09] MEDS ORDERED: ASPIRIN 81 MG TAB.CHEW GT SCH (08:10)
[2023-05-09] MEDS ORDERED: BENZTROPINE MESYLATE (1 MG) 1 MG TABLET GT SCH (08:10)
[2023-05-09] MEDS ORDERED: ATORVASTATIN 40 MG TABLET GT SCH (08:10)
[2023-05-09] MEDS ORDERED: CLONIDINE HCL 0.1 MG TABLET GT PRN (08:11)
[2023-05-09] MEDS ORDERED: FINASTERIDE (5 MG) 5 MG TABLET GT SCH (08:13)
[2023-05-09] MEDS ORDERED: FERROUS SULFATE (325 MG) 325 MG/TAB TABLET GT SCH (08:13)
[2023-05-09] MEDS ORDERED: DONEPEZIL 5 MG TABLET GT SCH (08:13)
[2023-05-09] MEDS ORDERED: LOSARTAN POTASSIUM 50 MG TABLET GT SCH (08:14)
[2023-05-09] MEDS ORDERED: FLUOXETINE HCL 20 MG/5 ML UDC GT SCH (08:14)
[2023-05-09] MEDS ORDERED: MAG HYDROX/AL HYDROX/SIMETH 30 ML UDC GT PRN (08:17)
[2023-05-09] MEDS ORDERED: TAMSULOSIN 0.4 MG CAP.SR.24H GT SCH (08:17)
[2023-05-09] MEDS ORDERED: METOPROLOL TARTRATE 50 MG TABLET GT SCH (08:17)
[2023-05-09] MEDS ORDERED: MAGNESIUM HYDROXIDE 30 ML UDC GT PRN (08:17)
[2023-05-09] MEDS ORDERED: MEMANTINE HCL 5 MG TABLET GT SCH (08:17)
[2023-05-09] MEDS ORDERED: TRAZODONE 50 MG TABLET GT SCH (08:17)
[2023-05-09] MEDS ORDERED: RIVAROXABAN 10 MG TABLET GT SCH (08:18)
[2023-05-09] MEDS ORDERED: ACETAMINOPHEN LIQUID 325 MG/10.1 ML UDC GT PRN (08:30)
[2023-05-09] MEDS ORDERED: DOCUSATE SODIUM LIQ 100 MG/10 ML UDC GT SCH (09:00)
[2023-05-09] MEDS ORDERED: LEVETIRACETAM SOL (5 ML) 100 MG/ML UDC GT SCH (09:00)
--- NOTE | 2023-05-09 09:00 | NUR ---
ms rn started on g tube feeding, tolerating well w/o residual, due meds given.
[2023-05-09] MEDS: VALPROIC ACID 250 MG/5 ML UDC GT SCH ×2 (09:18→13:52)
[2023-05-09] MEDS: OLANZAPINE 5 MG TABLET GT SCH ×2 (09:18→13:50)
[2023-05-09] MEDS: PANTOPRAZOLE 40 MG TABLET.DR PO SCH (09:19)
[2023-05-09 12:00] VITALS: BP 150/81; TEMP 97.4
[2023-05-09] MEDS: ENOXAPARIN SODIUM 40 MG/0.4 ML DISP.SYRIN SQ SCH (13:53)
--- NOTE | 2023-05-09 16:00 | NUR ---
ms rn patient transferred to [facility] report given to Susan washington, patient refused to take picture at bilateral knees.
== END 2023-05-09 16:43 | DRG 133 ==
LOC: ER 12:01 → TELE 14:47
PROVIDERS: ADMIT Nurse Practitioner Acute Care; ATTEND Internal Medicine
PROC: 05HC33Z Insertion of Infusion Device into Left Basilic Vein, Percutaneous Approach (ICD-10-PCS; 2023-05-07)
PROC: 0DH63UZ Insertion of Feeding Device into Stomach, Percutaneous Approach (ICD-10-PCS; principal; 2023-05-08)
DX: J96.01 Acute respiratory failure with hypoxia (principal); G93.49 Other encephalopathy; I21.A1 Myocardial infarction type 2; G93.1 Anoxic brain damage, not elsewhere classified; F03.93 Unspecified dementia, unspecified severity, with mood disturbance; F20.9 Schizophrenia, unspecified; E11.9 Type 2 diabetes mellitus without complications; D64.9 Anemia, unspecified; K21.9 Gastro-esophageal reflux disease without esophagitis; Z20.822 Contact with and (suspected) exposure to COVID-19; K29.70 Gastritis, unspecified, without bleeding; G40.909 Epilepsy, unspecified, not intractable, without status epilepticus; Z86.74 Personal history of sudden cardiac arrest; Z86.73 Personal history of transient ischemic attack (TIA), and cerebral infarction without residual deficits; Z79.01 Long term (current) use of anticoagulants; Z79.82 Long term (current) use of aspirin; Z79.51 Long term (current) use of inhaled steroids; Z79.899 Other long term (current) drug therapy; I25.10 Atherosclerotic heart disease of native coronary artery without angina pectoris; Z79.84 Long term (current) use of oral hypoglycemic drugs; R13.10 Dysphagia, unspecified; N40.0 Benign prostatic hyperplasia without lower urinary tract symptoms; I10 Essential (primary) hypertension; F32.9 Major depressive disorder, single episode, unspecified
CPT/HCPCS: 36410; 36415; 43246; 71045-TC; 80048-TC; 80076-TC; 82962-TC; 83605-TC; 83735-TC; 84100-TC; 84484-TC; 85025-TC; 85730-TC; 87040-TC; 87081-TC; 92526; 92611-TC; 94799-TC; A4223; A4349; C9803; G0378; J0360; J1650; J1953; J2704; J3475; J3490; J7030; J7050

== ENCOUNTER 2023-05-24 21:18 | Inpatient (IN) | payer MEDICARE, OTHER ==
[~2023-05-24] VITALS: Ht 182.9 cm; Wt 66.7 kg
[~2023-05-24 21:18] MED LIST changes: +ACET-868 GT; -ACET-868 PO; +ASPI-1169 GT; -ASPI-1169 PO; +ATOR40TA GT; -ATOR40TA PO; +BENZ1TAB7 GT; -BENZ1TAB7 PO; +CHOL100043 GT; -CHOL100043 PO; +CLON0.1T GT; -CLON0.1T PO; +DOCU-141 GT; -DOCU-141 PO; +DONE5TAB34 GT; -DONE5TAB34 PO; +FAMO20TA8 GT; -FAMO20TA8 PO; +FINA5TAB11 GT; -FINA5TAB11 PO; +FLUO40CA49 GT; -FLUO40CA49 PO; +LACT10SO3 GT; -LACT10SO3 PO; +LACT1CAP69 GT; -LACT1CAP69 PO; +LEVE500T9 GT; -LEVE500T9 PO; +LORA-259 GT; -LORA-259 PO; +LOSA100T3 GT; -LOSA100T3 PO; +MAGN400O6 GT; -MAGN400O6 PO; +MEMA10TA GT; -MEMA10TA PO; +METF-440 GT; -METF-440 PO; +METO25TA20 GT; -METO25TA20 PO; +MULT-447 GT; -MULT-447 PO; +OLAN5TAB3 GT; -OLAN5TAB3 PO; +PANT40TA2 GT; -PANT40TA2 PO; +SENN-261 GT; -SENN-261 PO; +TAMS-12 GT; -TAMS-12 PO; +TRAZ-257 GT; -TRAZ-257 PO; +VALP250S4 GT; -VALP250S4 PO
[2023-05-24] MEDS ORDERED: VANCOMYCIN 1 GM in IV D5W 250 ML IV ONE (21:30)
[2023-05-24] MEDS ORDERED: CEFEPIME 1 GM in IV D5W 50 ML IV ONE (21:30)
[2023-05-24 21:53] LABS: ABG BASE EXCESS 5.1 mmol/L; ABG PCO2 43.7 mmHg (35.0-45.0); ABG PH 7.449 (7.350-7.450); ABG PO2 113.8 mmHg (75.0-100.0); COHb 0.3 % (0.5-1.5); MetHb 0.3 % (0.0-1.5); O2Hb 97.4 % (94.0-97.0); SITE, ABG Left Radial; VENT MODE, BG NRB
[2023-05-24 21:55] LABS: BASOPHILS % (AUTO) 0.3 % (0.0-2.0); HEMATOCRIT 31 % (39-51); HEMOGLOBIN 9.9 g/dL (13.5-17.5); LYMPHOCYTES # (AUTO) 1.1 K/uL (0.8-4.8); LYMPHOCYTES % (AUTO) 10.7 % (20.0-44.0); MEAN CORPUSCULAR HGB CONC 32 g/dl (31.0-36.0); MEAN CORPUSCULAR VOLUME 77 fL (80-96); MONOCYTES # (AUTO) 0.5 K/uL (0.1-1.30); MONOCYTES % (AUTO) 4.6 % (2.0-12.0); NEUTROPHILS # (AUTO) 8.6 K/uL (1.8-8.9); NEUTROPHILS % (AUTO) 83.4 % (43.0-81.0); PLATELET COUNT (AUTO) 412 K/uL (150-450); WHITE BLOOD COUNT (AUTO) 10.3 K/uL (4.3-11.0)
[2023-05-24] MEDS ORDERED: IBUPROFEN 600 MG TABLET GT ONE (22:00)
[2023-05-24] MEDS ORDERED: CEFEPIME 1 GM VIAL ONE (22:13)
[2023-05-24] MEDS ORDERED: IBUPROFEN 600 MG TABLET ONE (22:13)
[2023-05-24] MEDS ORDERED: HEPARIN INFUSION/D5W 500 ML IV PRN (22:30)
[2023-05-24] MEDS ORDERED: VANCOMYCIN 1 GM /D5W 250 ML PB IV ONE (22:47)
[2023-05-24 22:48] LABS: CALCIUM, SERUM 8.6 mg/dL (8.5-10.1); CARBON DIOXIDE 31 mmol/L (21-32); CHLORIDE 102 mmol/L (98-107); CREATININE 0.8 mg/dL (0.6-1.3); GLUCOSE 128 mg/dL (74-106); POTASSIUM 3.9 mmol/L (3.5-5.1); SODIUM SERUM 139 mmol/L (136-145); UREA NITROGEN, BLOOD 17 mg/dL (7-18)
[2023-05-24 22:53] LABS: ALANINE AMINOTRANSFERASE 30 U/L (12-78); ALBUMIN 2.5 g/dL (3.4-5.0); ALKALINE PHOSPHATASE 94 U/L (46-116); ASPARTATE AMINOTRANSFERASE 21 U/L (15-37); BILIRUBIN,DIRECT 0.1 mg/dL (0.0-0.2); BILIRUBIN,TOTAL 0.3 mg/dL (0.2-1.0); TOTAL PROTEIN, SERUM 8.1 g/dL (6.4-8.2)
[2023-05-24] MEDS ORDERED: ENOXAPARIN SODIUM 80 MG/0.8 ML DISP.SYRIN SQ ONE (23:00)
[2023-05-24 23:21] LABS: BILIRUBIN,URINE NEGATIVE (NEGATIVE); COLOR,URINE YELLOW (YELLOW); LEUKOCYTE ESTERASE ,URINE NEGATIVE (NEGATIVE); NITRITE, URINE NEGATIVE (NEGATIVE); PH,URINE 8.5 (5.0-8.0); PROTEIN,URINE TRACE mg/dl (NEGATIVE); UGLUCOSE NEGATIVE (NEGATIVE)
[2023-05-25] VITALS (25 sets, daily range): BP systolic 91–171; BP diastolic 61–107; TEMP 97–97.6; O2SAT 96–100
[2023-05-25] MEDS ORDERED: IPRATROPIUM/ALBUTEROL INHALER IH SCH
[2023-05-25] MEDS ORDERED: MORPHINE SULFATE INJ 2 MG/ML DISP.SYRIN IV PRN
[2023-05-25] MEDS ORDERED: LORAZEPAM 1 MG TABLET PO PRN
[2023-05-25] MEDS ORDERED: ALBUTEROL FS 2.5 MG/0.5 ML VIAL.NEB NEB PRN
[2023-05-25] MEDS ORDERED: clonazePAM 1 MG TABLET PO PRN
[2023-05-25] MEDS ORDERED: ONDANSETRON HCL/PF 4 MG/2 ML VIAL IVP PRN
[2023-05-25] MEDS ORDERED: ACETAMINOPHEN 325 MG TABLET PO PRN
[2023-05-25] MEDS ORDERED: Z GUARD REMEDY 4 OZ OINT TP PRN
[2023-05-25] MEDS ORDERED: *INSULIN REGULAR(HUMULIN R)HUM 100 UNIT/ML VIAL SQ PRN
[2023-05-25] MEDS: IV NS 0.9% 1,000 ML IV SCH ×2 (02:33→16:13)
[2023-05-25] MEDS ORDERED: PIPERACI/TAZO 3.375GM/D5W 50ML PB IV ONE (02:47)
[2023-05-25] MEDS ORDERED: ZOSYN IVPB 3.375 G in IV D5W 50ml IV ONE (03:00)
[2023-05-25] MEDS ORDERED: PANTOPRAZOLE 40 MG TABLET.DR PO SCH (07:30)
[2023-05-25] MEDS ORDERED: PHARMACY TO CHANGE PO MEDS TO GT/NG XX PRN (08:30)
[2023-05-25] MEDS ORDERED: ACETAMINOPHEN 650 MG/20.3 ML UDC PO PRN (08:31)
[2023-05-25] MEDS: BLOOD SUGAR DIAGNOSTIC 1 EACH STRIP VI SCH ×2 (08:31→12:23)
[2023-05-25] MEDS: INSULIN REGULAR, HUMAN 100 UNIT/ML 3 ML VIAL SQ PRN ×3 (08:32→17:06)
[2023-05-25] MEDS: VANCOMYCIN 1 GM in IV D5W 250 ML IV SCH ×2 (08:34→20:31)
[2023-05-25] MEDS: LOSARTAN POTASSIUM 50 MG TABLET GT SCH (08:48)
[2023-05-25] MEDS: ASPIRIN 81 MG TAB.CHEW GT SCH (08:50)
[2023-05-25] MEDS: VALPROIC ACID 250 MG/5 ML UDC GT SCH ×3 (08:50→16:18)
[2023-05-25] MEDS: TAMSULOSIN 0.4 MG CAP.SR.24H GT SCH (08:50)
[2023-05-25] MEDS: FERROUS SULFATE (325 MG) 325 MG/TAB TABLET GT SCH ×3 (08:50→16:18)
[2023-05-25] MEDS: HALOPERIDOL 5 MG TABLET GT SCH ×3 (08:50→16:18)
[2023-05-25] MEDS: OLANZAPINE 5 MG TABLET GT SCH ×3 (08:51→16:19)
[2023-05-25] MEDS: BENZTROPINE MESYLATE (1 MG) 1 MG TABLET GT SCH ×2 (08:51→16:19)
[2023-05-25] MEDS: MULTIVITAMINS,THERAGRAN 1 UDTAB TABLET GT SCH (08:52)
[2023-05-25] MEDS: FAMOTIDINE (20 MG) 20 MG TABLET GT SCH ×2 (08:52→16:19)
[2023-05-25] MEDS: ENOXAPARIN SODIUM 60 MG/0.6 ML DISP.SYRIN SQ SCH ×2 (08:54→20:33)
[2023-05-25] MEDS ORDERED: PROSOURCE / PROSTAT (PYXIS) 30 ML UDC PO SCH (09:00)
[2023-05-25] MEDS ORDERED: MEMANTINE HCL 5 MG TABLET PO SCH (09:00)
[2023-05-25] MEDS ORDERED: MULTIVITAMINS,THERAGRAN 1 UDTAB TABLET PO SCH (09:00)
[2023-05-25] MEDS ORDERED: FINASTERIDE (5 MG) 5 MG TABLET PO SCH (09:00)
[2023-05-25] MEDS ORDERED: VALPROIC ACID 250 MG/5 ML UDC PO SCH (09:00)
[2023-05-25] MEDS ORDERED: METOPROLOL TARTRATE 25 MG TABLET PO SCH (09:00)
[2023-05-25] MEDS ORDERED: LOSARTAN POTASSIUM 50 MG TABLET PO SCH (09:00)
[2023-05-25] MEDS ORDERED: HALOPERIDOL 5 MG TABLET PO SCH (09:00)
[2023-05-25] MEDS ORDERED: BENZTROPINE MESYLATE (1 MG) 1 MG TABLET PO SCH (09:00)
[2023-05-25] MEDS ORDERED: DOCUSATE SODIUM 100 MG CAPSULE PO SCH (09:00)
[2023-05-25] MEDS ORDERED: LEVETIRACETAM (250 MG) 250 MG TABLET PO SCH (09:00)
[2023-05-25] MEDS ORDERED: LACTOBACILLUS RHAMNOSUS GG 1 EACH CAP.SPRINK PO SCH (09:00)
[2023-05-25] MEDS ORDERED: TAMSULOSIN 0.4 MG CAP.SR.24H PO SCH (09:00)
[2023-05-25] MEDS ORDERED: FERROUS SULFATE (325 MG) 325 MG/TAB TABLET PO SCH (09:00)
[2023-05-25] MEDS: METOPROLOL TARTRATE 25 MG TABLET GT SCH ×2 (09:00→20:32)
[2023-05-25] MEDS ORDERED: FLUOXETINE HCL 20 MG CAPSULE PO SCH (09:00)
[2023-05-25] MEDS ORDERED: FAMOTIDINE (20 MG) 20 MG TABLET PO SCH (09:00)
[2023-05-25] MEDS: DOCUSATE SODIUM LIQ 100 MG/10 ML UDC GT SCH ×2 (09:03→16:19)
[2023-05-25] MEDS: LACTOBACILLUS RHAMNOSUS GG 1 EACH CAP.SPRINK GT SCH ×3 (09:04→16:18)
[2023-05-25] MEDS: LEVETIRACETAM SOL (5 ML) 100 MG/ML UDC GT SCH ×2 (09:04→20:31)
[2023-05-25 09:08] LABS: BASOPHILS # (AUTO) 0.1 K/uL (0.0-0.2); BASOPHILS % (AUTO) 0.7 % (0.0-2.0); EOSINOPHILS % (AUTO) 3.5 % (0.0-6.0); HEMATOCRIT 27 % (39-51); HEMOGLOBIN 8.8 g/dL (13.5-17.5); LYMPHOCYTES # (AUTO) 1.2 K/uL (0.8-4.8); LYMPHOCYTES % (AUTO) 13.4 % (20.0-44.0); MEAN CORPUSCULAR HGB CONC 32 g/dl (31.0-36.0); MEAN CORPUSCULAR VOLUME 77 fL (80-96); MONOCYTES # (AUTO) 0.6 K/uL (0.1-1.30); MONOCYTES % (AUTO) 6.4 % (2.0-12.0); NEUTROPHILS # (AUTO) 6.6 K/uL (1.8-8.9); PLATELET COUNT (AUTO) 382 K/uL (150-450); RED BLOOD CELL COUNT(AUTO) 3.55 MIL/uL (4.5-6.0); WHITE BLOOD COUNT (AUTO) 8.7 K/uL (4.3-11.0)
[2023-05-25] MEDS: MEMANTINE HCL 5 MG TABLET GT SCH ×2 (09:12→16:20)
[2023-05-25] MEDS: PROSOURCE / PROSTAT (PYXIS) 30 ML UDC GT SCH (09:12)
[2023-05-25] MEDS: FINASTERIDE (5 MG) 5 MG TABLET GT SCH (09:12)
[2023-05-25] MEDS: FLUOXETINE HCL 20 MG CAPSULE GT SCH (09:12)
[2023-05-25] MEDS: PANTOPRAZOLE 40 MG/PACK PACK NG SCH (09:19)
[2023-05-25 09:25] LABS: ALBUMIN 2.2 g/dL (3.4-5.0); BILIRUBIN,TOTAL 0.6 mg/dL (0.2-1.0); CALCIUM, SERUM 8.3 mg/dL (8.5-10.1); CREATININE 0.7 mg/dL (0.6-1.3); MAGNESIUM 1.8 mg/dL (1.8-2.4); PHOSPHORUS 3.5 mg/dL (2.5-4.9); POTASSIUM 3.6 mmol/L (3.5-5.1); TOTAL PROTEIN, SERUM 7.3 g/dL (6.4-8.2)
[2023-05-25] MEDS: IV NS 0.9% 250 ML IV PRN (09:37)
[2023-05-25] MEDS: PIPERACILLIN /TAZOBACTAM 3.375 G in IV D5W 100 ML IV SCH ×2 (09:38→17:00)
[2023-05-25] MEDS: IPRATROPIUM NEB FS 0.5 MG/2.5 ML AMPUL.NEB NEB SCH ×2 (13:52→19:43)
[2023-05-25] MEDS: ALBUTEROL FS 2.5 MG/3 ML VIAL.NEB NEB SCH ×2 (13:52→19:43)
[2023-05-25] MEDS ORDERED: ACETAMINOPHEN 650 MG/20.3 ML UDC GT PRN (14:31)
[2023-05-25] MEDS ORDERED: DEXTROSE 50%-WATER 50 ML DISP.SYRIN IV PRN ×2 (17:00)
[2023-05-25] MEDS: BLOOD SUGAR DIAGNOSTIC 1 EACH STRIP IN SCH ×2 (17:01→23:39)
[2023-05-25] MEDS: GLUCERNA 1.2 1,000 ML BOTTLE NG PRN (17:42)
[2023-05-25] MEDS: LORAZEPAM 1 MG TABLET GT PRN (20:31)
[2023-05-25] MEDS: DONEPEZIL 5 MG TABLET GT SCH (21:49)
[2023-05-25] MEDS: clonazePAM 1 MG TABLET GT PRN (21:49)
[2023-05-25] MEDS: ATORVASTATIN 40 MG TABLET GT SCH (21:49)
[2023-05-26] VITALS (25 sets, daily range): BP systolic 118–175; BP diastolic 69–104; TEMP 97–100.9; O2SAT 95–100
[2023-05-26] MEDS: ALBUTEROL FS 2.5 MG/3 ML VIAL.NEB NEB SCH ×4 (01:34→20:12)
[2023-05-26] MEDS: IPRATROPIUM NEB FS 0.5 MG/2.5 ML AMPUL.NEB NEB SCH ×4 (01:34→20:12)
[2023-05-26] MEDS: PIPERACILLIN /TAZOBACTAM 3.375 G in IV D5W 100 ML IV SCH ×4 (02:00→17:33)
[2023-05-26] MEDS: IV NS 0.9% 1,000 ML IV SCH ×3 (02:01→20:02)
[2023-05-26] MEDS: BLOOD SUGAR DIAGNOSTIC 1 EACH STRIP IN SCH ×3 (05:06→17:48)
[2023-05-26 05:37] LABS: BASOPHILS % (AUTO) 0.2 % (0.0-2.0); EOSINOPHILS % (AUTO) 1.8 % (0.0-6.0); HEMATOCRIT 29 % (39-51); HEMOGLOBIN 9.2 g/dL (13.5-17.5); LYMPHOCYTES # (AUTO) 0.8 K/uL (0.8-4.8); LYMPHOCYTES % (AUTO) 8.1 % (20.0-44.0); MEAN CORPUSCULAR HGB CONC 32 g/dl (31.0-36.0); MEAN CORPUSCULAR VOLUME 78 fL (80-96); MONOCYTES # (AUTO) 0.7 K/uL (0.1-1.30); MONOCYTES % (AUTO) 7.1 % (2.0-12.0); NEUTROPHILS # (AUTO) 8.3 K/uL (1.8-8.9); NEUTROPHILS % (AUTO) 82.8 % (43.0-81.0); PLATELET COUNT (AUTO) 324 K/uL (150-450); RED BLOOD CELL COUNT(AUTO) 3.71 MIL/uL (4.5-6.0)
[2023-05-26 05:54] LABS: BILIRUBIN,TOTAL 0.4 mg/dL (0.2-1.0); CALCIUM, SERUM 8.5 mg/dL (8.5-10.1); CREATININE 0.6 mg/dL (0.6-1.3); PHOSPHORUS 3.2 mg/dL (2.5-4.9); POTASSIUM 3.6 mmol/L (3.5-5.1); TOTAL PROTEIN, SERUM 7.6 g/dL (6.4-8.2)
[2023-05-26] MEDS: IV NS 0.9% 250 ML IV PRN (08:17)
[2023-05-26] MEDS: FAMOTIDINE (20 MG) 20 MG TABLET GT SCH ×2 (08:18→17:09)
[2023-05-26] MEDS: VALPROIC ACID 250 MG/5 ML UDC GT SCH ×3 (08:18→17:09)
[2023-05-26] MEDS: ASPIRIN 81 MG TAB.CHEW GT SCH (08:18)
[2023-05-26] MEDS: OLANZAPINE 5 MG TABLET GT SCH ×3 (08:18→17:10)
[2023-05-26] MEDS: MULTIVITAMINS,THERAGRAN 1 UDTAB TABLET GT SCH (08:19)
[2023-05-26] MEDS: BENZTROPINE MESYLATE (1 MG) 1 MG TABLET GT SCH ×2 (08:19→17:08)
[2023-05-26] MEDS: LOSARTAN POTASSIUM 50 MG TABLET GT SCH (08:19)
[2023-05-26] MEDS: FLUOXETINE HCL 20 MG CAPSULE GT SCH (08:19)
[2023-05-26] MEDS: FERROUS SULFATE (325 MG) 325 MG/TAB TABLET GT SCH ×3 (08:20→17:09)
[2023-05-26] MEDS: METOPROLOL TARTRATE 25 MG TABLET GT SCH ×2 (08:20→21:00)
[2023-05-26] MEDS: PANTOPRAZOLE 40 MG/PACK PACK NG SCH (08:20)
[2023-05-26] MEDS: FINASTERIDE (5 MG) 5 MG TABLET GT SCH (08:20)
[2023-05-26] MEDS: LEVETIRACETAM SOL (5 ML) 100 MG/ML UDC GT SCH ×2 (08:20→21:30)
[2023-05-26] MEDS: DOCUSATE SODIUM LIQ 100 MG/10 ML UDC GT SCH ×2 (08:20→17:08)
[2023-05-26] MEDS: TAMSULOSIN 0.4 MG CAP.SR.24H GT SCH (08:20)
[2023-05-26] MEDS: LACTOBACILLUS RHAMNOSUS GG 1 EACH CAP.SPRINK GT SCH ×3 (08:21→17:08)
[2023-05-26] MEDS: MEMANTINE HCL 5 MG TABLET GT SCH ×2 (08:21→17:09)
[2023-05-26] MEDS: HALOPERIDOL 5 MG TABLET GT SCH ×3 (08:21→17:09)
[2023-05-26] MEDS: ENOXAPARIN SODIUM 40 MG/0.4 ML DISP.SYRIN SQ SCH (08:22)
[2023-05-26] MEDS: VANCOMYCIN 1 GM in IV D5W 250 ML IV SCH ×2 (08:27→20:02)
[2023-05-26] MEDS: PROSOURCE / PROSTAT (PYXIS) 30 ML UDC GT SCH (08:27)
[2023-05-26] MEDS: GLUCERNA 1.2 1,000 ML BOTTLE NG PRN (16:25)
[2023-05-26] MEDS: DONEPEZIL 5 MG TABLET GT SCH (21:30)
[2023-05-26] MEDS: ATORVASTATIN 40 MG TABLET GT SCH (21:31)
[2023-05-26] MEDS: clonazePAM 1 MG TABLET GT PRN (22:44)
[2023-05-27] VITALS (14 sets, daily range): BP systolic 148–174; BP diastolic 67–92; TEMP 97.5–98.3; O2SAT 94–99
[2023-05-27] MEDS: BLOOD SUGAR DIAGNOSTIC 1 EACH STRIP IN SCH ×4 (00:24→17:19)
[2023-05-27] MEDS: IPRATROPIUM NEB FS 0.5 MG/2.5 ML AMPUL.NEB NEB SCH ×4 (01:49→20:14)
[2023-05-27] MEDS: ALBUTEROL FS 2.5 MG/3 ML VIAL.NEB NEB SCH ×4 (01:49→20:14)
[2023-05-27] MEDS: PIPERACILLIN /TAZOBACTAM 3.375 G in IV D5W 100 ML IV SCH ×3 (02:42→17:10)
[2023-05-27] MEDS ORDERED: IV NS 0.9% 1,000 ML IV PRN (07:34)
[2023-05-27] MEDS: DOCUSATE SODIUM LIQ 100 MG/10 ML UDC GT SCH ×2 (08:35→16:07)
[2023-05-27] MEDS: FINASTERIDE (5 MG) 5 MG TABLET GT SCH (08:35)
[2023-05-27] MEDS: ASPIRIN 81 MG TAB.CHEW GT SCH (08:35)
[2023-05-27] MEDS: METOPROLOL TARTRATE 25 MG TABLET GT SCH ×2 (08:35→21:12)
[2023-05-27] MEDS: LEVETIRACETAM SOL (5 ML) 100 MG/ML UDC GT SCH ×2 (08:35→21:11)
[2023-05-27] MEDS: LACTOBACILLUS RHAMNOSUS GG 1 EACH CAP.SPRINK GT SCH ×3 (08:35→16:07)
[2023-05-27] MEDS: FAMOTIDINE (20 MG) 20 MG TABLET GT SCH ×2 (08:36→16:07)
[2023-05-27] MEDS: MEMANTINE HCL 5 MG TABLET GT SCH ×2 (08:36→16:06)
[2023-05-27] MEDS: hydrALAZINE HCL 50 MG TABLET PO SCH ×3 (08:36→16:06)
[2023-05-27] MEDS: BENZTROPINE MESYLATE (1 MG) 1 MG TABLET GT SCH ×2 (08:36→16:07)
[2023-05-27] MEDS: FLUOXETINE HCL 20 MG CAPSULE GT SCH (08:36)
[2023-05-27] MEDS: LOSARTAN POTASSIUM 50 MG TABLET GT SCH (08:37)
[2023-05-27] MEDS: OLANZAPINE 5 MG TABLET GT SCH ×3 (08:37→16:06)
[2023-05-27] MEDS: ENOXAPARIN SODIUM 40 MG/0.4 ML DISP.SYRIN SQ SCH (08:41)
[2023-05-27] MEDS: TAMSULOSIN 0.4 MG CAP.SR.24H GT SCH (08:44)
[2023-05-27] MEDS: VALPROIC ACID 250 MG/5 ML UDC GT SCH ×3 (08:44→16:07)
[2023-05-27] MEDS: MULTIVITAMINS,THERAGRAN 1 UDTAB TABLET GT SCH (08:44)
[2023-05-27] MEDS: PANTOPRAZOLE 40 MG/PACK PACK NG SCH (08:44)
[2023-05-27 08:45] LABS: BASOPHILS % (AUTO) 0.3 % (0.0-2.0); EOSINOPHILS % (AUTO) 3.7 % (0.0-6.0); HEMATOCRIT 35 % (39-51); HEMOGLOBIN 11.1 g/dL (13.5-17.5); LYMPHOCYTES # (AUTO) 0.8 K/uL (0.8-4.8); LYMPHOCYTES % (AUTO) 14.7 % (20.0-44.0); MEAN CORPUSCULAR HGB CONC 31 g/dl (31.0-36.0); MEAN CORPUSCULAR VOLUME 80 fL (80-96); MONOCYTES # (AUTO) 0.8 K/uL (0.1-1.30); MONOCYTES % (AUTO) 15.6 % (2.0-12.0); NEUTROPHILS # (AUTO) 3.5 K/uL (1.8-8.9); NEUTROPHILS % (AUTO) 65.7 % (43.0-81.0); PLATELET COUNT (AUTO) 331 K/uL (150-450); RED BLOOD CELL COUNT(AUTO) 4.42 MIL/uL (4.5-6.0); WHITE BLOOD COUNT (AUTO) 5.3 K/uL (4.3-11.0)
[2023-05-27] MEDS: PROSOURCE / PROSTAT (PYXIS) 30 ML UDC GT SCH (08:52)
[2023-05-27] MEDS: HALOPERIDOL 5 MG TABLET GT SCH ×3 (08:55→16:09)
[2023-05-27] MEDS: FERROUS SULFATE (325 MG) 325 MG/TAB TABLET GT SCH ×3 (08:55→16:06)
[2023-05-27] MEDS: VANCOMYCIN 1 GM in IV D5W 250 ML IV SCH ×2 (08:57→21:13)
[2023-05-27] MEDS: NITROGLYCERIN 30 GM TUBE TP SCH ×2 (08:57→21:14)
[2023-05-27 09:01] LABS: BILIRUBIN,TOTAL 0.3 mg/dL (0.2-1.0); CALCIUM, SERUM 8.7 mg/dL (8.5-10.1); CREATININE 0.6 mg/dL (0.6-1.3); MAGNESIUM 1.9 mg/dL (1.8-2.4); PHOSPHORUS 3.3 mg/dL (2.5-4.9); TOTAL PROTEIN, SERUM 7.8 g/dL (6.4-8.2)
[2023-05-27] MEDS ORDERED: NA P133E RC (10:25)
[2023-05-27] MEDS ORDERED: INSU100V11 SQ (10:25)
[2023-05-27] MEDS ORDERED: AMLO5TAB4 GT (10:25)
[2023-05-27] MEDS ORDERED: [UNRECOGNIZED DRUG - OTHER] GT (10:25)
[2023-05-27] MEDS ORDERED: CLON1TAB12 GT (10:25)
[2023-05-27] MEDS ORDERED: NORM210S TP (10:25)
[2023-05-27] MEDS ORDERED: BISA10SU11 RC (10:25)
[2023-05-27] MEDS ORDERED: APIX5TAB GT (10:25)
[2023-05-27] MEDS: GLUCERNA 1.2 1,000 ML BOTTLE NG PRN (11:50)
[2023-05-27] MEDS: DONEPEZIL 5 MG TABLET GT SCH (21:12)
[2023-05-27] MEDS: clonazePAM 1 MG TABLET GT PRN (21:13)
[2023-05-27] MEDS: ATORVASTATIN 40 MG TABLET GT SCH (21:14)
[2023-05-28] VITALS (14 sets, daily range): BP systolic 137–160; BP diastolic 79–99; TEMP 97.3–98.9; O2SAT 95–100
[2023-05-28] MEDS: BLOOD SUGAR DIAGNOSTIC 1 EACH STRIP IN SCH ×5 (00:38→23:44)
[2023-05-28] MEDS: INSULIN REGULAR, HUMAN 100 UNIT/ML 3 ML VIAL SQ PRN ×3 (00:43→23:51)
[2023-05-28] MEDS: ALBUTEROL FS 2.5 MG/3 ML VIAL.NEB NEB SCH ×4 (02:14→20:13)
[2023-05-28] MEDS: IPRATROPIUM NEB FS 0.5 MG/2.5 ML AMPUL.NEB NEB SCH ×4 (02:14→20:13)
[2023-05-28] MEDS: PIPERACILLIN /TAZOBACTAM 3.375 G in IV D5W 100 ML IV SCH ×3 (02:16→17:25)
[2023-05-28 05:51] LABS: CALCIUM, SERUM 9.3 mg/dL (8.5-10.1); CREATININE 0.6 mg/dL (0.6-1.3); POTASSIUM 3.5 mmol/L (3.5-5.1)
[2023-05-28] MEDS: LOSARTAN POTASSIUM 50 MG TABLET GT SCH (09:16)
[2023-05-28] MEDS: MEMANTINE HCL 5 MG TABLET GT SCH ×2 (09:17→16:28)
[2023-05-28] MEDS: LACTOBACILLUS RHAMNOSUS GG 1 EACH CAP.SPRINK GT SCH ×3 (09:17→16:28)
[2023-05-28] MEDS: FLUOXETINE HCL 20 MG CAPSULE GT SCH (09:17)
[2023-05-28] MEDS: ASPIRIN 81 MG TAB.CHEW GT SCH (09:17)
[2023-05-28] MEDS: DOCUSATE SODIUM LIQ 100 MG/10 ML UDC GT SCH ×2 (09:17→16:27)
[2023-05-28] MEDS: FAMOTIDINE (20 MG) 20 MG TABLET GT SCH ×2 (09:17→16:28)
[2023-05-28] MEDS: BENZTROPINE MESYLATE (1 MG) 1 MG TABLET GT SCH ×2 (09:17→16:28)
[2023-05-28] MEDS: HALOPERIDOL 5 MG TABLET GT SCH ×3 (09:17→16:28)
[2023-05-28] MEDS: LEVETIRACETAM SOL (5 ML) 100 MG/ML UDC GT SCH ×2 (09:17→20:24)
[2023-05-28] MEDS: FINASTERIDE (5 MG) 5 MG TABLET GT SCH (09:17)
[2023-05-28] MEDS: FERROUS SULFATE (325 MG) 325 MG/TAB TABLET GT SCH ×3 (09:17→16:28)
[2023-05-28] MEDS: MULTIVITAMINS,THERAGRAN 1 UDTAB TABLET GT SCH (09:18)
[2023-05-28] MEDS: METOPROLOL TARTRATE 25 MG TABLET GT SCH ×2 (09:18→20:25)
[2023-05-28] MEDS: PROSOURCE / PROSTAT (PYXIS) 30 ML UDC GT SCH (09:19)
[2023-05-28] MEDS: NITROGLYCERIN 30 GM TUBE TP SCH ×2 (09:19→20:24)
[2023-05-28] MEDS: VALPROIC ACID 250 MG/5 ML UDC GT SCH ×3 (09:25→16:27)
[2023-05-28] MEDS: TAMSULOSIN 0.4 MG CAP.SR.24H GT SCH (09:25)
[2023-05-28] MEDS: PANTOPRAZOLE 40 MG/PACK PACK NG SCH (09:25)
[2023-05-28] MEDS: OLANZAPINE 5 MG TABLET GT SCH ×3 (09:25→16:28)
[2023-05-28] MEDS: VANCOMYCIN 1 GM in IV D5W 250 ML IV SCH ×2 (09:26→20:24)
[2023-05-28] MEDS: hydrALAZINE HCL 50 MG TABLET PO SCH ×3 (09:26→16:28)
[2023-05-28] MEDS: ENOXAPARIN SODIUM 40 MG/0.4 ML DISP.SYRIN SQ SCH (09:28)
[2023-05-28] MEDS: LORAZEPAM 1 MG TABLET GT PRN (11:15)
[2023-05-28] MEDS: GLUCERNA 1.2 1,000 ML BOTTLE NG PRN (16:53)
[2023-05-28] MEDS: DONEPEZIL 5 MG TABLET GT SCH (21:00)
[2023-05-28] MEDS: ATORVASTATIN 40 MG TABLET GT SCH (21:00)
[2023-05-28] MEDS: POLYETHYLENE GLYCOL 3350 17 GM POWD.PACK PEG SCH (22:02)
[2023-05-29] VITALS (12 sets, daily range): BP systolic 119–148; BP diastolic 70–84; TEMP 96.9–97.6; O2SAT 87–100
[2023-05-29] MEDS: IPRATROPIUM NEB FS 0.5 MG/2.5 ML AMPUL.NEB NEB SCH ×4 (01:44→19:39)
[2023-05-29] MEDS: ALBUTEROL FS 2.5 MG/3 ML VIAL.NEB NEB SCH ×4 (01:44→19:39)
[2023-05-29] MEDS: PIPERACILLIN /TAZOBACTAM 3.375 G in IV D5W 100 ML IV SCH ×3 (02:01→18:50)
[2023-05-29] MEDS: BLOOD SUGAR DIAGNOSTIC 1 EACH STRIP IN SCH ×3 (06:09→18:33)
[2023-05-29] MEDS: INSULIN REGULAR, HUMAN 100 UNIT/ML 3 ML VIAL SQ PRN ×2 (06:10→18:34)
[2023-05-29] MEDS: ENOXAPARIN SODIUM 40 MG/0.4 ML DISP.SYRIN SQ SCH (08:21)
[2023-05-29 09:37] LABS: CALCIUM, SERUM 9.1 mg/dL (8.5-10.1); CREATININE 0.7 mg/dL (0.6-1.3); POTASSIUM 3.9 mmol/L (3.5-5.1)
[2023-05-29] MEDS: DONEPEZIL 5 MG TABLET GT SCH ×2 (10:16→21:30)
[2023-05-29] MEDS: PANTOPRAZOLE 40 MG/PACK PACK NG SCH (10:16)
[2023-05-29] MEDS: TAMSULOSIN 0.4 MG CAP.SR.24H GT SCH (10:17)
[2023-05-29] MEDS: MULTIVITAMINS,THERAGRAN 1 UDTAB TABLET GT SCH (10:17)
[2023-05-29] MEDS: MEMANTINE HCL 5 MG TABLET GT SCH ×2 (10:17→18:54)
[2023-05-29] MEDS: FLUOXETINE HCL 20 MG CAPSULE GT SCH (10:18)
[2023-05-29] MEDS: ASPIRIN 81 MG TAB.CHEW GT SCH (10:18)
[2023-05-29] MEDS: HALOPERIDOL 5 MG TABLET GT SCH ×3 (10:18→18:51)
[2023-05-29] MEDS: DOCUSATE SODIUM LIQ 100 MG/10 ML UDC GT SCH ×2 (10:19→18:54)
[2023-05-29] MEDS: FAMOTIDINE (20 MG) 20 MG TABLET GT SCH ×2 (10:19→18:54)
[2023-05-29] MEDS: clonazePAM 1 MG TABLET GT PRN ×2 (10:19→18:52)
[2023-05-29] MEDS: FERROUS SULFATE (325 MG) 325 MG/TAB TABLET GT SCH ×3 (10:19→18:53)
[2023-05-29] MEDS: BENZTROPINE MESYLATE (1 MG) 1 MG TABLET GT SCH ×2 (10:19→18:53)
[2023-05-29] MEDS: OLANZAPINE 5 MG TABLET GT SCH ×3 (10:20→18:52)
[2023-05-29] MEDS: VANCOMYCIN 1 GM in IV D5W 250 ML IV SCH ×2 (10:20→21:33)
[2023-05-29] MEDS: FINASTERIDE (5 MG) 5 MG TABLET GT SCH (10:21)
[2023-05-29] MEDS: LACTOBACILLUS RHAMNOSUS GG 1 EACH CAP.SPRINK GT SCH ×3 (10:21→18:51)
[2023-05-29] MEDS: VALPROIC ACID 250 MG/5 ML UDC GT SCH ×3 (10:22→18:54)
[2023-05-29] MEDS: LEVETIRACETAM SOL (5 ML) 100 MG/ML UDC GT SCH ×2 (10:23→21:26)
[2023-05-29] MEDS: METOPROLOL TARTRATE 25 MG TABLET GT SCH ×2 (10:24→21:31)
[2023-05-29] MEDS: hydrALAZINE HCL 50 MG TABLET PO SCH ×3 (10:25→18:53)
[2023-05-29] MEDS: LOSARTAN POTASSIUM 50 MG TABLET GT SCH (10:25)
[2023-05-29] MEDS: NITROGLYCERIN 30 GM TUBE TP SCH ×2 (10:26→21:48)
[2023-05-29] MEDS: PROSOURCE / PROSTAT (PYXIS) 30 ML UDC GT SCH (10:27)
[2023-05-29] MEDS ORDERED: NA PHOS,M-B/NA PHOS,DI-BA 1 EA ENEMA RC ONE ×2 (11:30→21:00)
[2023-05-29] MEDS ORDERED: BISACODYL SUPP (10 MG) 10 MG/SUPP.RECT SUPP.RECT RC PRN (11:30)
[2023-05-29] MEDS ORDERED: LORAZEPAM INJ 2 MG/ML VIAL IV PRN (12:30)
[2023-05-29] MEDS: GLUCERNA 1.2 1,000 ML BOTTLE NG PRN (16:48)
[2023-05-29] MEDS: POLYETHYLENE GLYCOL 3350 17 GM POWD.PACK PEG SCH (21:26)
[2023-05-29] MEDS: ATORVASTATIN 40 MG TABLET GT SCH (21:30)
[2023-05-30] VITALS (10 sets, daily range): BP systolic 126–149; BP diastolic 81–111; TEMP 97.1–97.9; O2SAT 87–99
[2023-05-30] MEDS: INSULIN REGULAR, HUMAN 100 UNIT/ML 3 ML VIAL SQ PRN ×3 (00:03→12:19)
[2023-05-30] MEDS: IPRATROPIUM NEB FS 0.5 MG/2.5 ML AMPUL.NEB NEB SCH ×4 (01:45→19:59)
[2023-05-30] MEDS: ALBUTEROL FS 2.5 MG/3 ML VIAL.NEB NEB SCH ×4 (01:45→19:59)
[2023-05-30] MEDS: PIPERACILLIN /TAZOBACTAM 3.375 G in IV D5W 100 ML IV SCH ×3 (01:54→17:34)
[2023-05-30] MEDS: BLOOD SUGAR DIAGNOSTIC 1 EACH STRIP IN SCH ×4 (05:52→17:34)
[2023-05-30 06:28] LABS: BASOPHILS % (AUTO) 0.3 % (0.0-2.0); EOSINOPHILS % (AUTO) 3.5 % (0.0-6.0); HEMATOCRIT 36 % (39-51); HEMOGLOBIN 11.6 g/dL (13.5-17.5); LYMPHOCYTES % (AUTO) 13.2 % (20.0-44.0); MEAN CORPUSCULAR HGB CONC 33 g/dl (31.0-36.0); MEAN CORPUSCULAR VOLUME 77 fL (80-96); MONOCYTES # (AUTO) 0.6 K/uL (0.1-1.30); MONOCYTES % (AUTO) 7.7 % (2.0-12.0); NEUTROPHILS # (AUTO) 5.8 K/uL (1.8-8.9); NEUTROPHILS % (AUTO) 75.3 % (43.0-81.0); PLATELET COUNT (AUTO) 426 K/uL (150-450); RED BLOOD CELL COUNT(AUTO) 4.62 MIL/uL (4.5-6.0); WHITE BLOOD COUNT (AUTO) 7.7 K/uL (4.3-11.0)
[2023-05-30 07:08] LABS: CALCIUM, SERUM 9.6 mg/dL (8.5-10.1); CREATININE 0.7 mg/dL (0.6-1.3); MAGNESIUM 1.9 mg/dL (1.8-2.4); PHOSPHORUS 4.3 mg/dL (2.5-4.9); POTASSIUM 3.7 mmol/L (3.5-5.1)
[2023-05-30] MEDS: ASPIRIN 81 MG TAB.CHEW GT SCH (09:25)
[2023-05-30] MEDS: LACTOBACILLUS RHAMNOSUS GG 1 EACH CAP.SPRINK GT SCH ×3 (09:25→17:03)
[2023-05-30] MEDS: BENZTROPINE MESYLATE (1 MG) 1 MG TABLET GT SCH ×2 (09:25→17:03)
[2023-05-30] MEDS: FINASTERIDE (5 MG) 5 MG TABLET GT SCH (09:25)
[2023-05-30] MEDS: TAMSULOSIN 0.4 MG CAP.SR.24H GT SCH (09:25)
[2023-05-30] MEDS: VALPROIC ACID 250 MG/5 ML UDC GT SCH ×3 (09:25→17:02)
[2023-05-30] MEDS: FERROUS SULFATE (325 MG) 325 MG/TAB TABLET GT SCH ×3 (09:25→17:02)
[2023-05-30] MEDS: LEVETIRACETAM SOL (5 ML) 100 MG/ML UDC GT SCH ×2 (09:25→22:00)
[2023-05-30] MEDS: DOCUSATE SODIUM LIQ 100 MG/10 ML UDC GT SCH ×2 (09:25→17:00)
[2023-05-30] MEDS: PANTOPRAZOLE 40 MG/PACK PACK NG SCH (09:25)
[2023-05-30] MEDS: FLUOXETINE HCL 20 MG CAPSULE GT SCH (09:26)
[2023-05-30] MEDS: MULTIVITAMINS,THERAGRAN 1 UDTAB TABLET GT SCH (09:26)
[2023-05-30] MEDS: OLANZAPINE 5 MG TABLET GT SCH ×3 (09:26→17:02)
[2023-05-30] MEDS: MEMANTINE HCL 5 MG TABLET GT SCH ×2 (09:26→17:03)
[2023-05-30] MEDS: HALOPERIDOL 5 MG TABLET GT SCH ×3 (09:26→17:03)
[2023-05-30] MEDS: hydrALAZINE HCL 50 MG TABLET PO SCH ×3 (09:27→17:03)
[2023-05-30] MEDS: FAMOTIDINE (20 MG) 20 MG TABLET GT SCH ×2 (09:27→17:03)
[2023-05-30] MEDS: METOPROLOL TARTRATE 25 MG TABLET GT SCH ×2 (09:27→22:01)
[2023-05-30] MEDS: LOSARTAN POTASSIUM 50 MG TABLET GT SCH (09:28)
[2023-05-30] MEDS: NITROGLYCERIN 30 GM TUBE TP SCH ×2 (09:28→22:01)
[2023-05-30] MEDS: ENOXAPARIN SODIUM 40 MG/0.4 ML DISP.SYRIN SQ SCH (09:29)
[2023-05-30] MEDS: PROSOURCE / PROSTAT (PYXIS) 30 ML UDC GT SCH (09:40)
[2023-05-30] MEDS: VANCOMYCIN 1 GM in IV D5W 250 ML IV SCH ×2 (09:40→22:02)
[2023-05-30 11:37] LABS: ALBUMIN 2.6 g/dL (3.4-5.0); BILIRUBIN,DIRECT 0.1 mg/dL (0.0-0.2); BILIRUBIN,TOTAL 0.2 mg/dL (0.2-1.0); TOTAL PROTEIN, SERUM 9.1 g/dL (6.4-8.2)
[2023-05-30] MEDS: GLUCERNA 1.2 1,000 ML BOTTLE NG PRN (18:16)
[2023-05-30] MEDS: ATORVASTATIN 40 MG TABLET GT SCH (22:00)
[2023-05-30] MEDS: DONEPEZIL 5 MG TABLET GT SCH (22:01)
[2023-05-30] MEDS: POLYETHYLENE GLYCOL 3350 17 GM POWD.PACK PEG SCH (22:02)
[2023-05-31] VITALS (12 sets, daily range): BP systolic 133–167; BP diastolic 66–88; TEMP 97.5–98.6; O2SAT 91–99
[2023-05-31] MEDS: BLOOD SUGAR DIAGNOSTIC 1 EACH STRIP IN SCH ×5 (00:31→23:33)
[2023-05-31] MEDS: INSULIN REGULAR, HUMAN 100 UNIT/ML 3 ML VIAL SQ PRN ×4 (00:37→23:34)
[2023-05-31] MEDS: ALBUTEROL FS 2.5 MG/3 ML VIAL.NEB NEB SCH ×4 (01:17→19:39)
[2023-05-31] MEDS: IPRATROPIUM NEB FS 0.5 MG/2.5 ML AMPUL.NEB NEB SCH ×4 (01:17→19:39)
[2023-05-31] MEDS: PIPERACILLIN /TAZOBACTAM 3.375 G in IV D5W 100 ML IV SCH ×2 (01:42→11:01)
[2023-05-31 08:02] LABS: BASOPHILS % (AUTO) 0.3 % (0.0-2.0); EOSINOPHILS % (AUTO) 3.5 % (0.0-6.0); HEMATOCRIT 33 % (39-51); HEMOGLOBIN 10.8 g/dL (13.5-17.5); LYMPHOCYTES # (AUTO) 0.7 K/uL (0.8-4.8); LYMPHOCYTES % (AUTO) 12.9 % (20.0-44.0); MEAN CORPUSCULAR HGB CONC 33 g/dl (31.0-36.0); MEAN CORPUSCULAR VOLUME 76 fL (80-96); MONOCYTES # (AUTO) 0.5 K/uL (0.1-1.30); MONOCYTES % (AUTO) 9.1 % (2.0-12.0); NEUTROPHILS # (AUTO) 4.3 K/uL (1.8-8.9); NEUTROPHILS % (AUTO) 74.2 % (43.0-81.0); PLATELET COUNT (AUTO) 441 K/uL (150-450); RED BLOOD CELL COUNT(AUTO) 4.39 MIL/uL (4.5-6.0); WHITE BLOOD COUNT (AUTO) 5.8 K/uL (4.3-11.0)
[2023-05-31 08:35] LABS: CALCIUM, SERUM 9.2 mg/dL (8.5-10.1); CREATININE 0.8 mg/dL (0.6-1.3); MAGNESIUM 1.8 mg/dL (1.8-2.4); PHOSPHORUS 3.8 mg/dL (2.5-4.9); POTASSIUM 3.3 mmol/L (3.5-5.1)
[2023-05-31] MEDS: ASPIRIN 81 MG TAB.CHEW GT SCH (08:57)
[2023-05-31] MEDS: BENZTROPINE MESYLATE (1 MG) 1 MG TABLET GT SCH ×2 (08:58→17:04)
[2023-05-31] MEDS: FAMOTIDINE (20 MG) 20 MG TABLET GT SCH ×2 (08:58→17:05)
[2023-05-31] MEDS: LEVETIRACETAM SOL (5 ML) 100 MG/ML UDC GT SCH ×2 (08:58→22:13)
[2023-05-31] MEDS: PANTOPRAZOLE 40 MG/PACK PACK NG SCH (08:58)
[2023-05-31] MEDS: FLUOXETINE HCL 20 MG CAPSULE GT SCH (08:58)
[2023-05-31] MEDS: LACTOBACILLUS RHAMNOSUS GG 1 EACH CAP.SPRINK GT SCH ×3 (08:58→17:04)
[2023-05-31] MEDS: TAMSULOSIN 0.4 MG CAP.SR.24H GT SCH (08:58)
[2023-05-31] MEDS: DOCUSATE SODIUM LIQ 100 MG/10 ML UDC GT SCH ×2 (08:58→17:04)
[2023-05-31] MEDS: VALPROIC ACID 250 MG/5 ML UDC GT SCH ×3 (08:58→17:04)
[2023-05-31] MEDS: FERROUS SULFATE (325 MG) 325 MG/TAB TABLET GT SCH ×3 (08:59→17:05)
[2023-05-31] MEDS: MULTIVITAMINS,THERAGRAN 1 UDTAB TABLET GT SCH (08:59)
[2023-05-31] MEDS: OLANZAPINE 5 MG TABLET GT SCH ×3 (08:59→22:09)
[2023-05-31] MEDS: FINASTERIDE (5 MG) 5 MG TABLET GT SCH (08:59)
[2023-05-31] MEDS: HALOPERIDOL 5 MG TABLET GT SCH ×4 (08:59→22:09)
[2023-05-31] MEDS: MEMANTINE HCL 5 MG TABLET GT SCH (08:59)
[2023-05-31] MEDS: METOPROLOL TARTRATE 25 MG TABLET GT SCH ×2 (08:59→22:12)
[2023-05-31] MEDS: LOSARTAN POTASSIUM 50 MG TABLET GT SCH (09:00)
[2023-05-31] MEDS: hydrALAZINE HCL 50 MG TABLET PO SCH ×3 (09:00→17:05)
[2023-05-31] MEDS: PROSOURCE / PROSTAT (PYXIS) 30 ML UDC GT SCH (09:01)
[2023-05-31] MEDS: ENOXAPARIN SODIUM 40 MG/0.4 ML DISP.SYRIN SQ SCH (09:03)
[2023-05-31] MEDS: VANCOMYCIN 1 GM in IV D5W 250 ML IV SCH (09:33)
[2023-05-31] MEDS: GLUCERNA 1.2 1,000 ML BOTTLE NG PRN ×2 (09:37→22:55)
[2023-05-31] MEDS: NITROGLYCERIN 30 GM TUBE TP SCH ×2 (09:59→22:12)
[2023-05-31] MEDS ORDERED: POTASSIUM CHLORIDE 20 MEQ POWDER PACKET GT ONE (10:00)
[2023-05-31] MEDS ORDERED: IOHEXOL-300 100 ML VIAL IV ONE (15:08)
[2023-05-31] MEDS ORDERED: IV NS 0.9% 250 ML IV ONE (15:08)
[2023-05-31] MEDS ORDERED: CT SWABBABLE VALVE TRANS SET 1 EA INFUS.SET MC ONE (15:09)
[2023-05-31] MEDS ORDERED: clonazePAM 1 MG TABLET GT PRN (16:30)
[2023-05-31] MEDS ORDERED: VANCOMYCIN 0.75 GM in IV D5W 250 ML IV SCH (21:00)
[2023-05-31] MEDS ORDERED: NA PHOS,M-B/NA PHOS,DI-BA 1 EA ENEMA RC ONE (21:00)
[2023-05-31] MEDS: DONEPEZIL 5 MG TABLET GT SCH (22:09)
[2023-05-31] MEDS: ATORVASTATIN 40 MG TABLET GT SCH (22:09)
[2023-05-31] MEDS: POLYETHYLENE GLYCOL 3350 17 GM POWD.PACK PEG SCH (22:10)
[2023-06-01] VITALS (9 sets, daily range): BP systolic 128–139; BP diastolic 70–71; TEMP 98–98.6; O2SAT 93–100
[2023-06-01] MEDS: IPRATROPIUM NEB FS 0.5 MG/2.5 ML AMPUL.NEB NEB SCH ×3 (00:52→13:33)
[2023-06-01] MEDS: ALBUTEROL FS 2.5 MG/3 ML VIAL.NEB NEB SCH ×3 (00:52→13:33)
[2023-06-01] MEDS: GLUCERNA 1.2 1,000 ML BOTTLE NG PRN (05:53)
[2023-06-01] MEDS: BLOOD SUGAR DIAGNOSTIC 1 EACH STRIP IN SCH ×2 (06:17→12:28)
[2023-06-01] MEDS: INSULIN REGULAR, HUMAN 100 UNIT/ML 3 ML VIAL SQ PRN (06:17)
[2023-06-01] MEDS: ASPIRIN 81 MG TAB.CHEW GT SCH (08:12)
[2023-06-01] MEDS: FINASTERIDE (5 MG) 5 MG TABLET GT SCH (08:12)
[2023-06-01] MEDS: TAMSULOSIN 0.4 MG CAP.SR.24H GT SCH (08:12)
[2023-06-01] MEDS: BENZTROPINE MESYLATE (1 MG) 1 MG TABLET GT SCH (08:13)
[2023-06-01] MEDS: DOCUSATE SODIUM LIQ 100 MG/10 ML UDC GT SCH (08:13)
[2023-06-01] MEDS: OLANZAPINE 5 MG TABLET GT SCH ×2 (08:13→12:29)
[2023-06-01] MEDS: METOPROLOL TARTRATE 25 MG TABLET GT SCH (08:13)
[2023-06-01] MEDS: VALPROIC ACID 250 MG/5 ML UDC GT SCH ×2 (08:13→12:29)
[2023-06-01] MEDS: LEVETIRACETAM SOL (5 ML) 100 MG/ML UDC GT SCH (08:13)
[2023-06-01] MEDS: LACTOBACILLUS RHAMNOSUS GG 1 EACH CAP.SPRINK GT SCH ×2 (08:14→12:30)
[2023-06-01] MEDS: hydrALAZINE HCL 50 MG TABLET PO SCH ×2 (08:14→12:34)
[2023-06-01] MEDS: FERROUS SULFATE (325 MG) 325 MG/TAB TABLET GT SCH ×2 (08:14→12:30)
[2023-06-01] MEDS: MULTIVITAMINS,THERAGRAN 1 UDTAB TABLET GT SCH (08:14)
[2023-06-01] MEDS: LOSARTAN POTASSIUM 50 MG TABLET GT SCH (08:14)
[2023-06-01] MEDS: HALOPERIDOL 5 MG TABLET GT SCH ×2 (08:15→12:30)
[2023-06-01] MEDS: ENOXAPARIN SODIUM 40 MG/0.4 ML DISP.SYRIN SQ SCH (08:15)
[2023-06-01] MEDS: PANTOPRAZOLE 40 MG/PACK PACK NG SCH (08:15)
[2023-06-01] MEDS: NITROGLYCERIN 30 GM TUBE TP SCH (08:16)
[2023-06-01] MEDS: PROSOURCE / PROSTAT (PYXIS) 30 ML UDC GT SCH (08:16)
[2023-06-01] MEDS: FAMOTIDINE (20 MG) 20 MG TABLET GT SCH (08:16)
[2023-06-01] MEDS ORDERED: FLUOXETINE HCL 20 MG CAPSULE GT SCH (09:00)
[2023-06-01 09:21] LABS: CALCIUM, SERUM 9.1 mg/dL (8.5-10.1); CREATININE 0.8 mg/dL (0.6-1.3); MAGNESIUM 1.8 mg/dL (1.8-2.4); PHOSPHORUS 3.4 mg/dL (2.5-4.9); POTASSIUM 4.3 mmol/L (3.5-5.1)
[2023-06-01 11:24] LABS: BASOPHILS % (AUTO) 0.4 % (0.0-2.0); EOSINOPHILS % (AUTO) 1.8 % (0.0-6.0); HEMATOCRIT 30 % (39-51); HEMOGLOBIN 9.7 g/dL (13.5-17.5); LYMPHOCYTES # (AUTO) 1.2 K/uL (0.8-4.8); LYMPHOCYTES % (AUTO) 16.5 % (20.0-44.0); MEAN CORPUSCULAR HGB CONC 32 g/dl (31.0-36.0); MEAN CORPUSCULAR VOLUME 76 fL (80-96); MONOCYTES # (AUTO) 0.9 K/uL (0.1-1.30); NEUTROPHILS # (AUTO) 4.9 K/uL (1.8-8.9); NEUTROPHILS % (AUTO) 69.3 % (43.0-81.0); PLATELET COUNT (AUTO) 378 K/uL (150-450); RED BLOOD CELL COUNT(AUTO) 3.92 MIL/uL (4.5-6.0); WHITE BLOOD COUNT (AUTO) 7.1 K/uL (4.3-11.0)
== END 2023-06-01 15:30 | DRG 871 ==
LOC: ER 21:20 → ICU 05-25 01:32 → TELE1 05-26 16:10 → MEDSG1 05-29 08:30
PROVIDERS: ADMIT Internal Medicine; ATTEND Nurse Practitioner Family
DX: A41.9 Sepsis, unspecified organism (principal); I21.4 Non-ST elevation (NSTEMI) myocardial infarction; J96.01 Acute respiratory failure with hypoxia; J15.6 Pneumonia due to other Gram-negative bacteria; G93.1 Anoxic brain damage, not elsewhere classified; G93.49 Other encephalopathy; E44.0 Moderate protein-calorie malnutrition; Z68.1 Body mass index [BMI] 19.9 or less, adult; F05 Delirium due to known physiological condition; G40.909 Epilepsy, unspecified, not intractable, without status epilepticus; D50.9 Iron deficiency anemia, unspecified; E11.9 Type 2 diabetes mellitus without complications; E88.09 Other disorders of plasma-protein metabolism, not elsewhere classified; E78.5 Hyperlipidemia, unspecified; F31.9 Bipolar disorder, unspecified; I10 Essential (primary) hypertension; K21.9 Gastro-esophageal reflux disease without esophagitis; K59.00 Constipation, unspecified; R13.10 Dysphagia, unspecified; Z66 Do not resuscitate; Z78.1 Physical restraint status; Z79.01 Long term (current) use of anticoagulants; Z79.4 Long term (current) use of insulin; Z79.84 Long term (current) use of oral hypoglycemic drugs; Z79.899 Other long term (current) drug therapy; Z93.1 Gastrostomy status; Z20.822 Contact with and (suspected) exposure to COVID-19; N40.0 Benign prostatic hyperplasia without lower urinary tract symptoms; F29 Unspecified psychosis not due to a substance or known physiological condition; F20.9 Schizophrenia, unspecified; Z79.82 Long term (current) use of aspirin
CPT/HCPCS: 31720; 36415; 36600; 70450-TC; 71045-TC; 74018; 80048-TC; 80053-TC; 80076-TC; 80164-TC; 80202-TC; 82962-TC; 83605-TC; 83690-TC; 83735-TC; 83880; 84100-TC; 84484-TC; 85025-TC; 85730-TC; 87040-TC; 87086-TC; 94762-TC; 94799-TC; 95819-TC; A4223; C9803; G0378; J0692; J1650; J1815; J1953; J2543; J3370; J7030; J7050; J7060; Q9967

== ENCOUNTER 2023-07-01 03:43 | Inpatient (IN) | payer MEDICARE, OTHER ==
[~2023-07-01] VITALS: Ht 177.8 cm; Wt 63.5 kg
[~2023-07-01 03:43] MED LIST changes: -ACET650S11 RC; -AMIN30LI27 PO; +AMLO5TAB4 GT; +APIX5TAB GT; +BISA10SU11 RC; +CLON1TAB12 GT; -CLON1TAB12 PO; -FERR325T23 PO; -HALO5TAB8 PO; +INSU100V11 SQ; -INSU3INS8 SQ; +NA P133E RC; +NORM210S TP; -RIVA10TA PO; +[UNRECOGNIZED DRUG - OTHER] GT
[2023-07-01] MEDS ORDERED: IV NS 0.9% 1,000 ML BAG IV ONE (04:00)
[2023-07-01] MEDS ORDERED: PIPERACILLIN /TAZOBACTAM 3.375 G in IV D5W 50 ML IV ONE (04:00)
[2023-07-01] MEDS ORDERED: VANCOMYCIN 1 GM in IV D5W 250 ML IV ONE (04:00)
[2023-07-01] MEDS ORDERED: PIPERACI/TAZO 3.375GM/D5W 50ML PB IV ONE (04:07)
[2023-07-01 04:57] LABS: BASOPHILS % (AUTO) 0.4 % (0.0-2.0); EOSINOPHILS % (AUTO) 0.4 % (0.0-6.0); HEMATOCRIT 33 % (39-51); HEMOGLOBIN 10.3 g/dL (13.5-17.5); LYMPHOCYTES # (AUTO) 1.4 K/uL (0.8-4.8); LYMPHOCYTES % (AUTO) 12.3 % (20.0-44.0); MEAN CORPUSCULAR HEMOGLOBIN 24 PG (26.0-33.0); MEAN CORPUSCULAR HGB CONC 31 g/dl (31.0-36.0); MEAN CORPUSCULAR VOLUME 78 fL (80-96); MONOCYTES # (AUTO) 0.7 K/uL (0.1-1.30); MONOCYTES % (AUTO) 5.8 % (2.0-12.0); NEUTROPHILS # (AUTO) 9.4 K/uL (1.8-8.9); NEUTROPHILS % (AUTO) 81.1 % (43.0-81.0); PLATELET COUNT (AUTO) 258 K/uL (150-450); RED BLOOD CELL COUNT(AUTO) 4.23 MIL/uL (4.5-6.0); RED CELL DISTRIBUTION WIDTH 21.1 % (11.5-15.0); WHITE BLOOD COUNT (AUTO) 11.6 K/uL (4.3-11.0)
[2023-07-01] MEDS ORDERED: VANCOMYCIN 1 GM /D5W 250 ML PB IV ONE (05:10)
[2023-07-01 05:11] LABS: INR 1.14 (0.91-1.10); PARTIAL THROMBOPLASTIN TIME 29.2 SEC (24.3-34.3); PROTHROMBIN TIME 11.9 SECS (9.2-11.1)
[2023-07-01 05:18] LABS: CALCIUM, SERUM 9.6 mg/dL (8.5-10.1); CARBON DIOXIDE 30 mmol/L (21-32); CHLORIDE 101 mmol/L (98-107); CREATININE 1.4 mg/dL (0.6-1.3); GLUCOSE 90 mg/dL (74-106); POTASSIUM 4.1 mmol/L (3.5-5.1); SODIUM SERUM 139 mmol/L (136-145); UREA NITROGEN, BLOOD 33 mg/dL (7-18)
[2023-07-01 05:21] LABS: APPEARANCE,URINE CLEAR (CLEAR); BILIRUBIN,URINE NEGATIVE (NEGATIVE); BLOOD, URINE 3+ Ery/uL (NEGATIVE); COLOR,URINE YELLOW (YELLOW); KETONES,URINE NEGATIVE (NEGATIVE); LEUKOCYTE ESTERASE ,URINE TRACE (NEGATIVE); NITRITE, URINE NEGATIVE (NEGATIVE); PH,URINE 6.5 (5.0-8.0); PROTEIN,URINE TRACE mg/dl (NEGATIVE); UGLUCOSE NEGATIVE (NEGATIVE)
[2023-07-01 05:24] LABS: ALANINE AMINOTRANSFERASE 31 U/L (12-78); ALBUMIN 2.9 g/dL (3.4-5.0); ALKALINE PHOSPHATASE 100 U/L (46-116); ASPARTATE AMINOTRANSFERASE 115 U/L (15-37); BILIRUBIN,DIRECT 0.1 mg/dL (0.0-0.2); BILIRUBIN,TOTAL 0.3 mg/dL (0.2-1.0); TOTAL PROTEIN, SERUM 9.5 g/dL (6.4-8.2)
[2023-07-01 05:25] LABS: ADD URINE CULTURE NO; BACTERIA,URINE Rare /HPF (None Seen); SQUAMOUS EPITHELIAL CELL,UR Few /HPF (None Seen)
[2023-07-01] MEDS ORDERED: MAGNESIUM HYDROXIDE 30 ML UDC PO PRN (06:00)
[2023-07-01] MEDS ORDERED: Z GUARD REMEDY 4 OZ OINT TP PRN (06:00)
[2023-07-01] MEDS ORDERED: ZOLPIDEM TARTRATE 5 MG TABLET PO PRN (06:00)
[2023-07-01] MEDS ORDERED: ACETAMINOPHEN 325 MG TABLET PO PRN (06:00)
[2023-07-01] MEDS ORDERED: MAG HYDROX/AL HYDROX/SIMETH 30 ML UDC PO PRN (06:00)
[2023-07-01] MEDS ORDERED: ONDANSETRON HCL/PF 4 MG/2 ML VIAL IVP PRN (06:00)
[2023-07-01] MEDS ORDERED: DEXTROSE 50%-WATER 50 ML DISP.SYRIN ONE (08:37)
[2023-07-01] MEDS ORDERED: HALO5TAB GT (08:40)
[2023-07-01] MEDS ORDERED: MULT9LIQ6 GT (08:40)
[2023-07-01] MEDS ORDERED: ACET650S11 RC (08:40)
[2023-07-01] MEDS ORDERED: FLUO20TA28 GT (08:40)
[2023-07-01] MEDS ORDERED: NUT.237L31 GT (08:40)
[2023-07-01] MEDS ORDERED: OMEP40CA21 GT (08:40)
[2023-07-01] MEDS ORDERED: PANTOPRAZOLE 40 MG VIAL IV SCH (09:00)
[2023-07-01] MEDS ORDERED: DEXTROSE 50%-WATER 50 ML DISP.SYRIN IVP ONE ×2 (09:00→13:00)
[2023-07-01] MEDS: ASPIRIN 81 MG TAB.CHEW PO SCH (09:33)
[2023-07-01] MEDS: IV NS 0.9% 1,000 ML IV PRN ×2 (09:33→20:57)
[2023-07-01] MEDS: ZOSYN IVPB 3.375 G in IV D5W 50ml IV SCH ×3 (09:34→21:02)
[2023-07-01 12:00] VITALS: BP 113/66; TEMP 97.7; O2SAT 95
[2023-07-01] MEDS: BLOOD SUGAR DIAGNOSTIC 1 EACH STRIP IN SCH ×3 (13:46→20:58)
[2023-07-01 16:00] VITALS: BP 106/67; TEMP 97.6; O2SAT 100
[2023-07-01] MEDS: VANCOMYCIN HCL 0.75 GM in IV D5W 250 ML IV SCH (16:16)
[2023-07-01] MEDS: GLUCERNA 1.2 1,000 ML BOTTLE GT PRN (18:57)
[2023-07-01 20:00] VITALS: BP 138/80; TEMP 98.1; O2SAT 100
[2023-07-02] VITALS (7 sets, daily range): BP systolic 125–149; BP diastolic 68–86; TEMP 97.8–98.7; O2SAT 96–100
[2023-07-02] MEDS: BLOOD SUGAR DIAGNOSTIC 1 EACH STRIP IN SCH ×6 (01:22→22:09)
[2023-07-02] MEDS: ZOSYN IVPB 3.375 G in IV D5W 50ml IV SCH ×2 (04:38→09:35)
[2023-07-02] MEDS: VANCOMYCIN HCL 0.75 GM in IV D5W 250 ML IV SCH (04:39)
[2023-07-02 05:58] LABS: EOSINOPHILS # (AUTO) 0.3 K/uL (0.0-0.7); EOSINOPHILS % (AUTO) 7.4 % (0.0-6.0); HEMATOCRIT 28 % (39-51); HEMOGLOBIN 9.1 g/dL (13.5-17.5); LYMPHOCYTES # (AUTO) 1.1 K/uL (0.8-4.8); LYMPHOCYTES % (AUTO) 25.1 % (20.0-44.0); MEAN CORPUSCULAR HEMOGLOBIN 25 PG (26.0-33.0); MEAN CORPUSCULAR HGB CONC 32 g/dl (31.0-36.0); MEAN CORPUSCULAR VOLUME 77 fL (80-96); MONOCYTES # (AUTO) 0.5 K/uL (0.1-1.30); MONOCYTES % (AUTO) 10.9 % (2.0-12.0); NEUTROPHILS # (AUTO) 2.3 K/uL (1.8-8.9); NEUTROPHILS % (AUTO) 55.6 % (43.0-81.0); PLATELET COUNT (AUTO) 182 K/uL (150-450); RED BLOOD CELL COUNT(AUTO) 3.69 MIL/uL (4.5-6.0); RED CELL DISTRIBUTION WIDTH 20.8 % (11.5-15.0); WHITE BLOOD COUNT (AUTO) 4.2 K/uL (4.3-11.0)
[2023-07-02 06:16] LABS: CALCIUM, SERUM 8.7 mg/dL (8.5-10.1); CREATININE 0.9 mg/dL (0.6-1.3); MAGNESIUM 1.7 mg/dL (1.8-2.4); PHOSPHORUS 3.5 mg/dL (2.5-4.9)
[2023-07-02 06:28] LABS: THYROID STIMULATING HORMONE 1.36 uIU/mL (0.358-3.74)
[2023-07-02] MEDS: ASPIRIN 81 MG TAB.CHEW PO SCH (08:29)
[2023-07-02] MEDS: IV NS 0.9% 1,000 ML IV PRN (08:29)
[2023-07-02] MEDS: PANTOPRAZOLE 40 MG/PACK PACK NG SCH (08:29)
[2023-07-02] MEDS ORDERED: MAGNESIUM OXIDE 400 MG TABLET GT ONE (10:00)
[2023-07-02] MEDS: LORAZEPAM 1 MG TABLET GT PRN ×3 (10:15→23:10)
[2023-07-02] MEDS: GLUCERNA 1.2 1,000 ML BOTTLE GT PRN (12:29)
[2023-07-02] MEDS: PIPERACILLIN /TAZOBACTAM 3.375 G in IV D5W 100 ML IV SCH (15:15)
[2023-07-02] MEDS: VANCOMYCIN 1 GM in IV D5W 250ml IV SCH (17:11)
[2023-07-03] VITALS: BP 150/76; TEMP 97.3; O2SAT 99
[2023-07-03] MEDS: PIPERACILLIN /TAZOBACTAM 3.375 G in IV D5W 100 ML IV SCH ×3 (00:18→16:18)
[2023-07-03] MEDS: BLOOD SUGAR DIAGNOSTIC 1 EACH STRIP IN SCH ×7 (01:35→23:36)
[2023-07-03] MEDS: GLUCERNA 1.2 1,000 ML BOTTLE GT PRN (04:15)
[2023-07-03] MEDS: VANCOMYCIN 1 GM in IV D5W 250ml IV SCH (05:05)
[2023-07-03 05:16] VITALS: BP 142/84; TEMP 97.3; O2SAT 99
[2023-07-03] MEDS: IV NS 0.9% 1,000 ML IV PRN ×2 (05:24→16:18)
[2023-07-03 07:18] LABS: BASOPHILS % (AUTO) 0.8 % (0.0-2.0); EOSINOPHILS # (AUTO) 0.3 K/uL (0.0-0.7); EOSINOPHILS % (AUTO) 6.9 % (0.0-6.0); HEMATOCRIT 29 % (39-51); HEMOGLOBIN 9.4 g/dL (13.5-17.5); LYMPHOCYTES # (AUTO) 1.2 K/uL (0.8-4.8); LYMPHOCYTES % (AUTO) 23.7 % (20.0-44.0); MEAN CORPUSCULAR HEMOGLOBIN 25 PG (26.0-33.0); MEAN CORPUSCULAR HGB CONC 32 g/dl (31.0-36.0); MEAN CORPUSCULAR VOLUME 77 fL (80-96); MONOCYTES # (AUTO) 0.5 K/uL (0.1-1.30); MONOCYTES % (AUTO) 10.5 % (2.0-12.0); NEUTROPHILS # (AUTO) 2.8 K/uL (1.8-8.9); NEUTROPHILS % (AUTO) 58.1 % (43.0-81.0); PLATELET COUNT (AUTO) 191 K/uL (150-450); RED BLOOD CELL COUNT(AUTO) 3.74 MIL/uL (4.5-6.0); RED CELL DISTRIBUTION WIDTH 20.8 % (11.5-15.0); WHITE BLOOD COUNT (AUTO) 4.9 K/uL (4.3-11.0)
[2023-07-03 07:35] LABS: ALBUMIN 2.3 g/dL (3.4-5.0); BILIRUBIN,TOTAL 0.2 mg/dL (0.2-1.0); CALCIUM, SERUM 8.9 mg/dL (8.5-10.1); CREATININE 0.8 mg/dL (0.6-1.3); MAGNESIUM 1.8 mg/dL (1.8-2.4); PHOSPHORUS 4.1 mg/dL (2.5-4.9); POTASSIUM 3.9 mmol/L (3.5-5.1); TOTAL PROTEIN, SERUM 7.9 g/dL (6.4-8.2)
[2023-07-03 08:00] VITALS: BP 173/97; TEMP 98.2; O2SAT 100
[2023-07-03] MEDS: ASPIRIN 81 MG TAB.CHEW PO SCH (08:30)
[2023-07-03] MEDS: LORAZEPAM 1 MG TABLET GT PRN ×2 (08:30→21:23)
[2023-07-03] MEDS: PANTOPRAZOLE 40 MG/PACK PACK NG SCH (08:30)
[2023-07-03] MEDS: ENOXAPARIN SODIUM 40 MG/0.4 ML DISP.SYRIN SQ SCH (08:32)
[2023-07-03 12:00] VITALS: BP 173/86; TEMP 97.9; O2SAT 97
[2023-07-03] MEDS: HALOPERIDOL LACTATE 10 MG/5 ML UDC GT SCH ×3 (12:36→20:08)
[2023-07-03 16:00] VITALS: BP 179/96; TEMP 97.6; O2SAT 100
[2023-07-03] MEDS ORDERED: AMLODIPINE BESYLATE 5 MG TABLET PO SCH (17:00)
[2023-07-03] MEDS ORDERED: ACETAMINOPHEN 650 MG/20.3 ML UDC GT PRN (17:00)
[2023-07-03] MEDS: AMLODIPINE BESYLATE 5 MG TABLET GT SCH (17:05)
[2023-07-03] MEDS: BENZTROPINE MESYLATE (1 MG) 1 MG TABLET GT SCH (17:05)
[2023-07-03 20:00] VITALS: BP 166/117; TEMP 98.2; O2SAT 99
[2023-07-03] MEDS ORDERED: VANCOMYCIN 1 GM in IV D5W 250ml IV SCH (20:00)
[2023-07-03] MEDS: VALPROIC ACID 250 MG/5 ML UDC GT SCH (20:08)
[2023-07-03] MEDS ORDERED: DEXTROSE 50%-WATER 50 ML DISP.SYRIN IV PRN (21:00)
[2023-07-03] MEDS: ZOSYN IVPB 3.375 G in IV D5W 50ml IV SCH (23:20)
[2023-07-04] MEDS: GLUCERNA 1.2 1,000 ML BOTTLE GT PRN ×2 (00:56→20:45)
[2023-07-04] MEDS: IV NS 0.9% 1,000 ML IV PRN (03:07)
[2023-07-04] MEDS: LORAZEPAM 1 MG TABLET GT PRN ×2 (03:49→17:26)
[2023-07-04 04:00] VITALS: BP 148/98; TEMP 98.2; O2SAT 99
[2023-07-04] MEDS: ZOSYN IVPB 3.375 G in IV D5W 50ml IV SCH (05:23)
[2023-07-04] MEDS: BLOOD SUGAR DIAGNOSTIC 1 EACH STRIP IN SCH ×3 (06:04→17:03)
[2023-07-04 06:07] LABS: CREATININE KINASE (CK),MB 4.2 ng/mL (0.0-10.4); PTH, INTACT 22 pg/mL (15-65)
[2023-07-04] MEDS ORDERED: LEVOFLOXACIN (250MG) 250 MG TABLET PO SCH (08:00)
[2023-07-04 08:02] LABS: CALCIUM, SERUM 9.4 mg/dL (8.5-10.1); CREATININE 0.7 mg/dL (0.6-1.3); POTASSIUM 4.2 mmol/L (3.5-5.1)
[2023-07-04 08:23] LABS: IRON, SERUM 49 ug/dl (50-175); TOTAL IRON BINDING CAPACITY 247 ug/dl (250-450)
[2023-07-04 08:34] LABS: FERRITIN 67 ng/mL (8-388)
[2023-07-04] MEDS: HALOPERIDOL LACTATE 10 MG/5 ML UDC GT SCH ×4 (08:58→20:45)
[2023-07-04] MEDS: DOXYCYCLINE HYCLATE (100 MG) 100 MG TABLET PO SCH ×2 (08:58→20:45)
[2023-07-04] MEDS: PANTOPRAZOLE 40 MG/PACK PACK NG SCH (08:58)
[2023-07-04] MEDS: ASPIRIN 81 MG TAB.CHEW GT SCH (08:58)
[2023-07-04] MEDS: VALPROIC ACID 250 MG/5 ML UDC GT SCH ×2 (08:59→20:45)
[2023-07-04] MEDS: BENZTROPINE MESYLATE (1 MG) 1 MG TABLET GT SCH ×2 (08:59→16:45)
[2023-07-04] MEDS: AMOX/CLAVULANATE 875 MG TABLET PO SCH ×2 (08:59→20:45)
[2023-07-04] MEDS: FLUOXETINE HCL 20 MG CAPSULE GT SCH (08:59)
[2023-07-04] MEDS: ENOXAPARIN SODIUM 40 MG/0.4 ML DISP.SYRIN SQ SCH (09:00)
[2023-07-04] MEDS: AMLODIPINE BESYLATE 5 MG TABLET GT SCH ×2 (09:25→16:45)
[2023-07-04 12:00] VITALS: BP 154/88; TEMP 97.7; O2SAT 100
[2023-07-04 12:03] LABS: *SPE A/G RATIO 0.6 (0.7-1.7); *SPE ALBUMIN 2.6 g/dL (2.9-4.4); *SPE ALPHA-1-GLOBULIN 0.3 g/dL (0.0-0.4); *SPE ALPHA-2-GLOBULIN 0.6 g/dL (0.4-1.0); *SPE BETA GLOBULIN 1.2 g/dL (0.7-1.3); *SPE GLOBULIN, TOTAL 4.7 g/dL (2.2-3.9); *SPE M-SPIKE Not Observed g/dL (Not Observed); *SPE PROTEIN TOTAL 7.3 g/dL (6.0-8.5); *SPEGAMMA GLOBULIN 2.6 g/dL (0.4-1.8)
[2023-07-04 20:00] VITALS: BP 152/104; TEMP 98.5; O2SAT 96
[2023-07-04] MEDS: LEVETIRACETAM SOL (5 ML) 100 MG/ML UDC GT SCH (20:45)
[2023-07-04] MEDS ORDERED: LISINOPRIL (20MG) 20 MG TABLET GT SCH (21:00)
[2023-07-05] MEDS: BLOOD SUGAR DIAGNOSTIC 1 EACH STRIP IN SCH ×3 (00:20→13:07)
[2023-07-05 04:00] VITALS: BP 146/82; TEMP 97.5; O2SAT 96
[2023-07-05 06:24] LABS: CALCIUM, SERUM 9.4 mg/dL (8.5-10.1); CREATININE 0.7 mg/dL (0.6-1.3); POTASSIUM 3.7 mmol/L (3.5-5.1)
[2023-07-05] MEDS ORDERED: AMOX1TAB16 PO (06:48)
[2023-07-05] MEDS ORDERED: DOXY100T2 PO (06:48)
[2023-07-05] MEDS ORDERED: AMLO-212 GT (06:48)
[2023-07-05] MEDS ORDERED: MAGNESIUM HYDROXIDE 30 ML UDC GT PRN (08:04)
[2023-07-05] MEDS ORDERED: DOXYCYCLINE HYCLATE (100 MG) 100 MG TABLET GT SCH (08:04)
[2023-07-05] MEDS ORDERED: MAG HYDROX/AL HYDROX/SIMETH 30 ML UDC GT PRN (08:04)
[2023-07-05] MEDS: VALPROIC ACID 250 MG/5 ML UDC GT SCH (08:20)
[2023-07-05] MEDS: BENZTROPINE MESYLATE (1 MG) 1 MG TABLET GT SCH (08:20)
[2023-07-05] MEDS: FLUOXETINE HCL 20 MG CAPSULE GT SCH (08:20)
[2023-07-05] MEDS: AMOX/CLAVULANATE 875 MG TABLET PO SCH (08:20)
[2023-07-05] MEDS: LEVETIRACETAM SOL (5 ML) 100 MG/ML UDC GT SCH (08:21)
[2023-07-05] MEDS: ASPIRIN 81 MG TAB.CHEW GT SCH (08:21)
[2023-07-05 08:22] VITALS: BP 153/82
[2023-07-05] MEDS: AMLODIPINE BESYLATE 5 MG TABLET GT SCH (08:22)
[2023-07-05] MEDS: HALOPERIDOL LACTATE 10 MG/5 ML UDC GT SCH ×2 (08:22→11:54)
[2023-07-05] MEDS: PANTOPRAZOLE 40 MG/PACK PACK NG SCH (08:26)
[2023-07-05] MEDS: ENOXAPARIN SODIUM 40 MG/0.4 ML DISP.SYRIN SQ SCH (08:27)
[2023-07-05] MEDS: LORAZEPAM 1 MG TABLET GT PRN (11:46)
[2023-07-05 13:03] VITALS: O2SAT 97
[2023-07-05] MEDS ORDERED: LISINOPRIL (20MG) 20 MG TABLET GT SCH (21:00)
== END 2023-07-05 13:40 | DRG 871 ==
LOC: ER 03:45 → TELE1 08:31 → MEDSG1 07-03 15:02
PROVIDERS: ATTEND Internal Medicine
PROC: 05H633Z Insertion of Infusion Device into Left Subclavian Vein, Percutaneous Approach (ICD-10-PCS; principal; 2023-07-04)
PROC: B547ZZA Ultrasonography of Left Subclavian Vein, Guidance (ICD-10-PCS; 2023-07-04)
DX: A41.9 Sepsis, unspecified organism (principal); G82.50 Quadriplegia, unspecified; J69.0 Pneumonitis due to inhalation of food and vomit; I21.A1 Myocardial infarction type 2; G93.41 Metabolic encephalopathy; N17.0 Acute kidney failure with tubular necrosis; J96.91 Respiratory failure, unspecified with hypoxia; G93.1 Anoxic brain damage, not elsewhere classified; I10 Essential (primary) hypertension; E11.9 Type 2 diabetes mellitus without complications; E86.0 Dehydration; Z20.822 Contact with and (suspected) exposure to COVID-19; Z79.01 Long term (current) use of anticoagulants; Z79.4 Long term (current) use of insulin; Z79.82 Long term (current) use of aspirin; J44.9 Chronic obstructive pulmonary disease, unspecified; N40.0 Benign prostatic hyperplasia without lower urinary tract symptoms; Z79.84 Long term (current) use of oral hypoglycemic drugs; I48.91 Unspecified atrial fibrillation; G40.909 Epilepsy, unspecified, not intractable, without status epilepticus; D50.9 Iron deficiency anemia, unspecified; F29 Unspecified psychosis not due to a substance or known physiological condition; F25.0 Schizoaffective disorder, bipolar type
CPT/HCPCS: 36415; 71045-TC; 80048-TC; 80053-TC; 80076-TC; 80164-TC; 80202-TC; 81001; 82550-TC; 82553; 82728-TC; 82962-TC; 83540-TC; 83605-TC; 83735-TC; 83970; 84100-TC; 84155; 84165; 84443-TC; 84484-TC; 85025-TC; 85730-TC; 87040-TC; 87086-TC; 93307-TC; 94799-TC; A4223; C9113; C9803; G0378; J1650; J1953; J2543; J3370; J7030; J7050; J7060